=== PATIENT | male | born 1965 | race Two or more races ===

== ENCOUNTER 2020-10-19 10:24 | Outpatient (REF) | payer BC, SELFPAY | END 2020-10-19 10:25 | disposition home or self-care (01) | LOC: HO.LAB 10:24 | PROVIDERS: Visit Provider Internal Medicine | DX: Z20.828 Contact with and (suspected) exposure to other viral communicable diseases (principal) | CPT/HCPCS: C9803; U0003 ==

== ENCOUNTER 2021-07-28 06:01 | Outpatient (REF) | payer BC, SELFPAY ==
[2021-07-28 11:55] LABS: Alanine Aminotransferase 31 U/L (0-40); Albumin Level 4.3 g/dL (3.5-5.0); Alkaline Phosphatase 55 U/L (39-117); Anion Gap 11 (12-20); Aspartate Amino Transferase 27 U/L (5-37); Bilirubin Total 0.7 mg/dL (0.0-1.0); Blood Urea Nitrogen 23 mg/dL (9-16); Calcium 9.7 mg/dL (8.4-10.2); Carbon Dioxide 29 mmol/L (22-29); Chloride 105 mmol/L (96-108); Cholesterol 247 mg/dL; Estimated Glomerular Filt Rate > 60; Glucose Fasting 81 mg/dL (60-99); HDL Cholesterol 37 mg/dL; LDL Cholesterol Calculated 183 mg/dl; Potassium 4.6 mmol/L (3.3-5.1); Sodium 140 mmol/L (135-145); Total Protein 7.9 g/dL (6.5-8.0); Triglycerides 137 mg/dL
[2021-07-28 12:19] LABS: TSH reflex Free T4 1.73 uIU/mL (0.32-4.0)
== END 2021-07-28 06:02 | disposition home or self-care (01) ==
LOC: HO.HMGCLDS 06:01
PROVIDERS: PCP Family Medicine; Visit Provider Family Medicine
DX: Z00.00 Encounter for general adult medical examination without abnormal findings (principal)
CPT/HCPCS: 36415; 80053; 80061; 84443

== ENCOUNTER → 2021-09-16 14:37 | Outpatient (BNVA) | payer BC, SELFPAY | PROVIDERS: PCP Family Medicine; Referring Provider Family Medicine; Visit Provider Internal Medicine Cardiovascular Disease | DX: I49.1 Atrial premature depolarization (principal); E78.5 Hyperlipidemia, unspecified; Z91.89 Other specified personal risk factors, not elsewhere classified | CPT/HCPCS: 93005 ==

== ENCOUNTER 2021-09-22 17:52 | Outpatient (REF) | payer BC, SELFPAY ==
--- NOTE | ~2021-09-22 | MR_ITS ---
EXAMINATION: MR THORACIC AND LUMBAR SPINE WITHOUT CONTRAST CLINICAL INFORMATION: Dorsalgia, unspecified. Patient states low back pain. COMPARISON: None TECHNIQUE: Multiplanar multisequence MRI of the thoracic and lumbar spine was performed without contrast. FINDINGS: Thoracic spine: The thoracic vertebral bodies maintain normal heights and alignment. There is accentuation of the normal thoracic kyphosis. There is mild multilevel intervertebral disc height loss. A hemangioma is seen within the T10 vertebral body. The thoracic cord signal appears normal. There is no disc herniation. No spinal canal or neural foraminal stenosis is seen. The extraspinal soft tissues are within normal limits. Small foci of T2 hyperintensity are seen within the liver which are indeterminate but statistically represent cysts or hemangiomata. Lumbar spine: The lumbar vertebral bodies maintain normal heights and alignment. There is mild disc height loss at L1-L2, L4-L5, and L5-S1. Minimal amount of bone marrow edema is seen at the superior endplate of L2. 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 The distal spinal cord appears normal. The conus medullaris terminates normally at the L1 level. The visualized paraspinal muscles and intra-abdominal and pelvic contents are within normal limits. L1-L2: No spinal canal or neural foraminal stenosis. L2-L3: No spinal canal stenosis. Mild facet arthropathy. No neural foraminal stenosis. L3-L4: Disc bulging with ligamentum flavum infolding moderate facet arthropathy. Mild bilateral neural foraminal stenosis. Mild spinal canal stenosis. L4-L5: Shallow left foraminal protrusion with mild to moderate facet arthropathy. Mild left neural foraminal stenosis with abutment of the exiting left L4 nerve root. No spinal canal stenosis. L5-S1: Shallow central protrusion with moderate facet arthropathy. No spinal canal or neural foraminal stenosis. MR/MR thoracic spine wo con IMPRESSION: Thoracic spine: Accentuation of the normal thoracic kyphosis. No disc herniation, spinal canal stenosis, or neural foraminal stenosis. Lumbar spine: Mild degenerative spondylosis. No significant spinal canal stenosis. At L4-L5 there is abutment of the exiting left L4 nerve root related to shallow foraminal protrusion.
== END 2021-09-22 17:53 | disposition home or self-care (01) ==
LOC: HO.MRI 17:52
PROVIDERS: Visit Provider Family Medicine
DX: M54.9 Dorsalgia, unspecified (principal); R20.0 Anesthesia of skin
CPT/HCPCS: 72146; 72148

== ENCOUNTER 2022-06-16 06:02 | Outpatient (REF) | payer BC, SELFPAY ==
[2022-06-16 11:41] LABS: Cholesterol 171 mg/dL; HDL Cholesterol 36 mg/dL; LDL Cholesterol Calculated 118 mg/dl; Triglycerides 89 mg/dL
== END 2022-06-16 06:03 | disposition home or self-care (01) ==
LOC: HO.HMGCLDS 06:02
PROVIDERS: PCP Family Medicine; Visit Provider Family Medicine
DX: Z00.00 Encounter for general adult medical examination without abnormal findings (principal)
CPT/HCPCS: 36415; 80061

== ENCOUNTER → 2022-12-24 14:59 | Outpatient (BNVA) | payer BC, SELFPAY | PROVIDERS: PCP Family Medicine; Referring Provider Family Medicine; Visit Provider Internal Medicine Cardiovascular Disease | DX: I49.1 Atrial premature depolarization (principal); E78.5 Hyperlipidemia, unspecified | CPT/HCPCS: 93005 ==

== ENCOUNTER 2023-01-08 06:08 | Outpatient (REF) | payer BC, SELFPAY ==
[2023-01-08 11:24] LABS: Appearance Urine Clear; Color Urine Yellow; Glucose Urine UA Negative (Negative); Leukocyte Esterase Urine Trace (Negative); Nitrite Urine Negative (Negative); PH 6.5 (5.0-9.0); UMIC TRIGGER UA YES; Urine Blood Negative (Negative); Urine Ketones Negative (Negative); Urine Protein Trace mg/dL (Neg-Trace)
[2023-01-08 11:27] LABS: Bacteria Urine None Seen (None Seen); Hyaline Casts Urine 0-2 /LPF (0-2); RBC Urine 0-2 /HPF (0-2); Squamous Epithelial Cell Urine 0-2 /HPF (0-2); WBC Urine 0-5 /HPF (0-5)
[2023-01-08 12:46] LABS: Alanine Aminotransferase 105 U/L (0-40); Albumin Level 4.2 g/dL (3.5-5.0); Alkaline Phosphatase 46 U/L (39-117); Anion Gap 11 (12-20); Aspartate Amino Transferase 52 U/L (5-37); Bilirubin Total 0.5 mg/dL (0.0-1.0); Blood Urea Nitrogen 18 mg/dL (9-16); Carbon Dioxide 27 mmol/L (22-29); Chloride 106 mmol/L (96-108); Cholesterol 154 mg/dL; Estimated Glomerular Filt Rate > 60; Glucose Fasting 94 mg/dL (60-99); HDL Cholesterol 39 mg/dL; LDL Cholesterol Calculated 92 mg/dl; Potassium 4.2 mmol/L (3.3-5.1); Prostate Specific Antigen Scr 1.04 ng/mL (<0.05-4.0); Sodium 140 mmol/L (135-145); TSH reflex Free T4 1.47 uIU/mL (0.32-4.0); Total Protein 7.2 g/dL (6.5-8.0); Triglycerides 117 mg/dL
[2023-01-08 12:54] LABS: Microalbum/Creatinine Ratio Ur 27.3 ug/mg cr
== END 2023-01-08 06:09 | disposition home or self-care (01) ==
LOC: HO.HMGCLDS 06:08
PROVIDERS: PCP Family Medicine; Visit Provider Family Medicine
DX: Z00.00 Encounter for general adult medical examination without abnormal findings (principal); I10 Essential (primary) hypertension; Z12.5 Encounter for screening for malignant neoplasm of prostate
CPT/HCPCS: 36415; 80053; 80061; 81001; 82043; 84153; 84443

== ENCOUNTER 2023-05-03 11:21 | Outpatient (REF) | payer BC, SELFPAY ==
[2023-05-03 14:21] LABS: Alanine Aminotransferase 29 U/L (0-40); Albumin Level 4.2 g/dL (3.5-5.0); Alkaline Phosphatase 56 U/L (39-117); Anion Gap 13 (12-20); Aspartate Amino Transferase 25 U/L (5-37); Bilirubin Total 0.6 mg/dL (0.0-1.0); Blood Urea Nitrogen 19 mg/dL (9-16); Calcium 9.8 mg/dL (8.4-10.2); Carbon Dioxide 24 mmol/L (22-29); Chloride 107 mmol/L (96-108); Estimated Glomerular Filt Rate > 60; Glucose Random 108 mg/dL (60-115); Potassium 4.1 mmol/L (3.3-5.1); Sodium 140 mmol/L (135-145); Total Protein 7.9 g/dL (6.5-8.0)
[2023-05-03 14:51] LABS: Erythrocyte Sedimentation Rate 3 MM/HR (0-15)
[2023-05-05 22:44] LABS: CRP High Sensitivity 0.6 mg/L
== END 2023-05-03 11:22 | disposition home or self-care (01) ==
LOC: HO.HMGCLDS 11:21
PROVIDERS: PCP Family Medicine; Visit Provider Family Medicine
DX: R74.8 Abnormal levels of other serum enzymes (principal); M25.50 Pain in unspecified joint
CPT/HCPCS: 36415; 80053; 85652; 86141

== ENCOUNTER 2023-06-01 16:41 | Outpatient (AMB) | payer BC, SELFPAY ==
--- NOTE | 2023-06-01 16:34 | A.OFFPC_ITS ---
Intake Visit Reasons: f/u elevated liver enzymes Intake Note: Patient is calling to follow up on blood work today. 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 Allergies acetaminophen [Percocet] Allergy (Unknown, Verified 06/01/23 16:37) NAUSEA/TINGLING FACE oxycodone [Percocet] Allergy (Unknown, Verified 06/01/23 16:37) NAUSEA/TINGLING FACE penicillin V Allergy (Unknown, Verified 06/01/23 16:37) DIARRHEA Sulfa (Sulfonamide Antibiotics) Allergy (Unknown, Verified 06/01/23 16:37) rash Sulfacet-R Allergy (Unknown, Uncoded 04/27/23 14:20) rash Medication List - Last Reconciled 06/01/23 by Suleiman Foreman MD atorvastatin 10 mg PO DAILY 90 days baclofen 10 mg PO BID PRN celecoxib 200 mg PO BID PRN 90 days omeprazole 40 mg PO DAILY 90 days testosterone 2 pumps topical DAILY Tobacco use date assessed: 06/01/23 Dental Screening Dental Screen Date: 06/01/23 Did you have a dental visit in the last 12 months?: Yes Did you have a dental problem in the last 6 months where you did not have access to dental care?: No Was dental information given to patient?: Patient has dentist HPI f/u elevated liver enzymes HPI Details 57 y/o male presents to f/u elevated liver enzymes. Labs were drawn 05/03/23. Reviewed labs with pt. Liver enzymes within normal range - AST improved from 52 to 25. ALT improved from 105 to 29. He denies any significant changes. He has an appt. with rheumatology in July. [facility] Medical History (Updated 06/01/23 @ 16:39 by Renu Snowden MA) No pertinent past medical history Surgical History (Updated 06/01/23 @ 16:39 by Renu Snowden MA) No pertinent past surgical history Social History Housing: House Patient Tobacco Use Status: Never used Tobacco e-Cigarette/Vaping Use: Never Used Second Hand Smoke Exposure: No service: No Current occupational status: employed Current occupational exposures/hazards: No Cognitive needs: No Hearing needs: No Vision needs: Yes Questionnaire Thrive Questionnaire Date Thrive assessed: 09/09/21 LINDA-7 AMB Questionnaire LINDA-7 Date LINDA - 7 assessed: 02/05/22 Source: Developed by Drs. Anam Campbell, Radha Nava, Toni Arana and colleagues, with an educational lin from [facility]. Review of Systems Const Denies chills, Denies fatigue, Denies fever(s), Denies headache(s) and Denies weakness ENT Denies dizziness and Denies headache(s) Card Denies dyspnea Resp Denies cough, Denies dyspnea, Denies wheezing and Denies other (shortness of breath) Musc Denies numbness and Denies tingling Neuro Denies dizziness, Denies headache(s), Denies numbness, Denies tingling and Denies weakness Psych Denies anxiety and Denies depression Endo Denies fatigue Aller/Immun Denies wheezing Physical exam (Primary Care) Tobacco/Smoking Status: Tobacco use Status Tobacco use date assessed 06/01/23 06/01/23 16:43 Patient Tobacco Use Status Never used Tobacco 06/01/23 16:42 e-Cigarette/Vaping Use Never Used 06/01/23 16:42 Thrive Assessment: Date of Thrive Assessment Date Thrive assessed 09/09/21 06/01/23 16:42 Telehealth Telehealth Location of provider rendering services: practice address Location of patient: other Patient Identification confirmed using: Name, : Yes Telehealth method: voice only Patient verbally consented to treatment: Yes Patient verbally consented to billing insurance company: Yes Patient informed of any privacy concerns related to visit: Yes Minutes spent on Phone/Video with Pt.: 7 Assessment and Plan Assessment & Plan (1) Elevated liver enzymes: Code(s): R74.8 - Abnormal levels of other serum enzymes Plan: Repeat liver enzymes are back within normal limits We can monitor periodically (2) Polyarthralgia: Code(s): M25.50 - Pain in unspecified joint Plan: Ongoing polyarthralgia and back pain Using some celecoxib which helps He has an appointment with rheumatology Orders: Orders Comprehensive [place]. Panel Fast 6 Months Z00.00 - Encounter for general adult medical examination without abnormal findings Lipid Panel 6 Months Z00.00 - Encounter for general adult medical examination without abnormal findings Prostate Specific Antigen Scr 6 Months Z12.5 - Encounter for screening for malignant neoplasm of prostate TSH reflex Free T4 6 Months Z00.00 - Encounter for general adult medical examination without abnormal findings Microalbumin, Random (w Creat) 6 Months I10 - Essential (primary) hypertension Complete Blood Count Auto Diff 6 Months Z00.00 - Encounter for general adult medical examination without abnormal findings UA and rflx microscopic 6 Months Z00.00 - Encounter for general adult medical examination without abnormal findings Coding Level of Care Code Tele Est Pt Level 2 (98803) Diagnoses Elevated liver enzymes R74.8 Polyarthralgia M25.50
== END 2023-06-01 17:00 ==
LOC: HO.HMGFM 16:41
PROVIDERS: PCP Family Medicine; Visit Provider Family Medicine
DX: R74.8 Abnormal levels of other serum enzymes (principal); M25.50 Pain in unspecified joint
CPT/HCPCS: 99441

== ENCOUNTER 2023-08-10 14:56 | Outpatient (AMB) | payer BC, SELFPAY ==
--- NOTE | 2023-08-10 15:04 | MHC.OFFVIS ---
Intake Vital Signs 08/10/23 15:05 Height 5 ft 9 in Weight 200 lb 13.458 oz BMI 29.7 BP 146/84 H Blood Pressure Location Rt brachial Position Sitting Pulse 61 Pulse Source Pulse Oximeter Temp 98.1 F Temp Source Skin Pulse Oximetry (%) 96 Intake Visit Reasons: Joint Pain Intake Note: New pt presents today for consult. Past h/o lyme disease. Treated by Dr Heather MANN C/o pain in back, multiple joints. Reports neck surgery in the past. States pain is killing me Promotion Specialist Required: No Accompanied by: Self / Same As Patient Allergies acetaminophen [Percocet] Allergy (Unknown, Verified 08/10/23 15:11) NAUSEA/TINGLING FACE oxycodone [Percocet] Allergy (Unknown, Verified 08/10/23 15:11) NAUSEA/TINGLING FACE penicillin V Allergy (Unknown, Verified 08/10/23 15:11) DIARRHEA Sulfa (Sulfonamide Antibiotics) Allergy (Unknown, Verified 08/10/23 15:11) rash Sulfacet-R Allergy (Unknown, Uncoded 08/10/23 15:11) rash Medication List - Last Reconciled 08/10/23 by Gladys Beck MD atorvastatin 10 mg PO DAILY 90 days baclofen 10 mg PO BID PRN celecoxib 200 mg PO BID PRN 90 days omeprazole 40 mg PO DAILY 90 days tadalafil 10 mg PO DAILY PRN testosterone 2 pumps topical DAILY tramadol 50 mg PO BID PRN HPI HPI Comments History of Present Illness Details This is a 57-year-old male who presents for evaluation of diffuse joint pain. Patient stated that he found paperwork from his neck surgery 15 years ago indicating ankylosing spondylitis. He states that he used to see Dr. Childs at the [facility] and he was diagnosed with arthritis and was treated with NSAIDs. He was never formally treated for ankylosing spondylitis. Patient states that he has diffuse pain everywhere, he has neck stiffness. She also has pain in his elbows, hands, thumbs, knees, lower back. States that his back is stiff almost all the time. Not particularly worse in the morning, morning stiffness lasts 15-30 minutes. Denies any history suggestive of iritis. He is unaware of any family history of autoimmune rheumatic disease. States that he was diagnosed with Lyme disease about 20 years ago and was on antibiotics for months. States that he was told he will always have chronic Lyme disease. Earlier this year he had an endoscopy for hiatal hernia and was told he has no villi he was diagnosed with celiac disease. States that he has been avoiding gluten for the last 6-7 months states that his joint pain is somewhat better. Denied any GI symptoms related to celiac disease. [facility] Medical History Celiac disease Chronic musculoskeletal pain Hx of Lyme disease Polyarthralgia Surgical History H/O sinus surgery H/O neck surgery Hx of hernia repair Family History Mother Pancreatic cancer Father No problems noted. Social History Household Members: Spouse and Children Housing: House Alcohol intake: current Alcohol intake frequency: a few times a month Patient Tobacco Use Status: Never used Tobacco e-Cigarette/Vaping Use: Never Used Second Hand Smoke Exposure: No service: No Current occupational status: employed Current occupational exposures/hazards: No Cognitive needs: No Hearing needs: No Vision needs: Yes Review of Systems Const Reports fatigue and Reports weakness Eyes Reports change in vision ENT Reports neck pain and Reports tinnitus Card Reports irregular heart rhythm Resp Reports no additional complaints Musc Reports back pain, Reports arthralgias, Reports joint swelling, Reports neck pain and Reports stiffness Neuro Reports weakness Endo Reports fatigue Physical Exam Vital Signs: Last Vital Signs Temp 98.1 F 08/10/23 15:05 Pulse 61 08/10/23 15:05 BP 146/84 H 08/10/23 15:05 Pulse Ox 96 08/10/23 15:05 BMI result Body Mass Index 29.7 Const General: cooperative, healthy appearing and comfortable Nutritional Appearance: overweight Orientation/consciousness: patient oriented x3 Limitations: no limitations HEENT Head: Yes normocephalic and Yes atraumatic Mouth: moist mucous membranes Resp Effort & Inspection: normal respiratory effort and able to speak in complete sentences Auscultation: clear to auscultation bilaterally Cardio Rate: regular rate Rhythm: regular rhythm GI Inspection: No distended Palpation (GI): Soft to palpation and nontender Skin General skin exam: no rashes or lesions noted Neuro General: patient oriented x3 Extrem Other: Osteoarthritic changes of both hands with no active synovitis No nail pitting Normal nailfold capillaroscopy Limited neck range of motion in all directions Limited lateral flexion test bilaterally Herman test 10 to 12.5 cm Negative straight leg raise test bilaterally Negative Letty test bilaterally Assessment & Plan Assessment & Plan (1) Polyarthralgia: Code(s): M25.50 - Pain in unspecified joint Plan: This is a 57-year-old male who presents for evaluation of diffuse joint pain and stiffness. Patient stated that his chart included a diagnosis of ankylosing spondylitis in the past but he was never formally treated for ankylosing spondylitis. Will order comprehensive serology to screen for underlying autoimmune rheumatic disease. Plan I spent 47 minutes reviewing patient's chart, evaluating patient, ordering diagnostic workup, counseling patient and documenting in the chart Orders: Orders XR sacroiliac joint min 3V Today M54.50 - Low back pain, unspecified Anti DNA DS Antibody Today M25.50 - Pain in unspecified joint Complement C3 Today M25.50 - Pain in unspecified joint C Reactive Protein Today M25.50 - Pain in unspecified joint UA w Microscopic Today M25.50 - Pain in unspecified joint Cyclic Citrullinated Peptide Today M25.50 - Pain in unspecified joint Transglutaminase Ab IgG Today K90.0 - Celiac disease HLA B27 Today M54.50 - Low back pain, unspecified Anti Extractable Nuclear Ag Today M25.50 - Pain in unspecified joint Complement C4 Today M25.50 - Pain in unspecified joint Erythrocyte Sedimentation Rate Today M25.50 - Pain in unspecified joint Protein Creatinine Ratio, Ur Today M25.50 - Pain in unspecified joint Sjogren's Antibodies Today M25.50 - Pain in unspecified joint Complete Blood Count Auto Diff Today K90.0 - Celiac disease Comprehensive Met. Panel Today K90.0 - Celiac disease Creatine Kinase Total Today G89.29 - Other chronic pain, M79.18 - Myalgia, other site Rheumatoid Factor Today M25.50 - Pain in unspecified joint Endomysial IgA rflx Titer Today K90.0 - Celiac disease Immunoglobulin A Today K90.0 - Celiac disease Coding Level of Care Code New Pt Level 4 (83376) Diagnoses Polyarthralgia M25.50
[2023-08-10 15:05] VITALS: BP 146/84; PULSE 61; TEMP 36.7; O2SAT 96; BMI 29.7
== END 2023-08-10 15:55 | disposition home or self-care (01) ==
PROVIDERS: PCP Family Medicine; Visit Provider Student in an Organized Health Care Education/Training Program
DX: M25.50 Pain in unspecified joint (principal)
CPT/HCPCS: 99204

== ENCOUNTER 2023-08-10 14:56 | Outpatient (REF) | payer BC, SELFPAY ==
--- NOTE | ~2023-08-10 | XR_ITS ---
EXAMINATION: XR SACROILIAC JOINTS CLINICAL INFORMATION: Low back pain COMPARISON: 07/25/2020 pelvis TECHNIQUE: 3 views of the sacroiliac joints FINDINGS: Bones and soft tissues are normal. No fracture. Alignment is anatomic. Sacroiliac joint spaces are well-maintained without erosions or surrounding sclerosis. XR/XR sacroiliac joint min 3V IMPRESSION: Normal sacroiliac joints.
[2023-08-10 16:17] LABS: MANUAL DIFF FLAG NO
[2023-08-10 17:30] LABS: Basophils Percent Auto 0.8 % (0-2); Eosinophils Absolute Auto 0.2 X10*3/uL (0.0-0.4); Eosinophils Percent Auto 4.4 % (0-4); Hematocrit 45.8 % (42.0-52.0); Hemoglobin 15.6 g/dl (14.0-18.0); Imm Gran Abs Auto 0.01 X10*3/uL (0.00-0.03); Imm Gran Pct Auto 0.2 % (0.0-0.4); Lymphocytes Absolute Auto 1.9 X10*3/uL (1.2-4.9); Lymphocytes Percent Auto 36.4 % (20-40); Mean Corpuscular HGB Conc 34.1 g/dl (31.0-36.0); Mean Corpuscular Hemoglobin 30.5 pg (27.0-33.0); Mean Corpuscular Volume 89.6 fL (80.0-98.0); Mean Platelet Volume 11.3 fL (9.4-12.4); Monocytes Absolute Auto 0.7 X10*3/uL (0.1-1.2); Monocytes Percent Auto 13.4 % (2-11); Neutrophils Absolute Auto 2.4 x10*3/uL (2.0-8.3); Neutrophils Percent Auto 44.8 % (45-73); Platelet Count 175 X10*3/uL (160-400); Red Blood Count 5.11 X10*6/uL (4.60-5.80); Red Cell Distribution Width 12.6 % (11.0-16.0); White Blood Count 5.3 X10*3/uL (4.8-10.8)
[2023-08-10 18:17] LABS: Erythrocyte Sedimentation Rate 5 MM/HR (0-15)
[2023-08-10 18:21] LABS: Rheumatoid Factor < 13.0 IU/mL (<15.0)
[2023-08-10 18:21] LABS: Appearance Urine Clear; Color Urine Yellow; Glucose Urine UA Negative (Negative); Leukocyte Esterase Urine Negative (Negative); Nitrite Urine Negative (Negative); Urine Blood Negative (Negative); Urine Ketones Negative (Negative); Urine Protein Negative (Neg-Trace)
[2023-08-10 18:23] LABS: Alanine Aminotransferase 25 U/L (0-40); Albumin Level 4.4 g/dL (3.5-5.0); Alkaline Phosphatase 55 U/L (39-117); Anion Gap 11 (12-20); Aspartate Amino Transferase 25 U/L (5-37); Bilirubin Total 0.4 mg/dL (0.0-1.0); Blood Urea Nitrogen 18 mg/dL (9-16); C Reactive Protein < 0.10 mg/dL (< or = 0.50); Calcium 9.6 mg/dL (8.4-10.2); Carbon Dioxide 25 mmol/L (22-29); Chloride 106 mmol/L (96-108); Estimated Glomerular Filt Rate > 60; Glucose Random 100 mg/dL (60-115); Potassium 3.9 mmol/L (3.3-5.1); Sodium 138 mmol/L (135-145); Total Protein 8.1 g/dL (6.5-8.0)
[2023-08-10 18:26] LABS: Bacteria Urine None Seen (None Seen); Hyaline Casts Urine 0-2 /LPF (0-2); RBC Urine 0-2 /HPF (0-2); Squamous Epithelial Cell Urine 0-2 /HPF (0-2); WBC Urine 0-5 /HPF (0-5)
[2023-08-10 18:27] LABS: Creatinine Urine 130.95 mg/dL; Protein/Creatinine Ratio, Ur 0.11 (<0.2); Total Protein Urine Random 15 mg/dL (<12)
[2023-08-12 13:08] LABS: Anti DNA DS Antibody 1 IU/mL; Antibody to SS-A Antigen <1.0 NEG AI (<1.0 NEG); Antibody to SS-B Antigen <1.0 NEG AI (<1.0 NEG); SM/Ribonucleoprotein Ab <1.0 NEG AI (<1.0 NEG); Smith Protein <1.0 NEG AI (<1.0 NEG)
[2023-08-12 13:53] LABS: Cyclic Citrullinated Peptide <16 UNITS
[2023-08-13 02:34] LABS: Complement C3 121 mg/dL (82-185)
[2023-08-14 07:24] LABS: HLA B27 Negative (Negative)
== END 2023-08-10 14:57 | disposition home or self-care (01) ==
LOC: HO.XRAY 14:56
PROVIDERS: PCP Family Medicine; Visit Provider Student in an Organized Health Care Education/Training Program
DX: K90.0 Celiac disease (principal); M54.50 Low back pain, unspecified; M79.18 Myalgia, other site; G89.29 Other chronic pain
CPT/HCPCS: 36415; 72202; 80053; 81001; 82550; 82570; 84156; 85025; 85652; 86140; 86160; 86200; 86225; 86235; 86431; 86812

== ENCOUNTER 2023-08-27 11:59 | Outpatient (AMB) | payer BC, SELFPAY ==
[2023-08-27 12:02] VITALS: BP 140/100; PULSE 78; TEMP 36.8; O2SAT 98; BMI 29.6
--- NOTE | 2023-08-27 12:02 | A.OFFVIS_ITS ---
Intake Vital Signs 08/27/23 12:02 Height 5 ft 9 in Weight 200 lb 6.403 oz BMI 29.6 BP 140/100 H Blood Pressure Location Rt brachial Position Sitting Pulse 78 Pulse Source Pulse Oximeter Temp 98.2 F Temp Source Skin Pulse Oximetry (%) 98 Oxygen Delivery Method Room Air Intake Visit Reasons: polyarthralgia Intake Note: Pt presents today for follow up and test results. 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 Accompanied by: Self / Same As Patient Allergies acetaminophen [Percocet] Allergy (Unknown, Verified 08/27/23 12:05) NAUSEA/TINGLING FACE oxycodone [Percocet] Allergy (Unknown, Verified 08/27/23 12:05) NAUSEA/TINGLING FACE penicillin V Allergy (Unknown, Verified 08/27/23 12:05) DIARRHEA Sulfa (Sulfonamide Antibiotics) Allergy (Unknown, Verified 08/27/23 12:05) rash Sulfacet-R Allergy (Unknown, Uncoded 08/27/23 12:05) rash Medication List - Last Reconciled 08/27/23 by Gladys Beck MD atorvastatin 10 mg PO DAILY 90 days baclofen 10 mg PO BID PRN celecoxib 200 mg PO BID PRN 90 days omeprazole 40 mg PO DAILY 90 days tadalafil 10 mg PO DAILY PRN testosterone 2 pumps topical DAILY tramadol 50 mg PO BID PRN HPI HPI Comments History of Present Illness Details Patient returns for follow-up after completion of his blood work. Feels about the same overall. States that today is a good day. Initial history: This is a 57-year-old male who presents for evaluation of diffuse joint pain. Patient stated that he found paperwork from his neck surgery 15 years ago indicating ankylosing spondylitis. He states that he used to see Dr. Childs at the [facility] and he was diagnosed with arthritis and was treated with NSAIDs. He was never formally treated for ankylosing spondylitis. Patient states that he has diffuse pain everywhere, he has neck stiffness. She also has pain in his elbows, hands, thumbs, knees, lower back. States that his back is stiff almost all the time. Not particularly worse in the morning, morning stiffness lasts 15-30 minutes. Denies any history suggestive of iritis. He is unaware of any family history of autoimmune rheumatic disease. States that he was diagnosed with Lyme disease about 20 years ago and was on antibiotics for months. States that he was told he will always have chronic Lyme disease. Earlier this year he had an endoscopy for hiatal hernia and was told he has no villi he was diagnosed with celiac disease. States that he has been avoiding gluten for the last 6-7 months states that his joint pain is somewhat better. Denied any GI symptoms related to celiac disease. [facility] Medical History Celiac disease Chronic musculoskeletal pain Hx of Lyme disease Polyarthralgia Surgical History H/O sinus surgery H/O neck surgery Hx of hernia repair Family History Mother Pancreatic cancer Father No problems noted. Social History Household Members: Spouse and Children Housing: House Alcohol intake: current Alcohol intake frequency: a few times a month Patient Tobacco Use Status: Never used Tobacco e-Cigarette/Vaping Use: Never Used Second Hand Smoke Exposure: No service: No Current occupational status: employed Current occupational exposures/hazards: No Cognitive needs: No Hearing needs: No Vision needs: Yes Review of Systems Musc Reports arthralgias, Reports joint swelling and Reports stiffness Physical Exam Vital Signs: Last Vital Signs Temp 98.2 F 08/27/23 12:02 Pulse 78 08/27/23 12:02 BP 140/100 H 08/27/23 12:02 Pulse Ox 98 08/27/23 12:02 Oxygen Delivery Method Room Air 08/27/23 12:02 BMI result Body Mass Index 29.6 Const General: cooperative, healthy appearing and comfortable Nutritional Appearance: overweight Limitations: no limitations HEENT Head: Yes normocephalic and Yes atraumatic Mouth: moist mucous membranes Resp Effort & Inspection: normal respiratory effort and able to speak in complete sentences Extrem Other: Osteoarthritic changes of both hands with no active synovitis No nail pitting Normal nailfold capillaroscopy Limited neck range of motion in all directions Limited lateral flexion test bilaterally Herman test 10 to 12.5 cm Negative straight leg raise test bilaterally Negative Letty test bilaterally Assessment & Plan Assessment & Plan (1) Generalized osteoarthritis: Code(s): M15.9 - Polyosteoarthritis, unspecified Plan: This is a 57-year-old male who presents for evaluation of diffuse joint pain and stiffness.? Patient stated that his chart included a diagnosis of ankylosing spondylitis in the past but he was never formally treated for ankylosing spondylitis.? I do not see any signs of an autoimmune rheumatic disease upon my evaluation today. Patient has normal inflammatory markers, he has a positive A NA with negative sub serologies, negative RF/CCP/HLA B27. Normal SI joints on x-ray. Clinical picture consistent with generalized osteoarthritis. We had a long discussion about osteoarthritis and different management strategies. Follow-up as needed Plan I spent 27 minutes reviewing patient's chart, evaluating patient, counseling patient and documenting in the chart Coding Level of Care Code Est Pt Level 4 (22722) Diagnoses Generalized osteoarthritis M15.9
== END 2023-08-27 12:26 | disposition home or self-care (01) ==
PROVIDERS: PCP Family Medicine; Visit Provider Student in an Organized Health Care Education/Training Program
DX: M15.9 Polyosteoarthritis, unspecified (principal)
CPT/HCPCS: 99214

== ENCOUNTER → 2023-08-27 11:59 | Outpatient (BNVA) | payer BC, SELFPAY | PROVIDERS: PCP Family Medicine; Visit Provider Student in an Organized Health Care Education/Training Program ==

== ENCOUNTER 2023-12-17 13:55 | Outpatient (AMB) | payer BC, SELFPAY ==
--- NOTE | 2023-12-17 14:11 | A.OFFPC_ITS ---
Vital Signs 12/17/23 14:12 Height 5 ft 9 in Weight 195 lb BMI 28.8 BP 140/82 H Blood Pressure Location Lt brachial Position Sitting Pulse 65 Pulse Source Pulse Oximeter Pulse Oximetry (%) 99 Oxygen Delivery Method Room Air Intake Visit Reasons: hand pain Intake Note: Patient is here with bilateral hand pain since the last time he was seen. Allergies acetaminophen [Percocet] Allergy (Unknown, Verified 12/17/23 14:14) NAUSEA/TINGLING FACE oxycodone [Percocet] Allergy (Unknown, Verified 12/17/23 14:14) NAUSEA/TINGLING FACE penicillin V Allergy (Unknown, Verified 12/17/23 14:14) DIARRHEA Sulfa (Sulfonamide Antibiotics) Allergy (Unknown, Verified 12/17/23 14:14) rash Sulfacet-R Allergy (Unknown, Uncoded 12/17/23 14:14) rash Tobacco use date assessed: 12/17/23 HPI hand pain HPI Details 58 y/o male presents today with complain ts of bilateral hand pain. Had been on celecoxib before. [facility] Medical History Celiac disease Chronic musculoskeletal pain Hx of Lyme disease Polyarthralgia Surgical History H/O sinus surgery H/O neck surgery Hx of hernia repair Family History Mother Pancreatic cancer Father No problems noted. Social History Household Members: Spouse and Children Housing: House Alcohol intake: current Alcohol intake frequency: a few times a month Patient Tobacco Use Status: Never used Tobacco e-Cigarette/Vaping Use: Never Used Second Hand Smoke Exposure: No service: No Current occupational status: employed Current occupational exposures/hazards: No Cognitive needs: No Hearing needs: No Vision needs: Yes Questionnaire PHQ-9 Over the last 2 weeks, how often have you been bothered by any of the following problems? 1. Little interest or pleasure in doing things: not at all 2. Feeling down, depressed, or hopeless: not at all 3. Trouble falling or staying asleep, or sleeping too much: not at all 4. Feeling tired or having little energy: not at all 5. Poor appetite or overeating: not at all 6. Feeling bad about yourself - or that you are a failure or have let yourself or your family down: not at all 7. Trouble concentrating on things, such as reading the newspaper or watching television: not at all 8. Moving or speaking so slowly that other people could have noticed. Or the opposite - being so fidgety or restless that you have been moving around a lot more than usual: not at all 9. Thoughts that you would be better off or of hurting yourself in some way: not at all Total score: 0 Source: Developed by Drs. Anam Campbell, Radha Nava, Toni Arana and colleagues, with an educational lin from [employer]. Thrive Questionnaire Date Thrive assessed: 12/17/23 I am a: Patient What is your living situation today?: I have a steady place to live Within the past 12 months, did the food you bought not last and you didn't have the money to get more?: Never true Within the past 12 months, did you worry whether your food would run out before you got money to buy more?: Never true Do you have trouble paying for medicines?: No Do you have trouble getting transportation to medical appointments?: No Do you have trouble paying your heating and electricity bill?: No Do you have trouble taking care of your child, family member or friend?: No Do you have trouble with day-to-day activities such as bathing, preparing meals, shopping, managing finances, etc.?: No Are you currently unemployed and looking for a job?: No Are you interested in more education?: No THRIVE Score: 0 AUDIT C Alcohol Use Questionnaire (AUDIT-C) 1. How often do you have a drink containing alcohol?: Monthly or less 2. How many drinks containing alcohol do you have on a typical day when you are drinking?: 1 or 2 3. How often do you have six or more drinks on one occasion?: Never Total Score: 1 LINDA-7 AMB Questionnaire LINDA-7 Date LINDA - 7 assessed: 12/17/23 Feeling nervous, anxious, or on edge: 0 = Not at all Not being able to stop or control worryin = Not at all Worrying too much about different things: 0 = Not at all Trouble relaxin = Not at all Being so restless that it is hard to sit still: 0 = Not at all Becoming easily annoyed or irritable: 0 = Not at all Feeling afraid as if something awful might happen: 0 = Not at all Total LINDA-7 score (0-4 normal; 5-9 mild; 10-14 moderate; 15-21 severe): 0 Source: Developed by Drs. Anam Campbell, Radha Nava, Toni Arana and colleagues, with an educational lin from [employer]. Review of Systems Const Denies chills, Denies fatigue, Denies fever(s), Denies headache(s) and Denies weakness ENT Denies dizziness and Denies headache(s) Card Denies dyspnea Resp Denies cough, Denies dyspnea, Denies wheezing and Denies other (shortness of b reath) Musc Denies numbness and Denies tingling Neuro Denies dizziness, Denies headache(s), Denies numbness, Denies tingling and Denies weakness Psych Denies anxiety and Denies depression Endo Denies fatigue Aller/Immun Denies wheezing Physical exam (Primary Care) Vital Signs: Last Vital Signs Pulse 65 12/17/23 14:12 BP 140/82 H 12/17/23 14:12 Pulse Ox 99 12/17/23 14:12 Oxygen Delivery Method Room Air 12/17/23 14:12 BMI result Body Mass Index 28.8 Tobacco/Smoking Status: Tobacco use Status Tobacco use date assessed 12/17/23 12/17/23 14:14 Patient Tobacco Use Status Never used Tobacco 12/17/23 14:14 e-Cigarette/Vaping Use Never Used 12/17/23 14:14 PHQ-9: PHQ-9 Score PHQ-9: Total score 0 12/17/23 14:36 Thrive Assessment: Date of Thrive Assessment Date Thrive assessed 12/17/23 12/17/23 14:22 Const General: well developed; No acute distress Nutritional Appearance: well nourished Orientation/consciousness: patient oriented x3 HENMT Head: Yes normocephalic and Yes atraumatic Eyes General: appearance normal, both eyes and all related structures Pupils: Equal, round and reactive pupils present EOM: EOMs intact bilaterally Resp Effort & Inspection: normal respiratory effort Neuro General: patient oriented x3 and gait normal Cranial nerves: Yes Equal, round and reactive pupils present Psych Affect: normal affect Assessment and Plan Assessment & Plan (1) Bilateral hand pain: Code(s): M79.641 - Pain in right hand; M79.642 - Pain in left hand Plan: Ongoing?bilateral?hand?pain?which?is?worsened?with?manual?dexterity?tasks. Likely?some?arthritis?and?possible?right?hand?carpal?tunnel?syndrome.??Also?sign ificant?wrist?and?forearm?tendinitis. Start?meloxicam?and?use?consistently?unless?you?are?having?any?problems?with?thi s-call?for?any?problems. Ice/heat Relative?rest;?use?wrist?braces?or?Ryder?bandages?whe n?requiring?manual?dexterity?tasks May?benefit?from?occupational?therapy-ordered Ultimately,?patient?will?likely?need?injection?therapy?- referred?to?hand?surgeon (2) Forearm tendonitis: Code(s): M77.8 - Other enthesopathies, not elsewhere classified Orders: Orders OT Evaluation and Treatment Today M77.8 - Other enthesopathies, not elsewhere classified, M79.641 - Pain in right hand, M79.642 - Pain in left hand Referrals Hand Surgery Referral M77.8 - Other enthesopathies, not elsewhere classified, M79.641 - Pain in right hand, M79.642 - Pain in left hand Medications: New meloxicam 15 mg PO DAILY 30 days 30 tabs 2RF Coding Level of Care Code Tele Est Pt Level 2 (83434) Diagnoses Bilateral hand pain M79.641; M79.642 Forearm tendonitis M77.8
[2023-12-17 14:12] VITALS: BP 140/82; PULSE 65; O2SAT 99; BMI 28.8
== END 2023-12-17 14:52 | disposition home or self-care (01) ==
PROVIDERS: PCP Family Medicine; Visit Provider Family Medicine
DX: M79.641 Pain in right hand (principal); M79.642 Pain in left hand; M77.8 Other enthesopathies, not elsewhere classified
CPT/HCPCS: 99213

== ENCOUNTER 2023-12-28 14:53 | Outpatient (AMB) | payer BC, SELFPAY ==
[2023-12-28 14:57] VITALS: BP 126/80; PULSE 73; BMI 29.6
--- NOTE | 2023-12-28 14:57 | A.OFFVIS_ITS ---
Intake Vital Signs 12/28/23 14:57 Height 5 ft 9 in Weight 200 lb 9.93 oz BMI 29.6 BP 126/80 Blood Pressure Location Lt brachial Position Sitting Pulse 73 Intake Visit Reasons: 1 yr f/up s/p calcium score Intake Note: 1 year follow-up with ekg feeling good Marketing Community Liaison Required: No Allergies acetaminophen [Percocet] Allergy (Unknown, Verified 12/17/23 14:14) NAUSEA/TINGLING FACE oxycodone [Percocet] Allergy (Unknown, Verified 12/17/23 14:14) NAUSEA/TINGLING FACE penicillin V Allergy (Unknown, Verified 12/17/23 14:14) DIARRHEA Sulfa (Sulfonamide Antibiotics) Allergy (Unknown, Verified 12/17/23 14:14) rash Sulfacet-R Allergy (Unknown, Uncoded 12/17/23 14:14) rash Medication List - Last Reconciled 12/28/23 by Fuad Ho MD atorvastatin 10 mg PO DAILY 90 days baclofen 10 mg PO BID PRN celecoxib 200 mg PO BID PRN 90 days meloxicam 15 mg PO DAILY 30 days omeprazole 40 mg PO DAILY tadalafil 10 mg PO DAILY PRN testosterone 2 pumps topical DAILY tramadol 50 mg PO BID PRN HPI HPI Comments History of Present Illness Details Venancio comes for follow-up. He has been doing very well from cardiac perspective. Maintains exercise level without any exertional symptoms. He complains of diffuse muscle and joint pains. Not sure and has been worked up for rheumatologic issues without any findings. He denies any exertional chest pain or shortness of breath. His last LDL is 92 mg/dL in coronary calcium score was low with score of 5 in the LAD territory and 2 in the RCA territory suggestive underlying coronary atherosclerosis. [facility] Medical History Celiac disease Chronic musculoskeletal pain Hx of Lyme disease Polyarthralgia Surgical History H/O sinus surgery H/O neck surgery Hx of hernia repair Family History Mother Pancreatic cancer Father No problems noted. Social History Household Members: Spouse and Children Housing: House Alcohol intake: current Alcohol intake frequency: a few times a month Patient Tobacco Use Status: Never used Tobacco e-Cigarette/Vaping Use: Never Used Second Hand Smoke Exposure: No service: No Current occupational status: employed Current occupational exposures/hazards: No Cognitive needs: No Hearing needs: No Vision needs: Yes Review of Systems Const Denies chills, Denies fatigue, Denies fever(s), Denies frequent falls, Denies weakness, Denies weight gain and Denies weight loss ENT Denies dizziness Card Denies chest pain, Denies leg edema, Denies lightheadedness, Denies palpitations, Denies dyspnea, Denies dyspnea on exertion, Denies orthopnea and Denies other (loss of consciousness) Resp Denies cough, Denies dyspnea and Denies dyspnea on exertion GI Denies hematochezia and Denies change in stool character Musc Denies abnormal gait, Denies muscle weakness, Denies numbness, Denies radiating pain into limb and Denies tingling Neuro Denies Abnormal speech present, Denies abnormal gait, Denies dizziness, Denies frequent falls, Denies numbness, Denies tingling and Denies weakness Endo Denies fatigue and Denies palpitations Physical Exam Vital Signs: Last Vital Signs Pulse 73 12/28/23 14:57 BP 126/80 12/28/23 14:57 BMI result Body Mass Index 29.6 Const General: cooperative, comfortable, no acute distress, well developed, alert, awake and anxious Nutritional Appearance: overweight Orientation/consciousness: patient oriented x3 Limitations: no limitations HEENT Head: Yes normocephalic and Yes atraumatic Neck Neck: Yes trachea midline, Yes supple and Yes no JVD Chest Chest palpation & inspection: normal inspection of the chest Resp Effort & Inspection: normal respiratory effort Auscultation: clear to auscultation bilaterally Cardio Jugular venous distension: no JVD Palpation: normal PMI Rate: regular rate Rhythm: regular rhythm Heart sounds: S1 normal heart sound present, S2 normal heart sound present, no click, no gallops, no murmurs and no rubs Peripheral pulses: Peripheral pulses 2+ throughout GI Auscultation: normal bowel sounds Skin General skin exam: no rashes or lesions noted Neuro General: patient oriented x3 and no focal motor deficits Speech: No Abnormal speech present Extrem General: Yes no clubbing, cyanosis or edema Office Procedures EKG Details: EKG shows normal sinus rhythm with sinus arrhythmia otherwise normal EKG [id number], Complete Assessment & Plan Assessment & Plan (1) Elevated coronary artery calcium score: Code(s): R93.1 - Abnormal findings on diagnostic imaging of heart and coronary circulation Plan: Patient present of coronary calcium suggestive of underlying coronary atherosclerosis although score is low and at low risk side. He does have prior history of hyperlipidemia which has responded to low-dose statin therapy. Although he is developed diffuse muscular anginal discomfort which could be related to statin therapy. This was discussed with him. Will provide him with statin holiday for 2 weeks. He will report if he has improvement in his symptoms and will have to then look for alternatives at that point in time. This was discussed with him. Target goal LDL less than 70 mg/dL. He is advised to call or office in 2 weeks time to see how he is done with statin holiday. Will follow up in the clinic in 2 years time, sooner p.r.n.. Medications: Changed From omeprazole 40 mg PO DAILY 90 days 90 caps 2RF To omeprazole 40 mg PO DAILY On Hold atorvastatin Hold Comment: Doctor's Order 10 mg PO DAILY 90 days 90 tabs 3RF Coding Level of Care Code Est Pt Level 3 (03134) Diagnoses Elevated coronary artery calcium score R93.1 CPT Codes EKG - CPT: [id number], Complete ([id number])
== END 2023-12-28 15:19 | disposition home or self-care (01) ==
PROVIDERS: PCP Family Medicine; Visit Provider Internal Medicine Cardiovascular Disease
DX: R93.1 Abnormal findings on diagnostic imaging of heart and coronary circulation (principal)
CPT/HCPCS: 93010; 99213

== ENCOUNTER → 2023-12-28 14:53 | Outpatient (BNVA) | payer BC, SELFPAY | PROVIDERS: PCP Family Medicine; Visit Provider Internal Medicine Cardiovascular Disease | DX: R93.1 Abnormal findings on diagnostic imaging of heart and coronary circulation (principal) | CPT/HCPCS: 93005 ==

== ENCOUNTER 2024-01-26 14:30 | Outpatient (RCR) | payer BC, SELFPAY ==
--- NOTE | 2024-01-10 08:13 | MHC.OT.EP ---
[address] [phone] Occupational Therapy Plan of Care Patient Name: Venancio Siegel Date of Evaluation: 01/07/24 Diagnosis: B/L HAND PAIN, FOREARM TENDONITIS Pain Location: CURRENTLY PAINFREE AT REST R HAND > L FOREARM PAIN VARIES 3-10/10 Pain Score: 0-8/10 Pain Scale Used: Numeric (0 - 10) Aggravating Factors: GRABBING ITEMS, WEIGHT BEARING Alleviating Factors: MELOXICAM, R WRIST BRACE Assessment: MR SIEGEL REPORTS A FIVE YEAR HISTORY OF B/L HAND, WRIST AND FOREARM PAIN. HE HAS A LONG STANDING HISTORY OF OA. HE OFTEN DROPS ITEMS AND IS HAVING A MORE DIFFICULT TIME HOLDING WEIGHTS AT THE GYM AND COMPLETING HOME IMPROVEMENT TASKS AROUND HIS HOUSE. SUSPECTED ULNAR NERVE COMPRESSION AT WRIST AND POSSIBLE TFCC INJURY SEEN WITH PROVOCATIVE TESTING. HIS HISTORY OF B/L THUMB OA MAY ALSO BE CONTRIBUTING TO REFERRED PAIN IN B/L WRISTS. A 61% LIMITATION WAS REPORTED ON HIS QUICK DASH ASSESSMENT. ONGOING SKILLED OT IS WARRANTED TO ADDRESS THE AREAS MENTIONED BELOW AND IMPROVE QOL. Frequency and Duration: The patient will be seen 3X/WEEK FOR 4 WEEKS Short Term Goals: IND HEP IND JT PROTECTION AND ACTIVITY MODIFICATION IND EDEMA MANAGEMENT STRATEGIES IND USE OF HEAT/ICE TRIAL SUPPORTIVE R WRIST ORTHOSIS [facility]cf Goals: TOLERATE LIGHT IADLs WITH < 3/10 PAIN IND PROGRESSION OF TENNIS ELBOW PROTOCOL UTILIZE ADAPTIVE TECHNIQUES TO DECREASE NUMBNESS/ TINGLING AT NIGHT QUICK DASH SCORE <40% Treatment Plan: Therapeutic Exercise Therapeutic Activity Home Exercise Program Splinting Neuro Re-ed Patient Education Desensitization/Sensory Re-ed Edema Control ADL Training Ultrasound NMES Iontophoresis Paraffin Fluidotherapy MHP Cold Packs Joint Mobilization Soft Tissue Mobilization Kinesiotaping Other (see comments) Electronically Signed By: ADDISON VERDUGO OTR/L Please Sign and return to therapist. Thank you once again for your referral.
--- NOTE | 2024-02-21 15:09 | MHC.OT.DC ---
[address] [phone] F: [phone] Occupational Therapy Discharge Note Patient Name: Venancio Siegel Provider: Suleiman Foreman Diagnosis: B/L HAND PAIN, FOREARM TENDONITIS Date of Evaluation: 01/07/24 Date of Discharge: 02/21/24 Treatments to Date: 9 Cancellations to Date: 0 No Shows to Date: 0 Discharge Status: Achieved Goals Improved Function Independent with HEP Discharge Summary: MR SIEGEL HAS PROGRESSED WELL WITH HIS OT RX SESSIONS. HE DEMO GOOD UNDERSTANDING OF HIS HEP, WELL JOINT PROTECTION STRATEGIES AND USE OF ARTHRITIS GLOVES. Pt HAS MET HIS GOALS AND WILL BE TRANSITIONED TO A HOME BASED EXERCISE PROGRAM. D/C OT SERVICES. Electronically Signed By: ADDISON VERDUGO OTR/Ina Reviewed/agree with student documentation: N/A Therapist: Please Sign and return to therapist, thank you for your referral.
== END 2024-02-21 15:05 | disposition home or self-care (01) ==
LOC: HO.OT 14:30
PROVIDERS: PCP Family Medicine; Visit Provider Family Medicine
DX: M77.8 Other enthesopathies, not elsewhere classified (principal); M79.641 Pain in right hand; M79.642 Pain in left hand
CPT/HCPCS: 29130; 97033; 97035; 97110; 97140; 97166; 97167; 97760

== ENCOUNTER 2024-01-31 15:53 | Outpatient (AMB) | payer BC, SELFPAY ==
--- NOTE | 2024-01-31 16:03 | A.OFFPC_ITS ---
Vital Signs 01/31/24 16:05 Height 5 ft 9 in Weight 202 lb BMI 29.8 BP 140/80 H Blood Pressure Location Lt brachial Position Sitting Respiration 12 Pulse 65 Pulse Source Pulse Oximeter Pulse Oximetry (%) 98 Oxygen Delivery Method Room Air Intake Visit Reasons: Annual PE Intake Note: Patient is here for a physical and he is requesting referrals for dermatology, gastroenterology, urologist, valuation consultant, pain specialist and some one to see for his back- childhood diagnosis for scoliosis. Patient reports he is no longer taking the atorvastatin. He is taking a break from the medication and then in about 2 weeks he will start on Crestor. 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 F/u on hand pain - had given him meloxicam and referred him to hand surgery. No recent labs to review. Follows up with Dr. [employer] for elevated coronary artery calcium score. Pt reports daytime fatigue. PFSH Medical History Celiac disease Chronic musculoskeletal pain Hx of Lyme disease Polyarthralgia Surgical History H/O sinus surgery H/O neck surgery Hx of hernia repair Family History Mother Pancreatic cancer Father No problems noted. Social History Household Members: Spouse and Children Housing: House Alcohol intake: current Alcohol intake frequency: a few times a month Patient Tobacco Use Status: Never used Tobacco e-Cigarette/Vaping Use: Never Used Second Hand Smoke Exposure: No service: No Current occupational status: employed Current occupational exposures/hazards: No Cognitive needs: No Hearing needs: No Vision needs: Yes Questionnaire PHQ-9 Over the last 2 weeks, how often have you been bothered by any of the following problems? 1. Little interest or pleasure in doing things: not at all 2. Feeling down, depressed, or hopeless: not at all 3. Trouble falling or staying asleep, or sleeping too much: not at all 4. Feeling tired or having little energy: not at all 5. Poor appetite or overeating: not at all 6. Feeling bad about yourself - or that you are a failure or have let yourself or your family down: not at all 7. Trouble concentrating on things, such as reading the newspaper or watching television: not at all 8. Moving or speaking so slowly that other people could have noticed. Or the op posite - being so fidgety or restless that you have been moving around a lot more than usual: not at all 9. Thoughts that you would be better off or of hurting yourself in some way: not at all Total score: 0 Depression Screening Interpretation: Negative Depression Screening Done: Yes 08392 - PHQ-9 Billing: Yes Source: Developed by Drs. Anam Campbell, Toni Flores and colleagues, with an educational lin from [employer]. Thrive Questionnaire Date Thrive assessed: 12/17/23 LINDA-7 AMB Questionnaire LINDA-7 Date LINDA - 7 assessed: 12/17/23 Source: Developed by Radha Sweeney Kurt Kroenke and colleagues, with an educational lin from [employer]. Review of Systems Const Denies chills, Denies fatigue, Denies fever(s), Denies headache(s) and Denies weakness Eyes Denies change in vision ENT Denies dizziness, Denies headache(s), Denies hearing loss, Denies nasal congestion, Denies sinus pain, Denies sinus pressure and Denies sore throat Card Denies chest pain, Denies lightheadedness, Denies dyspnea and Denies other (palpitations) Resp Denies cough, Denies dyspnea and Denies wheezing GI Denies abdominal pain, Denies melena, Denies hematochezia, Denies change in bowel habits, Denies dyspepsia and Denies nausea Denies hematuria and Denies dysuria Musc Denies abnormal gait, Denies myalgias, Denies arthralgias, Denies numbness and Denies tingling Skin/Breast Denies rash, Denies unusual bruising and Denies wounds Neuro Denies abnormal gait, Denies dizziness, Denies headache(s), Denies memory loss, Denies numbness, Denies Sensory deficit (Neuro), Denies tingling and Denies weakness Psych Denies anxiety, Denies depression and Denies memory loss Endo Denies cold intolerance, Denies fatigue, Denies heat intolerance, Denies polydipsia and Denies polyuria Ganesh/Lymph Denies easy bleeding and Denies easy bruising Aller/Immun Denies wheezing Physical exam (Primary Care) Vital Signs: Last Vital Signs Pulse 65 01/31/24 16:05 Resp 12 01/31/24 16:05 BP 140/80 H 01/31/24 16:05 Pulse Ox 98 01/31/24 16:05 Oxygen Delivery Method Room Air 01/31/24 16:05 BMI result Body Mass Index 29.8 Tobacco/Smoking Status: Tobacco use Status Tobacco use date assessed 12/17/23 01/31/24 16:04 Patient Tobacco Use Status Never used Tobacco 01/31/24 16:04 e-Cigarette/Vaping Use Never Used 01/31/24 16:04 PHQ-9: PHQ-9 Score PHQ-9: Total score 0 01/31/24 16:21 Depression Screening Interpretation: Negative Thrive Assessment: Date of Thrive Assessment Date Thrive assessed 12/17/23 01/31/24 16:04 Const General: no acute distress, well developed, alert and awake Nutritional Appearance: well nourished Orientation/consciousness: patient oriented x3 HENMT Head: Yes normocephalic and Yes atraumatic Ears: hearing grossly normal bilaterally and TM's normal bilaterally General nose exam: Normal external nose present and Normal nares present Mouth: Normal oral and palatal mucosa present and moist mucous membranes Teeth and gingiva: dentition normal Throat: Yes posterior oropharynx normal Eyes General: appearance normal, both eyes and all related structures Pupils: Equal, round and reactive pupils present and Pupil accommodation reflex normal EOM: EOMs intact bilaterally Neck Neck: Yes normal visual inspection, Yes no lymphadenopathy and Yes trachea midline Thyroid: Thyroid normal Carotids: no bruits Lymphatic: no lymphadenopathy noted Chest Chest palpation & inspection: normal inspection of the chest Resp Effort & Inspection: normal respiratory effort Auscultation: clear to auscultation bilaterally Cardio Rate: regular rate Rhythm: regular rhythm Heart sounds: S1 normal heart sound present, S2 normal heart sound present, no gallops, no murmurs and no rubs Bruits: no abdominal aortic bruits and no carotid bruits GI Palpation (GI): No Abdominal aortic bruit present, Soft to palpation, nontender, No hepatosplenomegaly present and No Rebound tenderness present Auscultation: normal bowel sounds General: Yes no CVA tenderness Back/Spine/Pelvis Back: no CVA tenderness Cervical Spine: cervical ROM normal and No Cervical spine tenderness Thoracic/Lumbar Spine: thoraco-lumbar ROM normal, No pain with thoraco-lumbar ROM, No thoracic spinal tenderness and No lumbar spinal tenderness Skin Lesions: no lesions Rashes: no rashes Trauma: no lacerations or abrasions Wounds: no wounds Nails: normal Neuro General: patient oriented x3 Cranial nerves: Yes Equal, round and reactive pupils present Cognition (Neuro): normal cognition Gait exam (Neuro): Normal gait present Motor exam (neuro): 5/5 motor strength present throughout Sensory Exam: No Sensory deficit (Neuro) Deep tendon reflexes (DTR's): Right patellar reflex intensity grade: 2+ and Left patellar reflex intensity grade: 2+ Extrem General: Yes normal to inspection and No edema Psych Appearance: grossly normal Affect: normal affect Attitude: cooperative Thought process: Normal thought process present Assessment and Plan Assessment & Plan (1) Adult general medical exam: Code(s): Z00.00 - Encounter for general adult medical examination without abnormal findings Plan: 58-year-old?male?presents?for?complete?physical?exam (2) Elevated coronary artery calcium score: Code(s): R93.1 - Abnormal findings on diagnostic imaging of heart and coronary circulation Plan: Followed?by?cardiology.??Stable Recommended?LDL?cholesterol?less?than?70.??See?below (3) Hyperlipidemia: Code(s): E78.5 - Hyperlipidemia, unspecified Plan: As?above,?goal?is?less?than?70?for?LDL?cholesterol. He?was?having?some?trouble?tolerating?atorvastatin?so?this?has?been?switched? to?rosuvastatin?with?Co?Q10 Patient?is?tolerating?this?and?cardiology?has?lipid?panel?ordered?for?February Will?follow?along Encouraged?diet?low?in?saturated?fats?and?cholesterol (4) Back pain: Code(s): M54.9 - Dorsalgia, unspecified Plan: Ongoing?severe?back?pain Follow-up?with?[place]?spin e?and?sport?is?recommended?but?patient?requests?referral?to?Ortho Referral?may (5) Bilateral hand pain: Code(s): M79.641 - Pain in right hand; M79.642 - Pain in left hand Plan: Follow-up?with?hand?surgery?as?recommended (6) Sleep apnea: Code(s): G47.30 - Sleep apnea, unspecified Plan: Referred?to?Sleep?Medicine (7) Screening for colon cancer: Code(s): Z12.11 - Encounter for screening for malignant neoplasm of colon Plan: Colonoscopy?2018. Up-to-date (8) Screening for prostate cancer: Code(s): Z12.5 - Encounter for screening for malignant neoplasm of prostate Plan: Followed?by?Urology Check?PSA Orders: Orders Complete Blood Count Auto Diff Today Z00.00 - Encounter for general adult medical examination without abnormal findings Lipid Panel Today Z00.00 - Encounter for general adult medical examination without abnormal findings Microalbumin, Random (w Creat) Today I10 - Essential (primary) hypertension UA and rflx microscopic Today Z00.00 - Encounter for general adult medical examination without abnormal findings Comprehensive [place]. Panel Fast Today Z00.00 - Encounter for general adult medical examination without abnormal findings Prostate Specific Antigen Scr Today Z12.5 - Encounter for screening for malignant neoplasm of prostate TSH reflex Free T4 Today Z00.00 - Encounter for general adult medical examination without abnormal findings Vitamin B12 and Folate Today E53.8 - Deficiency of other specified B group vitamins Referrals Sleep Medicine Referral G47.30 - Sleep apnea, unspecified Orthopedics Referral M54.9 - Dorsalgia, unspecified Coding Level of Care Code Est Pt Level 3 (86763) Est Pt Prev Care 40-64y(53665) Diagnoses Adult general medical exam Z00.00 Elevated coronary artery calcium score R93.1 Hyperlipidemia E78.5 Back pain M54.9 Bilateral hand pain M79.641; M79.642 Sleep apnea G47.30 Screening for colon cancer Z12.11 Screening for prostate cancer Z12.5
[2024-01-31 16:05] VITALS: BP 140/80; PULSE 65; RESP 12; O2SAT 98; BMI 29.8
== END 2024-01-31 16:44 | disposition home or self-care (01) ==
PROVIDERS: PCP Family Medicine; Visit Provider Family Medicine
DX: Z00.00 Encounter for general adult medical examination without abnormal findings (principal); R93.1 Abnormal findings on diagnostic imaging of heart and coronary circulation; E78.5 Hyperlipidemia, unspecified; M54.9 Dorsalgia, unspecified; M79.641 Pain in right hand; M79.642 Pain in left hand; G47.30 Sleep apnea, unspecified; Z12.11 Encounter for screening for malignant neoplasm of colon; Z12.5 Encounter for screening for malignant neoplasm of prostate
CPT/HCPCS: 99396

== ENCOUNTER 2024-02-01 14:58 | Outpatient (AMB) | payer BC, SELFPAY ==
[2024-02-01 14:59] VITALS: BMI 28.8
--- NOTE | 2024-02-01 14:59 | A.OFFVIS_ITS ---
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 States his right hand is worse. Pain is manly at base of his thumb. Pain is triggered with gripping,pinching and grabbing. Also has a mass/cyst on his volar aspect of wrist. States it has increased in size with in the last 5-6 years. Has numbness and tingling in B/L hands which increase at night and wakes him up from his sleep. No recent EMG study done. He also has pain in all his joints randomly. 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 He complains of pain primarily at the MCP joint of his right thumb & also his right wrist, along with weakness He recalls having had an injury to the MCP joint in the past where it would pop out of place. This appears to have settled down and other than being a little achy it is for the most part useful. With regards to his right wrist he brings it into flexion and says he feels like there is a bone missing He also complains of bilateral hand numbness in all fingers. Symptoms intermittent, but daily, worse at night He also complains of a painful mass on the volar radial aspect of his right wrist, which he says has been present for ~5 years and changes in size. He does say this is not particularly bothersome at this time. He says he caught Lyme disease in ~2004, and went undiagnosed & untreated for several years. He says he developed multiple complaints of joint pain throughout his body due to this. 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 [facility] Medical History (Updated 02/01/24 @ 15:59 by Juancho Stevenson) Celiac disease Chronic musculoskeletal pain Hx of Lyme disease Polyarthralgia Surgical History H/O sinus surgery H/O neck surgery Hx of hernia repair Family History Mother Pancreatic cancer Father No problems noted. Social History (Updated 02/01/24 @ 15:04 by Jessica Celeste 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 Current occupational exposures/hazards: No Cognitive needs: No Hearing needs: No Vision needs: Yes Review of Systems Const All systems reviewed & are unremarkable except as noted in HPI and below Physical Exam Vital Signs: BMI result Body Mass Index 28.8 Const General: cooperative, healthy appearing and no acute distress Orientation/consciousness: patient oriented x3 HEENT Head: Yes normocephalic and Yes atraumatic Eyes EOM: EOMs intact bilaterally Resp Effort & Inspection: normal respiratory effort and able to speak in complete sentences Cardio Jugular venous distension: no JVD Skin General skin exam: turgor normal Rashes: no rashes Neuro General: patient oriented x3 Extrem Other: Evaluation of Upper Extremity: The patient is alert, oriented, and in no acute distress Neuro: Median, Ulnar, Radial nerves motor and sensory intact. Good finger cross and good APB muscle belly firing No thenar wasting. Vascular: Cap refill brisk ROM: He can make a fist and extend all of his digits bilaterally. No locking or catching. Evaluation of his right thumb MCP joint shows good active flexion and extension. His ulnar collateral ligament is intact. Certainly has some laxity of the radial collateral ligament. He says this has been present for some years. He says for a while it used to seem to dislocate but it has not done that for a long time. He says he is actually able to use it quite well. No A1 sivakumar tenderness and no locking or catching of the thumb. Not particularly tender at the basal joint of the thumb or over the 1st dorsal compartment. He does appear to have a right volar wrist ganglion centered ~2-3 cm proximal to the distal wrist crease. It measures about 1.5 cm in diameter, but is not particularly firm. Patient reports it is only painful when it gets bigger. The radial artery is palpable passing beneath the cystic mass. Full and symmetrical wrist prono-supination. Rather full and symmetrical wrist flexion and extension. Regarding the right wrist it has not particularly tender to palpation and the DRUJ is stable. Skin: No lacerations or abrasions. General: No Ecchymosis. No Erythema or evidence of infection. Radiographs: Three views of the right wrist plus a scaphoid view were obtained today and reviewed by me in clinic. I see no fractures or dislocations. No appreciable widening of the scapholunate interval. Early arthritic changes in the basal joint Three views of the right hand with attention to the thumb were also taken today and reviewed by me in clinic: Again I see no fractures or dislocations. He does have some joint space narrowing at the right thumb MCP joint with some ulnar deviation at the MCP joint likely secondary to longstanding insufficiency of the radial collateral ligament. Psych Appearance: grossly normal Affect: normal affect Attitude: cooperative Assessment & Plan Assessment & Plan (1) Bilateral hand numbness: Code(s): R20.0 - Anesthesia of skin (2) Polyarthralgia: Code(s): M25.50 - Pain in unspecified joint (3) Ganglion cyst of volar aspect of right wrist: Code(s): M67.431 - Ganglion, right wrist (4) Pain of right thumb: Code(s): M79.644 - Pain in right finger(s) (5) Right wrist pain: Code(s): M25.531 - Pain in right wrist (6) Hx of Lyme disease: Code(s): Z86.19 - Personal history of other infectious and parasitic diseases Plan Assessment & Plan: 1. Bilateral hand numbness In all digits bilaterally Symptoms intermittent, but daily, worse at night I ordered a bilateral NCS to assess for peripheral nerve compression He will follow up when completed for review. 2. 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 We will manage this conservatively for now 3.Generalized right wrist discomfort Hx of Lyme disease and tends to have generalized achiness in multiple joints secondary to this Full and symmetrical ROM Wrist looks good on radiographs Minimal arthritic changes in the basal joint and perhaps the radioscaphoid joint This will be managed conservatively I reviewed his radiographs with him 4. Right volar wrist ganglion Measuring ~1.5cm in diameter Proximal to the distal wrist crease Not particularly problematic at this time If his symptoms worsen in severity he can follow up to discuss treatment options Please note that greater than 50 minutes was spent with this patient going over the history, evaluating the patient and radiographs, formulating possible treatment options, discussing them with the patient, and documenting the visit. Scribed for Luanne Pierson MD by Juancho Stevenson, medical records administrator, on 02/01/24 at 3:10, EST. Orders: Orders XR hand RT min 3V Today M79.641 - Pain in right hand NE nerve conduction velocity Today R20.0 - Anesthesia of skin, R20.2 - Paresthesia of skin XR wrist RT w scaphoid Today M25.531 - Pain in right wrist Coding Level of Care Code New Pt Level 5 (27730) Diagnoses Bilateral hand numbness R20.0 Polyarthralgia M25.50 Ganglion cyst of volar aspect of right wrist M67.431 Pain of right thumb M79.644 Right wrist pain M25.531 Hx of Lyme disease Z86.19
== END 2024-02-01 16:15 | disposition home or self-care (01) ==
PROVIDERS: PCP Family Medicine; Visit Provider Orthopaedic Surgery
DX: M79.644 Pain in right finger(s) (principal); M67.431 Ganglion, right wrist; R20.0 Anesthesia of skin; Z86.19 Personal history of other infectious and parasitic diseases
CPT/HCPCS: 99205

== ENCOUNTER 2024-02-01 14:58 | Outpatient (REF) | payer BC, SELFPAY ==
--- NOTE | ~2024-02-01 | XR_ITS ---
EXAMINATION: XR HAND, RIGHT XR WRIST, RIGHT CLINICAL INFORMATION: Pain in right hand attention thumb and wrist. COMPARISON: None available. TECHNIQUE: 4 views of the right wrist including scaphoid and 3 views of the right hand. FINDINGS: RIGHT WRIST: Mild degenerative changes with hypertrophic change in the first carpometacarpal joint. Alignment preserved. RIGHT HAND: Moderate degenerative changes in the first metacarpophalangeal joint with moderate hypertrophic change and joint space narrowing. Mild degenerative changes in scattered IP joints of the hand. Visualization of the third, fourth and fifth digits in particular is limited due to overlapping digits. XR/XR wrist RT w scaphoid IMPRESSION: 1. Moderate degenerative changes first metacarpophalangeal joint. 2. Mild degenerative changes first carpometacarpal joint. 3. Recommend follow up imaging in 10-14 days if fracture is suspected.
--- NOTE | ~2024-02-01 | XR_ITS ---
EXAMINATION: XR HAND, RIGHT XR WRIST, RIGHT CLINICAL INFORMATION: Pain in right hand attention thumb and wrist. COMPARISON: None available. TECHNIQUE: 4 views of the right wrist including scaphoid and 3 views of the right hand. FINDINGS: RIGHT WRIST: Mild degenerative changes with hypertrophic change in the first carpometacarpal joint. Alignment preserved. RIGHT HAND: Moderate degenerative changes in the first metacarpophalangeal joint with moderate hypertrophic change and joint space narrowing. Mild degenerative changes in scattered IP joints of the hand. Visualization of the third, fourth and fifth digits in particular is limited due to overlapping digits. XR/XR hand RT min 3V IMPRESSION: 1. Moderate degenerative changes first metacarpophalangeal joint. 2. Mild degenerative changes first carpometacarpal joint. 3. Recommend follow up imaging in 10-14 days if fracture is suspected.
== END 2024-02-01 14:59 | disposition home or self-care (01) ==
LOC: HO.HOSX 14:58
PROVIDERS: PCP Family Medicine; Visit Provider Orthopaedic Surgery
DX: M25.531 Pain in right wrist (principal); M79.641 Pain in right hand; R20.0 Anesthesia of skin; M79.644 Pain in right finger(s); Z86.19 Personal history of other infectious and parasitic diseases
CPT/HCPCS: 73110; 73130

== ENCOUNTER 2024-02-29 08:16 | Outpatient (REF) | payer BC, SELFPAY ==
--- NOTE | 2024-02-29 08:23 | EMG_ITS ---
Bilateral median and ulnar motor and sensory studies were performed. Bilateral superficial radial and median and lateral antecubital brachial sensory studies were performed and paraspinal muscles were tested with a needle. IMPRESSION: 1. Mypv-as-cqidyqta bilateral median neuropathy across carpal tunnel. 2. Mild bilateral ulnar neuropathy across cubital tunnel. MD SEGUNDO Gardner/ADELE / [id number]
== END 2024-02-29 08:17 | disposition home or self-care (01) ==
LOC: HO.NEURO 08:16
PROVIDERS: PCP Family Medicine; Visit Provider Orthopaedic Surgery
DX: R20.0 Anesthesia of skin (principal); R20.2 Paresthesia of skin
CPT/HCPCS: 95886; 95913

== ENCOUNTER 2024-03-08 08:01 | Outpatient (AMB) | payer BC, SELFPAY ==
--- NOTE | 2024-03-08 08:03 | A.OFFVIS_ITS ---
Vital Signs 03/08/24 08:04 Height 5 ft 9 in Weight 200 lb BMI 29.5 BP 124/82 Blood Pressure Location Rt brachial Position Sitting Pulse 65 Pulse Source Pulse Oximeter Pulse Oximetry (%) 98 Oxygen Delivery Method Room Air Intake Visit Reasons: (lvm+let 01/31)INP-Sleep apnea, unspecified-Conf Intake Note: Patient presents for sleep apnea. Allergies acetaminophen [Percocet] Allergy (Unknown, Verified 03/08/24 08:06) NAUSEA/TINGLING FACE oxycodone [Percocet] Allergy (Unknown, Verified 03/08/24 08:06) NAUSEA/TINGLING FACE penicillin V Allergy (Unknown, Verified 03/08/24 08:06) DIARRHEA Sulfa (Sulfonamide Antibiotics) Allergy (Unknown, Verified 03/08/24 08:06) rash Sulfacet-R Allergy (Unknown, Uncoded 03/08/24 08:06) rash Medication List - Last Reconciled 03/08/24 by SELENA Soto atorvastatin 10 mg PO DAILY 90 days baclofen 10 mg PO BID PRN celecoxib 200 mg PO BID PRN 90 days coQ10 (ubiquinol) (Qunol Wolf CoQ10) 100 mg PO DAILY meloxicam 15 mg PO DAILY 30 days omeprazole 40 mg PO DAILY rosuvastatin (Crestor) 5 mg PO DAILY tadalafil 10 mg PO DAILY PRN testosterone 2 pumps topical DAILY tramadol 50 mg PO BID PRN HPI Comments Details: 58-yr-old male presents for new in-person patient visit for sleep consultation. Pt reports that he has not slept well for years. He has difficulty getting comfortable, tosses and turns, arms can go numb. Has a h/o neck surgery. Had a recent BUE EMG/NCS, which showed: [id number] bilateral median neuropathy across carpal tunnel. Mild bilateral ulnar neuropathy across cubital tunnel. Pt has recently seen Dr Pierson, ortho, for similair s/s. Also endorses: Memory is not as good as before. H/o Lyme dz. H/o celiac dz- identified during GERD work-up. Sleep questionnaire: Have you ever been diagnosed with a sleep disorder? No Have you ever had a sleep study in the past? No Have you ever been treated for a sleep disorder? No Do you take medications for a sleep disorder? No Do you snore? Yes Do you wake up gasping at night? Yes Do you have episodes of apneas? His has told him Do you have episodes of nocturnal chest pain or dyspnea? Not recently Do you have difficulty initiating sleep? Yes Do you have difficulty maintaining sleep? Yes Do you wake up tired? Yes Do you have headaches upon awakening? Nothing that a coffee won't take care of Do you wake up with dry mouth or throat? Yes Do you have GERD? Yes- has a hiatal hernia Do you have daytime tiredness or fatigue? Yes Do you have nocturnal leg cramps? No Do you have symptoms of restless legs? Denies restlessness. Has h/o creepy crawling sensation s/p Lyme dz. Do you act out your dreams? May yell in his sleep at times. Sleep hygiene questionnaire: What is your usual sleep routine? Usual bedtime is at 10:30pm; Usual wake-up time is at 5:30am. Do you take naps? May nap if inactive, even in the morning at work. Is your sleep environment cool, dark, and quiet? Yes Do you exercise? Wt training and cardio 4 x's per week Do you take caffeine or other stimulants? 8-10 oz in the am. Do you use electronics in bed? 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 Hypersomnolence questionnaire: Do you easily fall asleep when inactive? at times Have you ever had episodes of sudden weakness? Finds himself dropping things more. Have you ever had episodes of sudden weakness associated with strong emotions? Unsure. [facility] Medical History (Updated 03/08/24 @ 08:54 by SELENA Soto) Celiac disease Chronic musculoskeletal pain Hx of Lyme disease Polyarthralgia Surgical History H/O sinus surgery H/O neck surgery Hx of hernia repair Family History Mother Pancreatic cancer Father No problems noted. 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 Current occupational exposures/hazards: No Cognitive needs: No Hearing needs: No Vision needs: Yes Review of Systems Const All systems reviewed & are unremarkable except as noted in HPI and below Physical Exam Vital Signs: Last Vital Signs Pulse 65 03/08/24 08:04 BP 124/82 03/08/24 08:04 Pulse Ox 98 03/08/24 08:04 Oxygen Delivery Method Room Air 03/08/24 08:04 BMI result Body Mass Index 29.5 Const General: no acute distress Orientation/consciousness: patient oriented x3 HEENT Other: Mallampati st IV Resp Effort & Inspection: able to speak in complete sentences Neuro Other: RUE positive phalen. General: patient oriented x3 and deep tendon reflexes 2+ bilaterally Cranial nerves: Yes CN's II-XII intact bilaterally Gait exam (Neuro): Normal gait present Motor exam (neuro): 5/5 motor strength present throughout Psych Mental Status: mental status grossly normal Speech and movement: Clear speech present Attitude: cooperative Telehealth Telehealth Location of provider rendering services: practice address Location of patient: address on file Patient Identification confirmed using: Name, : Yes Telehealth method: voice only Patient verbally consented to treatment: Yes Patient verbally consented to billing insurance company: Yes Patient informed of any privacy concerns related to visit: Yes Assessment & Plan Assessment & Plan (1) Difficulty sleeping: Code(s): G47.9 - Sleep disorder, unspecified Category: Medical (2) Excessive daytime sleepiness: Code(s): G47.19 - Other hypersomnia Category: Medical (3) Restless sleeper: Code(s): G47.9 - Sleep disorder, unspecified Category: Medical (4) Snoring: Code(s): R06.83 - Snoring Category: Medical (5) Bilateral carpal tunnel syndrome: Code(s): G56.03 - Carpal tunnel syndrome, bilateral upper limbs Category: Medical (6) Ulnar neuropathy of both upper extremities: Code(s): G56.23 - Lesion of ulnar nerve, bilateral upper limbs Category: Medical Plan Pt advised to undergo in-lab PSG to assess for sleep apnea and PLMS. Check labs for common etiologies of restless sleep, especially in setting of celiac dz. Trial OTC BUE carpal tunnel splints. Pt advised to f/u w/ Dr Pierson on BUE mild-mod carpal tunnel and BUE mild ulnar neuropathy. Pt seen in collaboration w/ Dr Pedroza. F/u upon review of above and in clinic in 6 months. Orders: Orders Complete Blood Count Auto Diff Today G56.03 - Carpal tunnel syndrome, bilateral upper limbs, G56.23 - Lesion of ulnar nerve, bilateral upper limbs, K90.0 - Celiac disease, M25.50 - Pain in unspecified joint, R53.83 - Other fatigue Homocysteine Today G56.03 - Carpal tunnel syndrome, bilateral upper limbs, G56.23 - Lesion of ulnar nerve, bilateral upper limbs, K90.0 - Celiac disease, M25.50 - Pain in unspecified joint, R53.83 - Other fatigue Erythrocyte Sedimentation Rate Today G56.03 - Carpal tunnel syndrome, bilateral upper limbs, G56.23 - Lesion of ulnar nerve, bilateral upper limbs, K90.0 - Celiac disease, M25.50 - Pain in unspecified joint, R53.83 - Other fatigue RT PSG in-lab sleep study Today G47.19 - Other hypersomnia, G47.9 - Sleep disorder, unspecified, R06.83 - Snoring Comprehensive Met. Panel Today G56.03 - Carpal tunnel syndrome, bilateral upper limbs, G56.23 - Lesion of ulnar nerve, bilateral upper limbs, K90.0 - Celiac disease, M25.50 - Pain in unspecified joint, R53.83 - Other fatigue IRON PROFILE Today G56.03 - Carpal tunnel syndrome, bilateral upper limbs, G56.23 - Lesion of ulnar nerve, bilateral upper limbs, K90.0 - Celiac disease, M 25.50 - Pain in unspecified joint, R53.83 - Other fatigue Ferritin Today G56.03 - Carpal tunnel syndrome, bilateral upper limbs, G56.23 - Lesion of ulnar nerve, bilateral upper limbs, K90.0 - Celiac disease, M25.50 - Pain in unspecified joint, R53.83 - Other fatigue Vitamin B12 and Folate Today G56.03 - Carpal tunnel syndrome, bilateral upper l imbs, G56.23 - Lesion of ulnar nerve, bilateral upper limbs, K90.0 - Celiac disease, M25.50 - Pain in unspecified joint, R53.83 - Other fatigue Methylmalonic Acid Today G56.03 - Carpal tunnel syndrome, bilateral upper limbs, G56.23 - Lesion of ulnar nerve, bilateral upper limbs, K90.0 - Celiac disease, M25.50 - Pain in unspecified joint, R53.83 - Other fatigue CRP High Sensitivity Today G56.03 - Carpal tunnel syndrome, bilateral upper limbs, G56.23 - Lesion of ulnar nerve, bilateral upper limbs, K90.0 - Celiac disease, M25.50 - Pain in unspecified joint, R53.83 - Other fatigue Coding Level of Care Code New Pt Level 4 (84666) Diagnoses Difficulty sleeping G47.9 Excessive daytime sleepiness G47.19 Restless sleeper G47.9 Snoring R06.83 Bilateral carpal tunnel syndrome G56.03 Ulnar neuropathy of both upper extremities G56.23 [place] Sleepiness Scale Questions Sitting and reading: moderate chance of dozing Watching TV: moderate chance of dozing Sitting inactive in a theater, movie etc.: moderate chance of dozing As a passenger in a car for an hour without break: would never doze Lying down in the afternoon when circumstances permit: moderate chance of dozing Sitting and talking to someone: would never doze Sitting quietly after lunch without alcohol: moderate chance of dozing In a car, while stopped for a few minutes in the traffic: would never doze ESS < 10: normal, ESS > 12: pathologic: 10
[2024-03-08 08:04] VITALS: BP 124/82; PULSE 65; O2SAT 98; BMI 29.5
== END 2024-03-08 08:56 | disposition home or self-care (01) ==
PROVIDERS: PCP Family Medicine; Referring Provider Family Medicine; Visit Provider Nurse Practitioner Family
DX: G47.9 Sleep disorder, unspecified (principal); G47.19 Other hypersomnia; R06.83 Snoring; G56.03 Carpal tunnel syndrome, bilateral upper limbs; G56.23 Lesion of ulnar nerve, bilateral upper limbs
CPT/HCPCS: 99204

== ENCOUNTER 2024-03-08 08:58 | Outpatient (REF) | payer BC, SELFPAY ==
[2024-03-08 17:03] LABS: MANUAL DIFF FLAG NO
[2024-03-08 17:20] LABS: Basophils Percent Auto 0.6 % (0-2); Eosinophils Absolute Auto 0.3 X10*3/uL (0.0-0.4); Eosinophils Percent Auto 4.9 % (0-4); Hematocrit 44.6 % (42.0-52.0); Hemoglobin 16.1 g/dl (14.0-18.0); Imm Gran Abs Auto 0.01 X10*3/uL (0.00-0.03); Imm Gran Pct Auto 0.2 % (0.0-0.4); Lymphocytes Absolute Auto 1.7 X10*3/uL (1.2-4.9); Lymphocytes Percent Auto 32.8 % (20-40); Mean Corpuscular HGB Conc 36.1 g/dl (31.0-36.0); Mean Corpuscular Hemoglobin 31.5 pg (27.0-33.0); Mean Corpuscular Volume 87.3 fL (80.0-98.0); Mean Platelet Volume 11.6 fL (9.4-12.4); Monocytes Absolute Auto 0.7 X10*3/uL (0.1-1.2); Monocytes Percent Auto 14.4 % (2-11); Neutrophils Absolute Auto 2.4 x10*3/uL (2.0-8.3); Neutrophils Percent Auto 47.1 % (45-73); Platelet Count 169 X10*3/uL (160-400); Red Blood Count 5.11 X10*6/uL (4.60-5.80); Red Cell Distribution Width 12.9 % (11.0-16.0); White Blood Count 5.1 X10*3/uL (4.8-10.8)
[2024-03-08 17:45] LABS: Alanine Aminotransferase 29 U/L (0-40); Albumin Level 4.4 g/dL (3.5-5.0); Alkaline Phosphatase 58 U/L (39-117); Anion Gap 11 (12-20); Aspartate Amino Transferase 27 U/L (5-37); Bilirubin Total 0.5 mg/dL (0.0-1.0); Blood Urea Nitrogen 18 mg/dL (9-16); Calcium 9.6 mg/dL (8.4-10.2); Carbon Dioxide 26 mmol/L (22-29); Chloride 105 mmol/L (96-108); Estimated Glomerular Filt Rate > 60; Glucose Random 92 mg/dL (60-115); Iron 117 mcg/dL (45-160); Percent Iron Saturation 43 % (15-50); Potassium 4.4 mmol/L (3.3-5.1); Sodium 138 mmol/L (135-145); Total Iron Binding Capacity 273 mcg/dL (228-428); Total Protein 8.2 g/dL (6.5-8.0); Unsaturated Iron Binding 156 ug/dL
[2024-03-08 17:49] LABS: Erythrocyte Sedimentation Rate 3 MM/HR (0-15)
[2024-03-08 18:02] LABS: Ferritin 197 ng/mL (20-250)
[2024-03-08 18:09] LABS: Folate 11.5 ng/mL (> or = 4.0); Vitamin B12 772 pg/mL (200-900)
[2024-03-09 17:52] LABS: CRP High Sensitivity 0.8 mg/L
[2024-03-09 18:43] LABS: Homocysteine 10.9 umol/L (<11.4)
[2024-03-12 20:59] LABS: Methylmalonic Acid 82 nmol/L (87-318)
== END 2024-03-08 08:59 | disposition home or self-care (01) ==
LOC: HO.HKASLDS 08:58
PROVIDERS: Visit Provider Nurse Practitioner Family
DX: K90.0 Celiac disease (principal); G56.03 Carpal tunnel syndrome, bilateral upper limbs; G56.23 Lesion of ulnar nerve, bilateral upper limbs; M25.50 Pain in unspecified joint; R53.83 Other fatigue
CPT/HCPCS: 36415; 80053; 82607; 82728; 82746; 83090; 83540; 83921; 85025; 85652; 86141

== ENCOUNTER 2024-04-26 12:03 | Outpatient (AMB) | payer BC, SELFPAY ==
--- NOTE | 2024-04-26 12:10 | AM.OFFWIN_ITS ---
Intake Vital Signs 04/26/24 12:11 Height 5 ft 9 in BP 130/80 Blood Pressure Location Rt brachial Position Sitting Pulse 74 Temp 98.1 F Temp Source Oral Pulse Oximetry (%) 98 Intake Visit Reasons: EP piece of steel in thumb/Tdap Intake Note: pt is here for a peice of steel in thumb yesterday, it was removed. patient requesting tdap Patient Tobacco Use Status: Never used Tobacco Allergies acetaminophen [Percocet] Allergy (Unknown, Verified 04/26/24 12:13) NAUSEA/TINGLING FACE oxycodone [Percocet] Allergy (Unknown, Verified 04/26/24 12:13) NAUSEA/TINGLING FACE penicillin V Allergy (Unknown, Verified 04/26/24 12:13) DIARRHEA Sulfa (Sulfonamide Antibiotics) Allergy (Unknown, Verified 04/26/24 12:13) rash Sulfacet-R Allergy (Unknown, Uncoded 03/08/24 08:06) rash Do you need a note to return to daycare/school/sports/work: No HPI HPI Comments 2 History of Present Illness Details Patient is a 58-year-old male with no significant past medical history comes in after getting a piece of steel stuck in his right thumb, along the nail bed. He states he was doing some yd work and there was still send surrounding the shed and he was trying to remove it when part of it got stuck in his thumb, he states the piece came out hole and he is sure there is nothing stuck in there. It bled a little bit but has since stopped and he has minimal pain. He is unsure of his last tetanus vaccination. He states he can move his thumb as normal previous to the injury. [facility] Medical History (Updated 04/26/24 @ 12:19 by Krysta Rascon PA-C) Celiac disease Chronic musculoskeletal pain Hx of Lyme disease Polyarthralgia Surgical History H/O sinus surgery H/O neck surgery Hx of hernia repair Family History Mother Pancreatic cancer Father No problems noted. 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 Current occupational exposures/hazards: No Cognitive needs: No Hearing needs: No Vision needs: Yes Review of Systems Const All systems reviewed & are unremarkable except as noted in HPI and below Physical Exam Vital Signs: Last Vital Signs Temp 98.1 F 04/26/24 12:11 Pulse 74 04/26/24 12:11 BP 130/80 04/26/24 12:11 Pulse Ox 98 04/26/24 12:11 Const General: cooperative, healthy appearing, comfortable, no acute distress and well developed Orientation/consciousness: patient oriented x3 Limitations: no limitations HEENT Head: Yes normal to inspection Eyes General: appearance normal, both eyes and all related structures Neck Neck: Yes normal visual inspection and Yes full ROM Resp Effort & Inspection: normal respiratory effort and able to speak in complete sentences Neuro General: patient oriented x3 Extrem Right upper extremity: Extremity exam: right hand (pinpoint area of blood dried on lateral thumb nail, full range of motion) Details: normal capillary refill, neuromotor exam normal, tendon exam normal and tenderness (slight on area of inj ury) Location: of the thumb; no unusual warmth, no swelling, swelling, no abrasions and no ecchymosis Assessment & Plan Assessment & Plan (1) Injury of thumb, right: Code(s): S69.91XA - Unspecified injury of right wrist, hand and finger(s), initial encounter Qualifiers: Encounter type: initial encounter Qualified Code(s): S69.91XA - Unspecified injury of right wrist, hand and finger(s), initial encounter Plan: Tetanus given in office today. Advised keep clean and dry until healed, may apply vaseline/Aquaphor ointment if needed for healing. Plan see above Orders: Orders TDaP Immunization 04/26/24 Z23 - Encounter for immunization Coding Level of Care Code Est Pt Level 3 (33265) Diagnoses Injury of right thumb, initial encounter S69.91XA Encounter type: initial encounter
[2024-04-26 12:11] VITALS: BP 130/80; PULSE 74; TEMP 36.7; O2SAT 98
== END 2024-04-26 12:50 | disposition home or self-care (01) ==
PROVIDERS: PCP Family Medicine; Visit Provider Physician Assistant
DX: Z23 Encounter for immunization (principal)
CPT/HCPCS: 90471; 90715; 99213

== ENCOUNTER → 2024-04-26 13:00 | Outpatient (BNV) | payer BC, SELFPAY | PROVIDERS: PCP Family Medicine; Visit Provider Psychiatry & Neurology Neurology | DX: G47.33 Obstructive sleep apnea (adult) (pediatric) (principal) | CPT/HCPCS: 95806 ==

== ENCOUNTER → 2024-04-26 13:01 | Outpatient (REF) | payer BC, SELFPAY | LOC: HO.SL 13:01 | PROVIDERS: PCP Family Medicine; Visit Provider Nurse Practitioner Family | DX: R06.83 Snoring (principal); G47.19 Other hypersomnia; R53.83 Other fatigue | CPT/HCPCS: 95806 ==

== ENCOUNTER 2024-05-03 08:30 | Outpatient (AMB) | payer BC, SELFPAY ==
--- NOTE | 2024-05-03 08:34 | A.OFFVIS_ITS ---
Vital Signs 05/03/24 08:35 Height 5 ft 9 in Weight 195 lb BMI 28.8 Handedness Right Intake Visit Reasons: O/V EMG review Intake Note: Venancio 58 year old right hand dominant male presents today for his EMG review of bilateral hands. Patient reports right hand is slightly worse than his left hand. He expresses he has been on and off numbness and tingling for about 5 to 10 years. He expresses it worsens at night and causes him to wake out of his sleep. States he is open to discuss surgical intervention if it is necessary. He would like to started with right hand first. Allergies acetaminophen [Percocet] Allergy (Unknown, Verified 05/03/24 08:38) NAUSEA/TINGLING FACE oxycodone [Percocet] Allergy (Unknown, Verified 05/03/24 08:38) NAUSEA/TINGLING FACE penicillin V Allergy (Unknown, Verified 05/03/24 08:38) DIARRHEA Sulfa (Sulfonamide Antibiotics) Allergy (Unknown, Verified 05/03/24 08:38) rash Sulfacet-R Allergy (Unknown, Uncoded 05/03/24 08:38) rash HPI HPI O/V EMG review: Details: Venancio is a 58 year old right hand dominant man who returns for a NCS review of his bilateral hand numbness He continues to complain of bilateral hand numbness in all fingers. Symptoms intermittent throughout the week, worse at night, though will occur daily with certain activities such as prolonged use of his phone. He says his right hand is worse. He would like to discuss treatment options, but is unsure if he wants to discuss surgery at this time. He says his work is busier in the summertime, and he has household projects he would like to get done. He had a piece of metal embedded in his right thumb nailbed while doing yard work DOI: 04/25/24. This was removed at a walk-in clinic on 04/26/24, and was given a tetanus shot. He has no complaints about his nailbed injury today. He says he caught Lyme disease in ~2003, and went undiagnosed & untreated for several years. He says he developed multiple complaints of joint pain throughout his body due to this. 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 [facility] Medical History Celiac disease Chronic musculoskeletal pain Hx of Lyme disease Polyarthralgia Surgical History H/O sinus surgery H/O neck surgery Hx of hernia repair Family History Mother Pancreatic cancer Father No problems noted. 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 Current occupational exposures/hazards: No Cognitive needs: No Hearing needs: No Vision needs: Yes Physical Exam Vital Signs: BMI result Body Mass Index 28.8 Extrem Other: Evaluation of Bilateral Upper Extremity: The patient is alert, oriented, and in no acute distress Neuro: Median, Ulnar, Radial nerves motor and sensory intact and sensation is normal to the tips of all digits today in clinic No thenar or intrinsic wasting Good APB muscle belly firing and good finger cross Vascular: Cap refill brisk ROM: He can make a fist and extend all of his digits bilaterally. No locking or catching. He does appear to have a right volar wrist ganglion centered ~2-3 cm proximal to the distal wrist crease. It measures ~1.5cm in diameter, but is not particularly firm. no complaints today. The radial artery is palpable passing beneath the cystic mass. Nerve Conduction study: IMPRESSION: 1. [id number] bilateral median neuropathy across carpal tunnel. 2. Mild bilateral ulnar neuropathy across cubital tunnel. Nolvia Ny MD 02/29/2024 Assessment & Plan Assessment & Plan (1) Bilateral carpal tunnel syndrome: Code(s): G56.03 - Carpal tunnel syndrome, bilateral upper limbs Category: Medical (2) Ulnar neuropathy of both upper extremities: Code(s): G56.23 - Lesion of ulnar nerve, bilateral upper limbs Category: Medical (3) Polyarthralgia: Code(s): M25.50 - Pain in unspecified joint Category: Medical (4) Ganglion cyst of volar aspect of right wrist: Code(s): M67.431 - Ganglion, right wrist Category: Medical (5) Pain of right thumb: Code(s): M79.644 - Pain in right finger(s) Category: Medical (6) Right wrist pain: Code(s): M25.531 - Pain in right wrist Category: Medical (7) Hx of Lyme disease: Code(s): Z86.19 - Personal history of other infectious and parasitic diseases Category: Medical Plan Assessment & Plan: 1. Right carpal tunnel syndrome, mild-moderate Symptoms intermittent, but daily with activity, worse at night 2. Right cubital tunnel syndrome, mild Symptoms intermittent, but daily with activity, worse at nigh 3. Left carpal tunnel syndrome, mild-moderate Symptoms intermittent, but daily with activity, worse at nigh 4. Left cubital tunnel syndrome, mild Symptoms intermittent, but daily with activity, worse at night I educated him about this condition I discussed operative and non-operative treatment options The patient would like to proceed with surgery, beginning with the right side. He would like to delay surgery at this time as he is busy with work & household projects. He would like to have this done sometime in the fall/winter He will take this time to be mindful of how frequently his small fingers may go numb. He will follow up in 3 months to see how he is doing and discuss treatment options. 5. 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 We will manage this conservatively for now 6. Generalized right wrist discomfort Hx of Lyme disease and tends to have generalized achiness in multiple joints secondary to this Full and symmetrical ROM Wrist looks good on radiographs Minimal arthritic changes in the basal joint and perhaps the radioscaphoid joint This will be managed conservatively 7. Right volar wrist ganglion Measuring ~1.5cm in diameter Proximal to the distal wrist crease Not particularly problematic at this time If his symptoms worsen in severity he can follow up to discuss treatment options Scribed for Luanne Pierson MD by Juancho Stevenson senior medical transcriptionist, on 05/03/24 at 8:50 AM, EST. Coding Level of Care Code Est Pt Level 4 (52234) Diagnoses Bilateral carpal tunnel syndrome G56.03 Ulnar neuropathy of both upper extremities G56.23 Polyarthralgia M25.50 Ganglion cyst of volar aspect of right wrist M67.431 Pain of right thumb M79.644 Right wrist pain M25.531 Hx of Lyme disease Z86.19
[2024-05-03 08:35] VITALS: BMI 28.8
== END 2024-05-03 09:09 | disposition home or self-care (01) ==
PROVIDERS: PCP Family Medicine; Visit Provider Orthopaedic Surgery
DX: G56.03 Carpal tunnel syndrome, bilateral upper limbs (principal); G56.23 Lesion of ulnar nerve, bilateral upper limbs; M67.431 Ganglion, right wrist; M79.644 Pain in right finger(s); Z86.19 Personal history of other infectious and parasitic diseases
CPT/HCPCS: 99214

== ENCOUNTER → 2024-05-03 08:30 | Outpatient (BNVA) | payer BC, SELFPAY | PROVIDERS: PCP Family Medicine; Visit Provider Orthopaedic Surgery ==

== ENCOUNTER 2024-12-29 16:26 | Outpatient (AMB) | payer BC, SELFPAY ==
--- NOTE | 2024-12-29 16:31 | A.OFFPC_ITS ---
Vital Signs 12/29/24 16:40 Height 5 ft 8 in Weight 195 lb BMI 29.6 BP 116/70 Blood Pressure Location Lt brachial Position Sitting Respiration 14 Pulse 76 Pulse Source Pulse Oximeter Temp 98.1 F Temp Source Oral Pulse Oximetry (%) 95 Oxygen Delivery Method Room Air Intake Visit Reasons: Allergy and referrals F/U Intake Note: hernia x2 umbilica and inguial ganglion cystright hand iliac crest lytic lesion Allergies acetaminophen [Percocet] Allergy (Unknown, Verified 12/29/24 16:34) NAUSEA/TINGLING FACE oxycodone [Percocet] Allergy (Unknown, Verified 12/29/24 16:34) NAUSEA/TINGLING FACE penicillin V Allergy (Unknown, Verified 12/29/24 16:34) DIARRHEA Sulfa (Sulfonamide Antibiotics) Allergy (Unknown, Verified 12/29/24 16:34) rash Sulfacet-R Allergy (Unknown, Uncoded 05/03/24 08:38) rash Tobacco use date assessed: 12/17/23 Dental Screening Dental Screen Date: 06/01/23 HPI Allergy and referrals F/U HPI Details 59 y/o male presents to f/u chronic cond itions. Recent imaging showed incidental lytic lesion at pelvic crest. Incidental cysts also seen from CT scan. Has complaints of hernias with severe pain. [facility] Medical History Celiac disease Chronic musculoskeletal pain Hx of Lyme disease Polyarthralgia Surgical History H/O sinus surgery H/O neck surgery Hx of hernia repair Family History Mother Pancreatic cancer Father No problems noted. 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 Current occupational exposures/hazards: No Cognitive needs: No Hearing needs: No Vision needs: Yes Questionnaire Thrive Questionnaire Date Thrive assessed: 12/27/24 I am a: Patient What is your living situation today?: I have a steady place to live Within the past 12 months, did the food you bought not last and you didn't have the money to get more?: Never true Within the past 12 months, did you worry whether your food would run out before you got money to buy more?: Never true Do you have trouble paying for medicines?: No Do you have trouble getting transportation to medical appointments?: No Do you have trouble paying your heating and electricity bill?: No Do you have trouble taking care of your child, family member or friend?: No Do you have trouble with day-to-day activities such as bathing, preparing meals, shopping, managing finances, etc.?: No Are you currently unemployed and looking for a job?: No Are you interested in more education?: No THRIVE Score: 0 LINDA-7 AMB Questionnaire LINDA-7 Date LINDA - 7 assessed: 12/17/23 Source: Developed by Drs. Anam Campbell, Radha Nava, Toni Arana and colleagues, with an educational lin from [employer]. Review of Systems Const Denies chills, Denies fatigue, Denies fever(s), Denies headache(s) and Denies weakness ENT Denies dizziness and Denies headache(s) Card Denies dyspnea Resp Denies cough, Denies dyspnea, Denies wheezing and Denies other (shortness of breath) Musc Denies numbness and Denies tingling Neuro Denies dizziness, Denies headache(s), Denies numbness, Denies tingling and Denies weakness Psych Denies anxiety and Denies depression Endo Denies fatigue Aller/Immun Denies wheezing Physical exam (Primary Care) Vital Signs: Last Vital Signs Temp 98.1 F 12/29/24 16:40 Pulse 76 12/29/24 16:40 Resp 14 12/29/24 16:40 BP 116/70 12/29/24 16:40 Pulse Ox 95 12/29/24 16:40 Oxygen Delivery Method Room Air 12/29/24 16:40 BMI result Body Mass Index 29.6 Tobacco/Smoking Status: Tobacco use Status Tobacco use date assessed 12/17/23 12/29/24 16:31 Patient Tobacco Use Status Never used Tobacco 12/29/24 16:31 e-Cigarette/Vaping Use Never Used 12/29/24 16:31 Thrive Assessment: Date of Thrive Assessment Date Thrive assessed 12/27/24 12/29/24 16:31 Const General: well developed; No acute distress Nutritional Appearance: well nourished Orientation/consciousness: patient oriented x3 HENMT Head: Yes normocephalic and Yes atraumatic Eyes General: appearance normal, both eyes and all related structures Pupils: Equal, round and reactive pupils present EOM: EOMs intact bilaterally Resp Effort & Inspection: normal respiratory effort Neuro General: patient oriented x3 and gait normal Cranial nerves: Yes Equal, round and reactive pupils present Psych Affect: normal affect Coding Level of Care Code Est Pt Level 4 (55351) Diagnoses Lytic lesion of bone on x-ray M89.8X9 Elevated liver enzymes R74.8 Liver cyst K76.89 Hernia K46.9 Lipoma D17.9 Assessment & Plan Assessment & Plan (1) Lytic lesion of bone on x-ray: Code(s): M89.8X9 - Other specified disorders of bone, unspecified site Category: Medical Plan: Recent?imaging?showed?incidental?lytic?lesion?at?pelvic?crest. Will?check?x-ray?and?follow-up?patient?to?determine?next?steps He?has?no?prior?history?of?malignancy - we?discussed?likely?benign?rule?out?neoplasm (2) Elevated liver enzymes: Code(s): R74.8 - Abnormal levels of other serum enzymes Category: Medical Plan: Incidental?cysts?seen?CT?scan Check?ultrasound?liver (3) Liver cyst: Code(s): K76.89 - Other specified diseases of liver Category: Medical Plan: As?above,?check (4) Hernia: Code(s): K46.9 - Unspecified abdominal hernia without obstruction or gangrene Category: Medical Plan: Hernias?with?severe?pain Referred?to?[facility]?general?surgery?at?patient?request (5) Lipoma: Code(s): D17.9 - Benign lipomatous neoplasm, unspecified Category: Medical Plan: Likely?lipoma?verses?possible?ganglion?cyst?right?hand/wrist Soft?and?fluctuant?rather?firm.??More?likely?a?lipoma Referred?him?back?Dermatology Orders: Orders 2 XR pelvis min 3V Today M89.8X9 - Other specified disorders of bone, unspecified site US abdomen limited Today K76.89 - Other specified diseases of liver, R74.8 - Abnormal levels of other serum enzymes Referrals General Surgery Referral K46.9 - Unspecified abdominal hernia without obstruct ion or gangrene Dermatology Referral D17.9 - Benign lipomatous neoplasm, unspecified Medications: New valacyclovir 500 mg PO DAILY 30 days 30 tabs 3RF
[2024-12-29 16:40] VITALS: BP 116/70; PULSE 76; RESP 14; TEMP 36.7; O2SAT 95; BMI 29.6
== END 2024-12-29 17:10 | disposition home or self-care (01) ==
PROVIDERS: PCP Family Medicine; Visit Provider Family Medicine
DX: M89.8X9 Other specified disorders of bone, unspecified site (principal); R74.8 Abnormal levels of other serum enzymes; K76.89 Other specified diseases of liver; K46.9 Unspecified abdominal hernia without obstruction or gangrene; D17.9 Benign lipomatous neoplasm, unspecified

== ENCOUNTER 2025-01-03 15:00 | Outpatient (REF) | payer BC, SELFPAY ==
--- NOTE | ~2025-01-03 | XR_ITS ---
CLINICAL HISTORY: M89.8X9 - Other specified disorders of bone, unspecified site 4 view pelvis Comparison: None Findings: No acute fracture or dislocation. Periarticular osteophyte formation at the bilateral hip joints. Soft tissues are unremarkable. IMPRESSION: 1. No acute findings. This document has been electronically signed by: Carlos Manuel Younger MD on 01/03/2025 18:39:35
== END 2025-01-03 15:01 | disposition home or self-care (01) ==
LOC: HO.XRAY 15:00
PROVIDERS: PCP Family Medicine; Visit Provider Family Medicine
DX: M89.8X8 Other specified disorders of bone, other site (principal)
CPT/HCPCS: 72190

== ENCOUNTER → 2025-01-03 15:04 | Outpatient (BNV) | payer BC, SELFPAY | PROVIDERS: PCP Family Medicine; Visit Provider Radiology Diagnostic Radiology | DX: M89.8X9 Other specified disorders of bone, unspecified site (principal) | CPT/HCPCS: 72190 ==

== ENCOUNTER 2025-02-05 07:45 | Outpatient (REF) | payer BC, SELFPAY ==
--- NOTE | ~2025-02-05 | US_ITS ---
CLINICAL HISTORY: K76.89 - Other specified diseases of liver US abdomen limited with color Doppler Comparison: None Findings: Midline structures including the pancreaswere obscured by bowel gas Liver is normal in size and echotexture. Right lobe length 16.3 cm. Septated cyst right lobe measuring 2.2 x 2.4 x 2.3 cm can be correlated with contrast-enhanced MRI. Common duct 5.0 mm diameter. Gallbladder is physiologically distended. No gallstones demonstrated. Less than 2 mm gallbladder polyp is present. No gallbladder wall thickening. No pericholecystic fluid. No sonographic Benitez sign. Main portal vein antegrade. Right kidney measures, 12.0 cm in length. Normal cortical width and echotexture. No hydronephrosis calculus or mass. Impression: 1. Bowel gas obscures midline structures. 2. Septated cyst right lobe of the liver can be correlated with contrast-enhanced MRI. 3. No gallstones demonstrated. 2 mm gallbladder polyps can undergo six-month follow-up. This document has been electronically signed by: Hill Richardson MD on 02/05/2025 09:01:16
== END 2025-02-05 07:46 | disposition home or self-care (01) ==
LOC: HO.US 07:45
PROVIDERS: PCP Family Medicine; Visit Provider Family Medicine
DX: K76.89 Other specified diseases of liver (principal); R74.8 Abnormal levels of other serum enzymes
CPT/HCPCS: 76705

== ENCOUNTER → 2025-02-05 07:46 | Outpatient (BNV) | payer BC, SELFPAY | PROVIDERS: PCP Family Medicine; Visit Provider Radiology Diagnostic Radiology | DX: K76.89 Other specified diseases of liver (principal) | CPT/HCPCS: 76705 ==

== ENCOUNTER 2025-02-07 15:24 | Outpatient (AMB) | payer BC, SELFPAY ==
--- NOTE | 2025-02-07 15:44 | MHC.PC.OV ---
Vital Signs 02/07/25 15:50 Height 5 ft 8 in Weight 204 lb 2 oz BMI 31.0 BP 120/70 Blood Pressure Location Rt brachial Position Sitting Respiration 14 Pulse 68 Pulse Source Pulse Oximeter Temp 99.1 F Temp Source Oral Pulse Oximetry (%) 97 Oxygen Delivery Method Room Air Intake Visit Reasons: f/u chronic conditions Intake Note: patient is scheduled to go over radiology reports Choreography Director Required: No Allergies acetaminophen [Percocet] Allergy (Unknown, Verified 02/07/25 15:47) NAUSEA/TINGLING FACE oxycodone [Percocet] Allergy (Unknown, Verified 02/07/25 15:47) NAUSEA/TINGLING FACE penicillin V Allergy (Unknown, Verified 02/07/25 15:47) DIARRHEA Sulfa (Sulfonamide Antibiotics) Allergy (Unknown, Verified 02/07/25 15:47) rash Sulfacet-R Allergy (Unknown, Uncoded 05/03/24 08:38) rash Tobacco use date assessed: 12/17/23 Dental Screening Dental Screen Date: 06/01/23 HPI f/u chronic conditions HPI Details 59 y/o male presents to f/u chronic conditions. Checking pelvic x-ray of lytic lesion. Checking ultrasound of liver due to incidental findings of liver cysts. Referred him to General surgery and make sure has an appointment. Referred him back to Dermatology [facility] Medical History Celiac disease Chronic musculoskeletal pain Hx of Lyme disease Polyarthralgia Surgical History H/O sinus surgery H/O neck surgery Hx of hernia repair Family History Mother Pancreatic cancer Father No problems noted. 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 Current occupational exposures/hazards: No Cognitive needs: No Hearing needs: No Vision needs: Yes Questionnaire PHQ-9 Over the last 2 weeks, how often have you been bothered by any of the following problems? 1. Little interest or pleasure in doing things: not at all 2. Feeling down, depressed, or hopeless: not at all 3. Trouble falling or staying asleep, or sleeping too much: not at all 4. Feeling tired or having little energy: not at all 5. Poor appetite or overeating: not at all 6. Feeling bad about yourself - or that you are a failure or have let yourself or your family down: not at all 7. Trouble concentrating on things, such as reading the newspaper or watching television: not at all 8. Moving or speaking so slowly that other people could have noticed. Or the opposite - being so fidgety or restless that you have been moving around a lot more than usual: not at all 9. Thoughts that you would be better off or of hurting yourself in some way: not at all Total score: 0 Depression Screening Interpretation: Negative Depression Screening Done: Yes 18788 - PHQ-9 Billing: Yes Source: Developed by Drs. Anam Campbell, Radha Nava, Toni Arana and colleagues, with an educational lin from [employer]. Thrive Questionnaire Date Thrive assessed: 02/07/25 I am a: Patient What is your living situation today?: I have a steady place to live Within the past 12 months, did the food you bought not last and you didn't have the money to get more?: Never true Within the past 12 months, did you worry whether your food would run out before you got money to buy more?: Never true Do you have trouble paying for medicines?: No Do you have trouble getting transportation to medical appointments?: No Do you have trouble paying your heating and electricity bill?: No Do you have trouble taking care of your child, family member or friend?: No Do you have trouble with day-to-day activities such as bathing, preparing meals, shopping, managing finances, etc.?: No Are you currently unemployed and looking for a job?: No Are you interested in more education?: No Please select the resources that you would like help with: None Currently or been in a relationship where the following occur: No concerns reported THRIVE Score: 0 AUDIT C Alcohol Use Questionnaire (AUDIT-C) 1. How often do you have a drink containing alcohol?: Monthly or less 2. How many drinks containing alcohol do you have on a typical day when you are drinking?: 1 or 2 3. How often do you have six or more drinks on one occasion?: Never Total Score: 1 Score Reviewed/Action Taken: Yes LINDA-7 AMB Questionnaire LINDA-7 Date LINDA - 7 assessed: 02/07/25 Feeling nervous, anxious, or on edge: 0 = Not at all Not being able to stop or control worryin = Not at all Worrying too much about different things: 0 = Not at all Trouble relaxin = Not at all Being so restless that it is hard to sit still: 0 = Not at all Becoming easily annoyed or irritable: 0 = Not at all Feeling afraid as if something awful might happen: 0 = Not at all Total LINDA-7 score (0-4 normal; 5-9 mild; 10-14 moderate; 15-21 severe): 0 Source: Developed by Drs. Anam Campbell, Radah Nava, Toni Arana and colleagues, with an educational lin from [employer]. LINDA-7 Assessment Billing LINDA-7 Assessment Tool: LINDA-7 Assessment 21064 Review of Systems Const Denies chills, Denies fatigue, Denies fever(s), Denies headache(s) and Denies weakness ENT Denies dizziness and Denies headache(s) Card Denies dyspnea Resp Denies cough, Denies dyspnea, Denies wheezing and Denies other (shortness of breath) Musc Denies numbness and Denies tingling Neuro Denies dizziness, Denies headache(s), Denies numbness, Denies tingling and Denies weakness Psych Denies anxiety and Denies depression Endo Denies fatigue Aller/Immun Denies wheezing Physical exam (Primary Care) Vital Signs: Last Vital Signs Temp 99.1 F 02/07/25 15:50 Pulse 68 02/07/25 15:50 Resp 14 02/07/25 15:50 BP 120/70 02/07/25 15:50 Pulse Ox 97 02/07/25 15:50 Oxygen Delivery Method Room Air 02/07/25 15:50 BMI result Body Mass Index 31.0 Tobacco/Smoking Status: Tobacco use Status Tobacco use date assessed 12/17/23 02/07/25 15:45 Patient Tobacco Use Status Never used Tobacco 02/07/25 15:45 e-Cigarette/Vaping Use Never Used 02/07/25 15:45 PHQ-9: PHQ-9 Score PHQ-9: Total score 0 02/07/25 16:04 Depression Screening Interpretation: Negative Thrive Assessment: Date of Thrive Assessment Date Thrive assessed 02/07/25 02/07/25 15:53 Currently or been in a relationship where the following occur: No concerns reported Const General: well developed; No acute distress Nutritional Appearance: well nourished Orientation/consciousness: patient oriented x3 HENMT Head: Yes normocephalic and Yes atraumatic Eyes General: appearance normal, both eyes and all related structures Pupils: Equal, round and reactive pupils present EOM: EOMs intact bilaterally Resp Effort & Inspection: normal respiratory effort Neuro General: patient oriented x3 and gait normal Cranial nerves: Yes Equal, round and reactive pupils present Psych Affect: normal affect Coding Level of Care Code Est Pt Level 3 (19286) Diagnoses Liver cyst K76.89 Gall bladder polyp K82.4 Lytic lesion of bone on x-ray M89.8X9 Hernia K46.9 Additional Codes LINDA-7 Assessment Billing - LINDA-7 Assessment Tool: LINDA-7 Assessment 09268 ([id number]) PHQ-9 - 56153 - PHQ-9 Billing: Yes ([id number]) Assessment & Plan Assessment & Plan (1) Liver cyst: Code(s): K76.89 - Other specified diseases of liver Category: Medical Plan: Ultrasound?shows?that?liver?cysts?are?septated?and?about?2?x?2?x?2 Will?check?MRI?to?rule?out?malignancy (2) Gall bladder polyp: Code(s): K82.4 - Cholesterolosis of gallbladder Category: Medical Plan: Gallbladder?polyps?seen?on?ultrasound Recommended?six-month?follow-up However,?patient?has?septated?liver?cysts?for?which?I?checking?an?MRI. Will?review?MRI?imaging?of?polyps?with?patient?as?well. We?discussed?still?may?need?a?six-month?follow-up?to?evaluate?growth/changes. (3) Lytic lesion of bone on x-ray: Code(s): M89.8X9 - Other specified disorders of bone, unspecified site Category: Medical Plan: Lytic?lesion?of?bone?seen?incidentally?on?imaging?and?plain?x-ray?was?negative. 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
[2025-02-07 15:50] VITALS: BP 120/70; PULSE 68; RESP 14; TEMP 37.3; O2SAT 97; BMI 31.0
--- OUTSIDE RECORDS SUMMARY | 2025-02-07 18:29 | XMS_ITS | Clinical Summary ---
Author Organization 175 [facility] Address [address] [place] [address] Phone Care Team Providers Care Piece Work Checker Name Role Phone Suleiman Foreman MD Primary Care Provider Allergies Active Allergy Reactions Criticality Noted Date Comments Clarithromycin Diarrhea,Nausea And Vomiting 12/24/2021 Latex Rash 01/12/2025 Oxycodone-Acetaminophen 01/12/2025 Penicillins Diarrhea,Nausea And Vomiting 12/24/2021 Sulfa (Sulfonamide Antibiotics) 12/24/2021 Other Reaction(s): Rash/Dermatitis Medications traMADoL (ULTRAM) 50 mg tablet Take 1 tablet (50 mg total) by mouth every 6 (six) hours if needed. Max Daily Amount: 200 mg Active baclofen (LIORESAL) 10 mg tablet Take 1 tablet (10 mg total) by mouth 3 (three) times a day. Active diclofenac (VOLTAREN) 75 mg EC tablet Take 1 tablet (75 mg total) by mouth 1 (one) time each day. Active atorvastatin (LIPITOR) 10 mg tablet Take 1 tablet (10 mg total) by mouth 1 (one) time each day. Active rosuvastatin (CRESTOR) 5 mg tablet Take 1 tablet (5 mg total) by mouth 1 (one) time each day. 10/22/2024 Active meloxicam (MOBIC) 15 mg tablet 01/09/2025 Active Active Problems Problem Noted Date Diagnosed Date Unilateral recurrent inguina l hernia without obstruction or gangrene 01/11/2025 Low back pain 12/24/2021 Overview (01/08/2025): Last Assessment & Plan: Patient had a flareup in September of low and middle back pain, a few episodes of numbness in his penis, now resolved. He still experiences left low back pain with certain activities, cannot roughhouse with his children anymore. Subjectively he feels the legs b/l are weak, his knees have pain x2 years. He denies bowel bladder incontinence, saddle anesthesia, erectile dysfunction. He has had previous PT for his neck, no recent PT for his low back. He tries to stay active and exercise, but can no longer run. He also describes a chronic history of back and neck pain (10-30 years), previous neck surgery right C6-7 posterior decompression 04/17/[address] Wilson. He had a neck injury about 3 years ago and was seeing Dr. Gagnon under Worker's Comp., chronic Lyme's disease (15 years) with multiple joints involved with pain. Dr. Bradshaw is his MD for Lyme's disease. Patient's MRI lumbar and thoracic spine 09/22/2021 at [facility] shows minimal degenerative changes, mild left foraminal L4-5 disc bulging, no significant foraminal or central stenosis at any level. He does not recall where his last C-spine MRI was done, will call us when he gets home and looks at the disc. I did review an old C-spine MRI at [facility] 02/24/13 that showed mild disc bulging at C5-6, C6-7, C3-4, no stenosis or signal change noted in the spinal cord. I reviewed patient's MRI images with him in detail.we discussed conservative treatment options including ground PT, aquatic PT, acupuncture to help his acute and chronic pain. At this time he wants to do core strengthening exercises on his own, plans to stay active and exercise. He may consider acupuncture in the future. He is not interested in trying cortisone injections. I will review his most recent C-spine MRI after he provides the location. All questions answered. I asked him to call for follow-up appointment if he has persistent or worsening symptoms. I will review his films with Dr. Wu. Total time spent 45 minutes, in reviewing history, exam, films, plan. Encounters Date Type Department Care Team Description 01/19/2025 Telephone General Surgery - [address] [place] [phone] Obdulio Kim MD prior auth (02/15/2025 Dr. Kim) 01/11/2025 2:30 PM EST Consult General Surgery - [address] [place] [address] Obdulio Kim MD Unilateral recurrent inguinal hernia without obstruction or gangrene from Last 3 Months Immunizations Name Administration Dates Next Due Influenza Quadravalent, MDCK , 0.5ml, preservative free (Flucelvax) 6mo and older 08/11/2017 Influenza Quadravalent, MDCK , 0.5ml, with preservative (Flucelvax) 6mo and older 08/09/2019 Influenza trivalent, 0.5mL, preservative free (Fluarix; FluLaval; Fluzone) ages 6mo and older (Afluria) 3 years and older 08/20/2016,08/12/2015 Influenza trivalent, with pr eservative (Fluzone; Afluria) 6mo and older 08/08/2018,09/07/2012 Surgical History Surgery Date Site/Laterality Comments SINUS SURGERY 2006 PROCEDURE: DE UNLISTED PROCEDURE ACCESSORY SINUSES; COMMENT: polyp removed OTHER SURGICAL HISTORY 04/17/2016 PROCEDURE: HISTORY OTHER; COMMENT: Right C6-7 posterior decompression, Dr. Wilson HERNIA REPAIR Medical History Medical History Date Comments Mixed hyperlipidemia DX:Mixed hy perlipidemia Osteoarthritis DX:Osteoarthriti s Lyme disease 2006 DX:Lyme disease Social History Tobacco Use Types Packs/Day Years Used Date Smoking Tobacco: Never Tobacco Cessation:Counseling Given: Not Answered Alcohol Use Standard Drinks/Week Comments Not Currently 0 (1 standard drink = 0.6 oz pur e alcohol) Sex and Gender Information Value Date Recorded Sex Assigned at Not on file Legal Sex Male 3:59 PM EST Gender Identity Not on file Sexual Orientation Not on file Obstetrics History Last Filed Vital Signs Vital Sign Reading Time Taken Comments Blood Pressure 157/89 01/11/2025 2:43 PM EST Pulse 65 01/11/2025 2:43 PM EST Temperature 36.5 ??C (97.7 ??F) 01/11/2025 2:43 PM ES T Respiratory Rate - - Oxygen Saturation - - Inhaled Oxygen Concentration - - Weight 93.4 kg (206 lb) 01/11/2025 2:43 PM EST Height 172.7 cm (5' 8 ) 01/11/2025 2:43 PM EST Body Mass Index 31.32 01/11/2025 2:43 PM EST Plan of Treatment Upcoming Encounters Date Type Department Care Team (Latest Contact Info) Description 02/15/2025 2:00 PM EDT Hospital Encounter [facility] Main OR [address] [place] [phone] Obdulio Kim MD [address] [address] 02/15/2025 2:00 PM EDT - 02/15/2025 4:00 PM EDT Surgery [facility] Main OR [address] [place] [phone] Obdulio Kim MD [address] [address] DAVINCI REPAIR RECURRENT RIGHT INGUINAL HERNIA W/MESH [[id number] (CPT??)] 03/06/2025 9:45 AM EDT Office Visit General Surgery - [place] [address] [phone] Obdulio Kim MD [address] [address] Scheduled Procedures Name Priority Associated Diagnoses Date/Ti me REPAIR HERNIA INGUINAL ROBOT Unilateral recurrent inguinal hernia without obstruction or gangrene 02/15/2025 2:00 PM EDT Health Maintenance Due Date Last Done Comments Hepatitis B Vaccines (1 of 3 - 19+ 3-dose series) 1986 Pneumococcal Vaccine: 50+ Years (1 of 1 - PCV) 2017 Cholesterol Screening (Lipid Panel) 10/14/2022 Colorectal Cancer Screening: Colonoscopy 10/14/2022 Depression Screening 10/14/2022 HIV Screening 10/14/2022 Hepatitis C Screening 10/14/2022 Social Influencers of Health Screening 10/14/2022 Zoster Vaccines (2 of 2) 02/15/2023 12/21/2022 COVID-19 Vaccine ( season) 2024 09/13/2022, 10/05/2021, 03/12/2021, Additional history exists DTaP,Tdap,and Td Vaccines (2 - Td or Tdap) 04/26/2034 04/26/2024 Influenza Vaccine Completed 09/04/2024, , 09/13/2022, Additional history exists HIB Vaccines Aged Out No longer eligi ble based on patient's age to complete this topic HPV Vaccines Aged Out No longer eligi ble based on patient's age to complete this topic Hepatitis A Vaccines Aged Out No long er eligible based on patient's age to complete this topic IPV Vaccines Aged Out No longer eligi ble based on patient's age to complete this topic MMR Vaccines Aged Out No longer eligi ble based on patient's age to complete this topic Meningococcal ACWY Vaccine Aged Out N o longer eligible based on patient's age to complete this topic Meningococcal B Vacine Aged Out No lo nger eligible based on patient's age to complete this topic Pneumococcal Vaccine: Pediatrics (0 to 5 Years) and At-Risk Patients (6 to 64 Years) Aged Out No longer eligible based on patient's age to complete this topic RSV Immunization Patients Under 20 months Aged Out No longer eligible based on patient's age to complete this topic Varicella Vaccines Aged Out No longer eligible based on patient's age to complete this topic Insurance [facility] Care Teams Piece Work Checker Relationship Specialty Start Date End Date Suleiman Foreman MD [address] [place] [address] PCP - General Family Medicine 01/05/25
--- OUTSIDE RECORDS SUMMARY | 2025-02-07 18:29 | XMS_ITS | Encounter Summary ---
Author Organization [facility] Address [address] [place] [address] Care Team Providers Care Silvering Applicator Name Role Phone Suleiman Foreman MD Primary Care Provider [phone] Reason for Visit * Reason Onset Date Comments prior auth 01/19/2025 02/15/2025 Dr. Nolvia king Encounter Details Date Type Department Care Team ([facility] Contact Info) Description 01/19/2025 Telephone General Surgery - [place] 175 [facility] [address] [place] [phone] Obdulio Kim MD 175 [facility] [address] [place] [id number] prior auth (02/15/2025 Dr. Kim) Social History Tobacco Use Types Packs/Day Years Used Date Smoking Tobacco: Never Alcohol Use Standard Drinks/Week Comments Not Currently 0 (1 standard drink = 0.6 oz pur e alcohol) Sex and Gender Information Value Date Recorded Sex Assigned at Not on file Legal Sex Male 3:59 PM EST Gender Identity Not on file Sexual Orientation Not on file documented as of this encounter Progress Notes * Sriram Gilmore - 01/19/2025 11:54 AM EST 02/15/2025 Per [place] [id number] documented in this encounter Plan of Treatment Upcoming Encounters Date Type Department Care Team (Latest Contact Info) Description 02/15/2025 2:00 PM EDT Hospital Encounter [facility] Main OR [address] [place] [phone] Obdulio Kim MD [address] [address] 02/15/2025 2:00 PM EDT - 02/15/2025 4:00 PM EDT Surgery [facility] Main OR [address] [place] [address] Obdulio Kim MD [address] [address] DAVINCI REPAIR RECURRENT RIGHT INGUINAL HERNIA W/MESH [[id number] (CPT??)] 03/06/2025 9:45 AM EDT Office Visit General Surgery [facility] [address] [phone] Obdulio Kim MD [address] [address] Scheduled Procedures Name Priority Associated Diagnoses Date/Ti wy REPAIR HERNIA INGUINAL ROBOT Unilateral recurrent inguinal hernia without obstruction or gangrene 02/15/2025 2:00 PM EDT documented as of this encounter Visit Diagnoses Not on filedocumented in this encounter Care Teams Silvering Applicator Relationship Specialty Start Date End Date Suleiman Foreman MD [address] [place] [address] PCP - General Family Medicine 01/05/25 documented as of this encounter
--- OUTSIDE RECORDS SUMMARY | 2025-02-07 18:29 | XMS_ITS | Encounter Summary ---
Author Organization [facility] Address [address] [place] [address] Care Team Providers Care Field Horticultural Specialty Grower Name Role Phone Suleiman Foreman MD Primary Care Provider [phone] Reason for Visit * Reason Comments Advice Only Abdominal hernia * Consultation (Routine) - Authorized Specialty Diagnoses / Procedures Referred By Conthellen t Referred To Contact General Surgery Diagnoses Abdominal hernia without obstruction and without gangrene, recurrence not specified, unspecified hernia type Suleiman Foreman MD [address] [place] [address] Phone: tel: fax: General Surgery - [address] [address] Phone: tel: fax: Referral ID Status Reason Start Date Expiration Date Visits Requested Visits Authorized [id number] Authorized Specialty Services Required 01/10/2025 01/10/2026 6 6 Encounter Details Date Type Department Care Team ([facility] Contact Info) Description 01/11/2025 2:30 PM EST Consult General Surgery - [address] [address] Obdulio Kim MD [address] [place] [id number] Unilateral recurrent inguinal hernia without obstruction or gangrene Social History Tobacco Use Types Packs/Day Years [...] on file documented as of this encounter Last Filed Vital Signs Vital Sign Reading [...] Mass Index 31.32 01/11/2025 2:43 PM EST documented in this encounter Progress Notes * Obdulio Kim MD - 01/11/2025 2:30 PM EST Referring MD:Suleiman Foreman MD Venancio Siegel is a 59 y.o. year old male who presents for outpatient consultation regarding the management of inguinal hernia. The history is a bit disjointed; I believe although he has been aware of bulging in the groin for some time, the actual diagnosis was made incidentally when he had a CT scan for other reasons. I do not have that imaging. He gives a history of inguinal herniorrhaphy in childhood, which he believes was also on his right side, and required a 3-day inpatient hospital stay. There has been no sign of bowel involvement. In terms of risk factors for hernia he probably has some mild prostatism, denies chronic constipation, has a very physical job, non-smoker, does occasionallywork out with weights. No other abdominal operations. He does note that his father recently had a very large inguinal hernia repaired and he does not want to get to that same point. Also, it seems that I have repaired a couple of hernias on one of his neighbors. Finally, he has chronic back pain, more on the right, and may have a lytic lesion of the bony pelvis which is still under investigation. ROS: GENERAL: No malaise, significant weight loss or fever HEENT: No changes in hearing or vision, nose bleeds NECK: No lumps, goiter, pain or significant neck swelling RESPIRATORY: No cough, wheezing or shortness of breath CARDIOVASCULAR: No chest pain, leg swelling or palpitations GI: No persistent abdominal discomfort, blood in stools or black stools : No dysuria, frequency or incontinence MUSCULOSKELETAL: As above SKIN: No lesions, rash or itching PAST MEDICAL HISTORY: Patient Active Problem List Diagnosis Date Noted Low back pain 12/24/2021 Dyslipidemia PAST SURGICAL HISTORY: Past Surgical History: Procedure Laterality Date HERNIA REPAIR OTHER SURGICAL HISTORY 04/17/2016 PROCEDURE: HISTORY OTHER; COMMENT: Right C6-7 posterior decompression, Dr. Wilson SINUS SURGERY 2006 PROCEDURE: MD UNLISTED PROCEDURE ACCESSORY SINUSES; COMMENT: polyp removed SOCIAL HISTORY: Social History Tobacco Use Smoking status: Never Smokeless tobacco: Not on file Substance Use Topics Alcohol use: Not Currently FAMILY HISTORY: No family history on file. No family status information on file. ACTIVE MEDICATIONS: Outpatient Medications Marked as Taking for the 01/11/25 encounter (Consult) with Obdulio Kim MD Medication Sig Dispense Refill meloxicam (MOBIC) 15 mg tablet rosuvastatin (CRESTOR) 5 mg tablet Take 1 tablet (5 mg total) by mouth 1 (one) time each day. ALLERGIES: Allergies Allergen Reactions Clarithromycin Diarrhea and Nausea And Vomiting Penicillins Diarrhea and Nausea And Vomiting Sulfa (Sulfonamide Antibiotics) Other Reaction(s): Rash/Dermatitis PHYSICAL EXAM: Visit Vitals BP (!) 157/89 (BP Location: Right arm, Patient Position: Sitting, BP Cuff Size: Large adult) Pulse 65 Temp 36.5 ??C (97.7 ??F) (Temporal) Ht 1.727 m (68 ) Wt 93.4 kg (206 lb) BMI 31.32 kg/m?? Smoking Status Never BSA 2.07 m?? Pleasant well nourished , well developed middle-aged white male in no acute distress. His sclera are non-icteric. His pupils are round. His extraocular muscles are grossly intact. His lungs are clear. His heart has a regular rate and rhythm. There is no suspicious cervical adenopathy. There is no obvious neck mass. His abdomen is non-tender, protuberant, tiny fat-containing congenital umbilical hernia which is nontender. Modest easily reducible right inguinal hernia, no contralateral defect felt. There is no apparent organomegaly. His skin is warm without obvious cancers or lesions in the limited area seen. There is no peripheral edema. His neurologic exam is grossly normal. He is alert and oriented to time and place and reason for this consultation. LABS: No results found for: WBC , HGB , HCT , MCV No results found for: NA , K , CO2 , CL , BUN , GLU , ALB , ALKPHOS , TP IMAGING: As above; neither films nor report available for me to review today IMPRESSION: 1. Unilateral recurrent inguinal hernia without obstruction or gangrene Plan: After some discussion, we will proceed with a robotic repair of his right inguinal hernia at some point over the next month or so at [facility]. Follow-up 2 weeks later at follow-up as well. He will need to avoid the heavy lifting at work for at least the first couple of weeks back. Informed consent was obtained for repair of an inguinal hernia. The risks include, but are not limited to, recurrence, bleeding, injury to hernia contents, infection of mesh requiring further treatment or removal, recurrence of the hernia, injury to other groin structures, persistent discomfort, injury to testicular blood supply for male patients, and so forth. The patient's questions were answered to the best of my ability. Medication and lab orders: No orders of the defined types were placed in this encounter. Other orders: documented in this encounter Plan of Treatment Upcoming Encounters Date Type Department Care Team (Latest Contact Info) Description 02/15/2025 2:00 PM EDT Hospital Encounter [facility] OR [address] [place] [phone] Obudlio Kim MD [address] [address] 02/15/2025 2:00 PM EDT - 02/15/2025 4:00 PM EDT Surgery [facility] OR [address] [place] [phone] Obdulio Kim MD [address] [address] DAVINCI REPAIR RECURRENT RIGHT INGUINAL HERNIA W/MESH [[id number] (CPT??)] 03/06/2025 9:45 AM EDT Office Visit General Surgery - [place] 175 [facility] [address] [place] [phone] Obdulio Kim MD 175 [facility] [address] [place] [address] Scheduled Procedures Name Priority Associated Diagnoses Date/Ti me REPAIR HERNIA INGUINAL ROBOT Unilateral recurrent inguinal hernia without obstruction or gangrene 02/15/2025 2:00 PM EDT documented as of this encounter Visit Diagnoses Diagnosis Unilateral recurrent inguinal hernia without obstruction or gangrene Unilateral recurrent inguinal hernia without obstruction or gangrene- Primary Unilateral recurrent inguinal hernia without obstruction or gangrene documented in this encounter Historical Medications * This list may reflect changes made after this encounter. meloxicam (MOBIC) 15 mg tablet 01/09/2025 rosuvastatin (CRESTOR) 5 mg tablet Take 1 tablet (5 mg total) by mouth 1 (one) time each day. 10/22/2024 added in this encounter Orders Outpatient Referral Count Last Ordered Date Fir st Ordered Date AMB REFERRAL TO GENERAL SURGERY 1 Case Request Count Last Ordered Date First Orde red Date CASE REQUEST OPERATING ROOM 1 01/11/2025 documented in this encounter Care Teams Field Horticultural Specialty Grower Relationship Specialty Start Date End Date Suleiman Foreman MD [address] [place] [phone] PCP - General Family Medicine 01/05/25 documented as of this encounter
== END 2025-02-07 16:19 | disposition home or self-care (01) ==
LOC: HO.HMCFM 15:25
PROVIDERS: PCP Family Medicine; Visit Provider Family Medicine
DX: K76.89 Other specified diseases of liver (principal); K82.4 Cholesterolosis of gallbladder; M89.8X9 Other specified disorders of bone, unspecified site; K46.9 Unspecified abdominal hernia without obstruction or gangrene

== ENCOUNTER → 2025-02-07 15:24 | Outpatient (BNVA) | payer BC, SELFPAY | PROVIDERS: PCP Family Medicine; Visit Provider Family Medicine | DX: K76.89 Other specified diseases of liver (principal); K82.4 Cholesterolosis of gallbladder; M89.8X9 Other specified disorders of bone, unspecified site; K22.70 Barrett's esophagus without dysplasia; K44.9 Diaphragmatic hernia without obstruction or gangrene | CPT/HCPCS: 96127 ==

== ENCOUNTER 2025-03-27 15:46 | Outpatient (REF) | payer BC, SELFPAY ==
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
--- OUTSIDE RECORDS SUMMARY | 2025-03-27 16:28 | XMS_ITS | Encounter Summary ---
Author Organization [facility] Address [address] [place] [address] Care Team Providers Care Vehicle And Equipment Cleaner Name Role Phone Suleiman Foreman MD Primary Care Provider [phone] Reason for Visit * Auth/Cert (Routine) Specialty Diagnoses / Procedures Referred By Caleb t Referred To Contact Diagnoses Unilateral recurrent inguinal hernia without obstruction or gangrene Recurrent right inguinal hernia K40.91 Procedures [place] LAP SURG REPR RECURRENT INGUINAL HERNIA DAVINCI REPAIR RECURRENT RIGHT INGUINAL HERNIA W/MESH Obdulio Kim MD [address] [address] Phone: tel: fax: [facility] OR [address] [place] [phone] Phone: tel: Referral ID Status Reason Start Date Expiration Date Visits Re quested Visits Authorized [id number] 1 1 Encounter Details Date Type Department Care Team (Late st Contact Info) Description 03/22/2025 12:00 PM EDT - 03/22/2025 2:00 PM EDT Surgery [facility] OR [address] [place] [phone] Obdulio Kim MD [address] [address] DAVINCI REPAIR RECURRENT RIGHT INGUINAL HERNIA W/ MESH [[id number] (CPT??)] Surgery Details Date/Time Status Location OR Service Patient Class Case Cl ass Case Type Trauma Case? 03/22/2025 12:00 PM Posted [facility] OR [address] [place] [address] Outpatient Surgery F - Elective Panel 1 Procedure LRB Anes Op Region Wound Class Comments DAVINCI REPAIR RECURRENT RIG HT INGUINAL HERNIA W/ MESH Right general Abdomen Class I/ Clean Surgeon Surgeon Role Service Panel Obdulio Kim MD Primary General 1 Special Needs Robotic repair recurrent right inguinal hernia w/mesh asking 90 minutes for this case documented in this encounter Social History Tobacco Use Types Packs/Day Years [...] Sign Reading Time Taken Comments Blood Pressure 133/94 03/22/2025 10:56 AM EDT Pulse 64 03/22/2025 10:56 AM EDT Temperature 36.6 ??C (97.9 ??F) 03/22/2025 10:56 AM E DT Respiratory Rate 16 03/22/2025 10:56 AM EDT Oxygen Saturation 99% 03/22/2025 10:56 AM EDT Inhaled Oxygen Concentration - - Weight 88.5 kg (195 lb) 03/22/2025 10:55 AM EDT Height 172.7 cm (5' 7.99 ) 03/22/2025 10:55 AM E DT Body Mass Index 29.66 03/22/2025 10:55 AM EDT documented in this encounter Discharge Instructions * Discharge Instructions* Obdulio Kim MD - 03/22/2025 2:20 PM EDT After your laparoscopic inguinal hernia repair: Activity: Walking, stairs are fine. No lifting greater than 30 pounds until seen in office. Diet: Whatever you like-no restrictions. Incision care: Remove Band-Aids in 24 hours. Leave the white stickers on your skin until they fall off on their own. Bathing: You may shower in 24 hours. Quick shower, pat dry. Do not soak in a tub, pool, martin etc. until seen in office. Pain management: In general terms, unless you have a medical condition that prevents it, we recommend using ibuprofen or Aleve (dose according to package instructions) folkhi-keg-upmuy, and reserve the prescription narcotic for breakthrough pain. Ice to the groin where the hernia was and to the incisions every couple of hours will also help with pain and bruising. General Instructions: Do not drive while using prescription pain medication. Do not drive or operate heavy machinery until your discomfort is much better and you are comfortable. If the pain medicine makes you constipated, do not strain to move your bowels; treat constipationaggressively with any cbnw-eph-oprhhlc agents such as milk of magnesia. Call the office at [phone] if you develop fever greater than 101F or significant spreading redness around one of your incisions. Please be aware, a little bit of redness at the cuts is normal and does not indicate infection. * Attachments The following attachments cannot be sent through Care Everywhere. * Hernia Repair: Post-op (Slovenian) * General Anesthesia (Slovenian) documented in this encounter Medications at Time of Discharge HYDROcodone-acet aminophen (NORCO) 5-325 mg per tablet Take 1 tablet by mouth every 6 (six) hours if needed for moderate pain for up to 5 days. Max Daily Amount: 4 tablets 12 tablet 03/22/2025 03/27/2025 meloxicam (MOBIC) 15 mg tablet 01/09/2025 rosuvastatin (CRESTOR) 5 mg tablet Take 1 tablet (5 mg total) by mouth 1 (one) time each day. 10/22/2024 documented as of this encounter Ordered Prescriptions Prescription Sig Dispense Quantity Refills Last Filled Start Date End Date HYDROcodone-acetam inophen (NORCO) 5-325 mg per tablet Take 1 tablet by mouth every 6 (six) hours if needed for moderate pain for up to 5 days. Max Daily Amount: 4 tablets 12 tablet 03/22/2025 5 documented in this encounter Discharge Disposition Disposition Code Departure Means Destination Comment s Home or Self Care Wheelchair Home documented in this encounter H&P Notes * Obdulio Kim MD - 03/22/2025 12:22 PM EDT Progress Notes Obdulio Kim MD (Physician) General Surgery Expand All Collapse All Referring MD:Suleiman Foreman MD Venancio Siegel is [...] back pain 12/24/2021 Dyslipidemia PAST SURGICAL HISTORY: Surgical History Past Surgical History: Procedure Laterality Date HERNIA REPAIR OTHER SURGICAL HISTORY 04/17/2016 PROCEDURE: HISTORY OTHER; COMMENT: Right C6-7 posterior decompression, Dr. Wilson SINUS SURGERY 2006 PROCEDURE: [place] UNLISTED PROCEDURE ACCESSORY SINUSES; COMMENT: polyp removed SOCIAL HISTORY: Social History Tobacco Use Smoking status: Never Smokeless tobacco: Not on file Substance Use Topics Alcohol use: Not Currently FAMILY HISTORY: Family History No family history on file. No family status information on file. ACTIVE MEDICATIONS: Medications Taking Outpatient Medications Marked as Taking for the 01/11/25 encounter (Consult) with Obdulio Kim MD Medication Sig Dispense Refill meloxicam (MOBIC) 15 mg tablet rosuvastatin (CRESTOR) 5 mg tablet Take 1 tablet (5 mg total) by mouth 1 (one) time each day. ALLERGIES: Allergies Allergies Allergen Reactions Clarithromycin Diarrhea and Nausea [...] over the next month or so at [facility]. Follow-up 2 weeks later at follow-up [...] answered to the best of my ability. History and Physical Update ( H&P completed prior to the previous thirty days ) I personally reviewed the History and Physical, interviewed and examined the patient prior to surgery. No changes have occurred in the patient's condition since the History and Physical was completed. documented in this encounter Procedure Notes * Oneyda Herrera RN - 03/22/2025 4:37 PM EDT DISCHARGE INSTRUCTIONS REVIEWED WITH PATIENT AND WITH STATED UNDERSTANDING * Obdulio Kim MD - 03/22/2025 1:20 PM EDT DAVINCI REPAIR RECURRENT RIGHT INGUINAL HERNIA W/ MESH (R) OPERATIVE NOTE Date: 03/22/2025 Location: [facility] OR Name: Venancio Siegel, : 1965, Diagnosis Pre-Op Diagnosis Codes: * Unilateral recurrent inguinal hernia without obstruction or gangrene [K40.91] Post-op Diagnosis * Unilateral recurrent inguinal hernia without obstruction or gangrene [K40.91] Procedures DAVINCI REPAIR RECURRENT RIGHT INGUINAL HERNIA W/ MESH [id number] - [place] LAP SURG REPR RECURRENT INGUINAL HERNIA Indications: Venancio Siegel is a 59 y.o. male who is having surgery for Pre-Op Diagnosis Codes: * Unilateral recurrent inguinal hernia without obstruction or gangrene [K40.91]. Surgeon(s) & Landing Signal Officer(s) * Obdulio Kim MD - Primary Landing Signal Officer: Miracle Teixeira PA-C Anesthesia: general ASA: III Estimated Blood Loss: Minimal Drains: * No LDAs found * Specimen: Procedure Details: We identified the patient and he was given intravenous antibiotics and general anesthesia. He was positioned with both arms tucked, pressure points padded. Abdomen was shaved, prepped and draped. Timeout was done. Local was placed and a transverse epigastric incision made. Dissection is carried through fat to the fascia with cautery. Fascia was elevated with an 0 Vicryl U-stitch, localized and incised and we anchored the first da Vincenzo port. Under direct visualization bilateral upper quadrant da Vincenzo ports were placed and I advanced the large fitted right-sided 3D max meshwith appropriate sutures into the peritoneal space. Patient was positioned and the robot docked. Rec urrence appeared to be a rather tight direct defect. Peritoneal flap was taken down with the hot scissors in the usual fashion, leaving the posterior lamina of the transversalis fascia against the abdominal wall lateral to the inferior epigastric vessels, and bring it down with the flap medial to them. Flap was widely developed first medially, carefully using hot scissors to expose the posterior aspect of the tubercle and Valentino's ligament and then dropped the bladder by approximately 2 cm. Lateral flap was then raised, leaving all tissue on the abdominal wall and stripping just peritoneum. This was carried posterior well out onto the psoas so that we had a sufficient space for the mesh. I returned to the site of the actual hernia, which again was a rather tight direct defect containing incarcerated fat. This was carefully reduced and from the pseudosac with the tips of thehot scissors. There was a small piece of lymphatic tissue including 1 node which was a potential lead point for recurrence, and I carefully took this tissue out of the opening of the direct defect and stripped it away from the adjacent abdominal wall until it hung freely in the dissected pocket. Wehad a few drops of blood loss here controlled with cautery. Case was otherwise hemostatic. We completed parietalizing the cord sugars and fully creating the peritoneal flap. I closed the direct defect with a [id number]-[id number] suture of 2-0 Ethibond, incorporating the transversalis fascia on either side as well as the pseudosac. Mesh was placed in position and secured posterior to the pubisand to Valentino's ligament with additional sutures of 2-0 Ethibond to hold it in position. Peritonealflap was closed with running 2-0 Monocryl barbed suture per usual. Sucker tip test was done and demonstrates the mesh lying flat against the abdominal wall. We retrieved all needles, released pneumoperitoneum, closed the camera port site with the Vicryl stitch, closed all incisions with Monocryl and Steri-Strips. He was awakened and transferred to recovery in stable condition, counts correct. He tolerated the procedure well. I will update his . Standard debrief was carried out with all room personnel at the close of the case. Findings: Direct recurrence Complications: None; patient tolerated the procedure well. Disposition: PACU - hemodynamically stable. * Nani Bryson RN - 03/22/2025 10:50 AM EDT Ride home Verenice [phone] documented in this encounter Plan of Treatment Upcoming Encounters Date Type Department Care Team (Late st Contact Info) Description 04/06/2025 9:45 AM EDT Office Visit General Surgery - [place] [address] [facility] [address] [place] [phone] Obdulio Kim MD [address] [facility] [address] [facility] [address] [place] [id number] documented as of this encounter Procedures Procedure Name Priority Date/Time Associated Diagnosis Comments [place] LAP SURG REPR RECURRENT INGUINAL HERNIA 03/22/2025 1:02 PM EDT Unilateral recurrent inguinal hernia without obstruction or gangrene Special Needs Robotic repair recurrent right inguinal hernia w/mesh asking 90 minutes for this case documented in this encounter Visit Diagnoses Diagnosis Unilateral recurrent inguinal hernia without obstruction or gangrene- Primary Unilateral recurrent inguinal hernia without obstruction or gangrene documented in this encounter Admitting Diagnoses Diagnosis Unilateral recurrent inguinal hernia without obstruction or gangrene documented in this encounter Administered Medications Inactive Administered Medications - up to 3 most recent administrations Medication Order MAR Action Action Date Dose Rate Site acetaminophen (TYLENOL) tablet 1,000 mg 1,000 mg, oral, Once, On Tita 03/22/25 at 1115, For 1 dose, Preprocedure, Give 1 hour prior to surgery Given 03/22/2025 12:33 PM EDT 1,000 mg bupivacaine-EPINEPHrine (MARCAINE w/EPI) 0.25 %-1:200,000 injection As needed, Starting on Tita 03/22/25 at 1320, Intraprocedure Given 03/22/2025 1:20 PM EDT 30 mL Abdominal Tissue celecoxib (CeleBREX) capsule 200 mg 200 mg, oral, Once, On Tita 03/22/25 at 1115, For 1 dose, Preprocedure Given 03/22/2025 12:33 PM EDT 200 mg diphenhydrAMINE (BENADRYL) injection 12.5 mg 12.5 mg, intravenous, Once as needed, itching, Starting on Tita 03/22/25 at 1554, For 1 dose, Phase II/On Unit HYDROmorphone (PF) injection 0.5 mg 0.5 mg, intravenous, Every 10 min PRN, severe pain, Starting on Tita 03/22/25 at 1429, For 4 doses, Recovery (only) Given 03/22/2025 3:13 PM EDT 0.5 mg Given 03/22/2025 2:52 PM EDT 0.5 mg Given 03/22/2025 2:40 PM EDT 0.5 mg lactated Ringer's infusion 75 mL/hr, intravenous, Continuous, Starting on Tita 03/22/25 at 1130, Preprocedure Restarted 03/22/2025 1:02 PM EDT New Bag 03/22/2025 12:34 PM EDT 75 mL/hr 75 mL/hr lactated Ringer's infusion 100 mL/hr, intravenous, Continuous, Starting on Tita 03/22/25 at 1445, Recovery (only) Continued from OR 03/22/2025 2:42 PM EDT 100 mL/hr 100 mL/hr ondansetron (PF) (ZOFRAN) injection 4 mg 4 mg, intravenous, Once as needed, nausea, vomiting, Starting on Tita 03/22/25 at 1554, For 1 dose, Phase II/On Unit, Infuse over 2 minutes. oxyCODONE (ROXICODONE) immediate release tablet 5 mg 5 mg, oral, Once as needed, mild pain, Starting on Tita 03/22/25 at 1554, For 1 dose, Phase II/On Unit Given 03/22/2025 4:30 PM EDT 5 mg sodium chloride 0.9 % flush 10 mL 10 mL, intravenous, 2 times daily, First dose on Tita 03/22/25 at 1130, Preprocedure sodium chloride 0.9 % flush 10 mL 10 mL, intravenous, As needed, line care, Starting on Tita 03/22/25 at 1114, Preprocedure documented in this encounter Discontinued Medications Medication Sig Discontinue Reason Start Date End Da te atorvastatin (LIPITOR) 10 mg tablet Take 1 tablet (10 mg total) by mouth 1 (one) time each day. 02/08/2025 baclofen (LIORESAL) 10 mg tablet Take 1 tablet (10 mg total) by mouth 3 (three) times a day. 02/08/2025 diclofenac (VOLTAREN) 75 mg EC tablet Take 1 tablet (75 mg total) by mouth 1 (one) time each day. 02/08/2025 traMADoL (ULTRAM) 50 mg tablet Take 1 tablet (50 mg total) by mouth every 6 (six) hours if needed. Max Daily Amount: 200 mg 02/08/2025 documented as of this encounter Active and Recently Administered Medications Times are shown in EDT. Scheduled Medication Order 03/20/2025 03/21/2025 03/22/2025 acetaminophen (TYLENOL) tablet 1,000 mg (COMPLETED) 1,000 mg, oral, Once, On Tita 03/22/25 at 1115, For 1 dose, Preprocedure, Give 1 hour prior to surgery 1233 (Given - Provid er: Nani Bryson RN) ceFAZolin (ANCEF) 2 g in sterile water 20 mL IV syringe 2 g, intravenous, Administer over 3 Minutes, Once, On Tita 03/22/25 at 1115, For 1 dose, Preprocedure, -IV Push over 3 minutes -Administer within 60 minutes of incision, Indication: Prophylaxis-Surgical 1115 (Canceled Entry - Provider: Automatic Discharge Provider - Comment: Automatically canceled at discontinue of medication order)1233 (Handoff - Provider: Nani Bryson RN) celecoxib (CeleBREX) capsule 200 mg (COMPLETED) 200 mg, oral, Once, On Tita 03/22/25 at 1115, For 1 dose, Preprocedure 1233 (Given - Provid er: Nani Bryson RN) oxyCODONE (OxyCONTIN) 12 hr abuse-deterrent tablet 10 mg 10 mg, oral, faculty i on call medical assistant, On Tita 03/22/25 at 1115, For 1 dose, Preprocedure, Do not crush, chew, or split. 1236 (Not Given - Pr ovider: Nani Bryson RN - Reason: Other - Comment: ?sensativity) sodium chloride 0.9 % flush 10 mL(Linked Group 1) 10 mL, intravenous, 2 times daily, First dose on Tita 03/22/25 at 1130, Preprocedure 1130 (Canceled Entry - Provider: Automatic Discharge Provider - Comment: Automatically canceled at discontinue of medication order) Continuous Medication Order 03/20/2025 03/21/2025 03/22/2025 lactated Ringer's infusion 75 mL/hr, intravenous, Continuous, Starting on Tita 03/22/25 at 1130, Preprocedure 1234 (New Bag - Prov ider: Nani Bryson RN)1301 (Paused - Provider: Rosario Gutierrez CRNA - Comment: Switch to gravity)1302 (Restarted - Provider: Rosario Gutierrez CRNA)1349 (Anesthesia Volume Adjustment - Provider: Rosario Gutierrez CRNA)1421 (Anesthesia Volume Adjustment - Provider: Rosario Gutierrez CRNA)1425 (Stopped - Provider: Rosario Gutierrez CRNA) lactated Ringer's infusion (CANCELED) 100 mL/hr, intravenous, Continuous, Starting on Tita 03/22/25 at 1445, Recovery (only) 1442 (Continued from OR - Provider: Petty Stock RN)1535 (Due: Stopped) PRN Medication Order 03/20/2025 03/21/2025 03/22/2025 bupivacaine-EPINEPHrine (MARCAINE w/EPI) 0.25 %-1:200,000 injection (CANCELED) As needed, Starting on Tita 03/22/25 at 1320, Intraprocedure 1320 (Given - Provid er: Obdulio Kim MD) diphenhydrAMINE (BENADRYL) injection 12.5 mg 12.5 mg, intravenous, Once as needed, itching, Starting on Tita 03/22/25 at 1554, For 1 dose, Phase II/On Unit HYDROmorphone (PF) injection 0.5 mg (CANCELED) 0.5 mg, intravenous, Every 10 min PRN, severe pain, Starting on Tita 03/22/25 at 1429, For 4 doses, Recovery (only) 1440 (Given - Provid er: Petty Stock RN)1452 (Given - Provider: Petty Stock RN)1513 (Given - Provider: Petty Stock RN) ondansetron (PF) (ZOFRAN) injection 4 mg 4 mg, intravenous, Once as needed, nausea, vomiting, Starting on Tita 03/22/25 at 1554, For 1 dose, Phase II/On Unit, Infuse over 2 minutes. oxyCODONE (ROXICODONE) immediate release tablet 5 mg (COMPLETED) 5 mg, oral, Once as needed, mild pain, Starting on Tita 03/22/25 at 1554, For 1 dose, Phase II/On Unit 1630 (Given - Provid er: Oneyda Herrera RN) sodium chloride 0.9 % flush 10 mL(Linked Group 1) 10 mL, intravenous, As needed, line care, Starting on Tita 03/22/25 at 1114, Preprocedure Linked Groups Order Group 1: Insert peripheral IV (CANCELED) STAT, Once, On Tita 03/22/25 at 1115, For 1 occurrence, Preprocedure And Maintain IV access (CANCELED) Until discontinued, Starting on Tita 03/22/25 at 1115, Until Specified, Preprocedure And Saline lock IV (CANCELED) Routine, Once, On Tita 03/22/25 at 1115, For 1 occurrence, Preprocedure And sodium chloride 0.9 % flush 10 mLJump to med 10 mL, intravenous, 2 times daily, First dose on Tita 03/22/25 at 1130, Preprocedure And sodium chloride 0.9 % flush 10 mLJump to med 10 mL, intravenous, As needed, line care, Starting on Tita 03/22/25 at 1114, Preprocedure documented in this encounter Orders Medications Ordered That Cameron ht Not Have Been Administered Count Last Ordered Date First Ordered Date albuterol 2.5 mg /3 mL (0.08 3 %) nebulizer solution 2.5 mg 1 03/22/2025 ceFAZolin (ANCEF) 2 g in chris rile water 20 mL IV syringe 1 03/22/2025 diphenhydrAMINE (BENADRYL) i njection 12.5 mg 1 03/22/2025 fentaNYL (PF) (SUBLIMAZE) injection 50 mcg 1 03/22/2025 haloperidol lactate (HALDOL) injection 1 mg 1 03/22/2025 ondansetron (PF) (ZOFRAN) injection 4 mg 1 03/22/2025 oxyCODONE (OxyCONTIN) 12 hr abuse-deterrent tablet 10 mg 1 03/22/2025 oxyCODONE-acetaminophen (PER COCET) 5-325 mg per tablet 1 tablet 1 03/22/2025 sodium chloride 0.9 % flush 10 mL 2 025 Discharge Count Last Ordered Date First Orde red Date DISCHARGE PATIENT 1 03/22/2025 documented in this encounter Care Teams Vehicle And Equipment Cleaner Relationship Specialty Start Date End Date Suleiman Foreman MD [address] [place] [phone] PCP - General Family Medicine 01/05/25 documented as of this encounter
--- OUTSIDE RECORDS SUMMARY | 2025-03-27 16:28 | XMS_ITS | Encounter Summary ---
Author Organization [facility] Address [address] [place] [address] Care Team Providers Care Power Bender Operator Name Role Phone Suleiman Foreman MD Primary Care Provider Encounter Details Date Type Department Care Team (Late Contact Info) Description 03/23/2025 Telephone [facility] [address] [phone] Leesa Martin MA Social History Tobacco Use Types Packs/Day Years [...] on file documented as of this encounter Plan of Treatment Upcoming Encounters Date Type Department Care Team (Late st Contact Info) Description 04/06/2025 9:45 AM EDT Office Visit [facility] [address] [phone] Obdulio Kim MD [address] [address] documented as of this encounter Visit Diagnoses Not on filedocumented in this encounter Care Teams Power Bender Operator Relationship Specialty Start Date End Date Suleiman Foreman MD [address] [place] [phone] PCP - General Family Medicine 01/05/25 documented as of this encounter
--- OUTSIDE RECORDS SUMMARY | 2025-03-27 16:29 | XMS_ITS | Encounter Summary ---
Author Organization [facility] Address [address] [place] [address] Care Team Providers Care Manager Trainee Name Role Phone Suleiman Foreman MD Primary Care Provider [phone] Reason for Visit * Auth/Cert (Routine) Specialty Diagnoses / Procedures Referred By Caleb t Referred To Contact Diagnoses Unilateral recurrent inguinal hernia without obstruction or gangrene Recurrent right inguinal hernia K40.91 Procedures [place] LAP SURG REPR RECURRENT INGUINAL HERNIA DAVINCI REPAIR RECURRENT RIGHT INGUINAL HERNIA W/MESH Obdulio Kim MD [address] [place] [address] Phone: tel: fax: [facility] OR [address] [place] [phone] Phone: tel: Referral ID Status Reason Start Date Expiration Date Visits Re quested Visits Authorized [id number] 1 1 Encounter Details Date Type Department Care Team (Late st Contact Info) Description 03/22/2025 1:02 PM EDT Anesthesia Event [address] [address] Bridgette Diaz MD [address] [place] [address] Barbara Murphy CRNA [address] [place] [address] Anesthesia Record Procedure Summary Procedure Name Responsible Anesthesiologist Anesthesia Start Time Anesthesia Stop Time DAVINCI REPAIR RECURRENT RIGHT INGUINAL HERNIA W/ MESH (Right: Abdomen) Bridgette Diaz MD 03/22/25 1302 03/22/25 1432 Events Date Time Event Comment 03/22/2025 1253 1302 In Room 1302 An Start 1302 An Start Data The patient wa s reevaluated immediately before moderate or deep sedation use and before anesthesia induction. 1308 An Induction 1311 An Intubation 1315 Anesthesia Ready 1320 Proc Start 1423 Proc Fin Spontaneous alix tilation w/ tidal volumes >250 mL: YES Adequate tidal volume: YES Adequate respiratory rate: YES Adequate airway reflexes: YES Obeys commands: YES Strong hand plant pathology teacher: YES Moving all extremities: YES Sustained head lift >5 seconds: YES Oropharynx suctioned: YES Patient fully reversed w/ Sugammadex; TOF = 4/4 with sustained tetany Technique: Awake, positive pressure at cuff deflation, positive airway reflexes Extubated awake on 100% O2, face mask in place +/- OPA, exchanging well Transported to PACU on 6 L/min O2 via simple mask 1423 An Extubation 1425 an stop data 1428 Out of Room 1432 Handoff to RN I completed my handoff to the receiving nurse during which we: 1. Identified the patient 2. Identified the responsible provider 3. Reviewed the pertinent medical history 4. Discussed the surgical course 5. Reviewed intra-op anesthesia management and issues during anesthesia 6. Set expectations for post-procedure period 7. Allowed opportunity for questions and acknowledgement of understanding. 1432 Handoff to RN I completed my handoff to the receiving nurse during which we: 1. Identified the patient 2. Identified the responsible provider 3. Reviewed the pertinent medical history 4. Discussed the surgical course 5. Reviewed intra-op anesthesia management and issues during anesthesia 6. Set expectations for post-procedure period 7. Allowed opportunity for questions and acknowledgement of understanding. 1432 An Stop Meds Name Total midazolam 1 mg/mL 2 mg fentaNYL (SUBLIMAZE) injection 100 mcg propofol (DIPRIVAN) injection 10 mg/mL 2 00 mg rocuronium 70 mg ondansetron 2 mg/mL 4 mg dexamethasone (DECADRON) injection 4 mg/ mL 4 mg lidocaine PF (XYLOCAINE-MPF) local injec tion 2% 100 mg ceFAZolin (ANCEF) 2 g in sterile water 2 0 mL IV syringe 0 g sugammadex (BRIDION) injection 100 mg/mL 200 mg HYDROmorphone (DILAUDID) injection 1 mg/ mL 0.5 mg lactated Ringer's infusion 800 mL * Agents Name Inspired N2O * Blood No blood administrations on file. Lines, Drains, and Airways Type Details Placement Removal Wound Incision; Abdomen; Medial, Upper 03/22/25 1322 by Wound Incision; Abdomen; R ight, Upper 03/22/25 1322 by Wound Incision; Abdomen; L eft, Upper 03/22/25 1322 by Peripheral IV Placement Date: 07/09; Placement Time: 1112; Catheter Size: 20 G; Orientation: Right; Location: Antecubital; Insertion Attempts: 1; Patient Tolerance: Tolerated well; Removal Date: 03/22/25; Removal Time: 1649 03/22/25 1112 by Nani Bryson RN 03/22/25 1649 by Oneyda Herrera RN ETT Placement Date: 07/09; Placement Time: 1321 (created via procedure documentation); Mask Ventilation: 1; Technique: Video laryngoscopy; Type: ETT; Blade Size: 3; Insertion Attempts: 1; Placement Verification: Auscultation, Capnometry; Airway Comments: Elective GS intubation 2/2 limited neck ROM ; Removal Date: 03/22/25; Removal Time: 1423 03/22/25 1321 by Rosario Gutierrez CRNA 03/22/25 1423 by Rosario Gutierrez CRNA documented in this encounter Social History Tobacco [...] as of this encounter Progress Notes * Rosario Gutierrez CRNA - 03/22/2025 2:32 PM EDT Patient: Venancio Siegel Procedure Summary Date: 03/22/25 Room / Location: [facility] OR Anesthesia Start: 1302 Anesthesia Stop: 143 Procedure: DAVINCI REPAIR RECURRENT RIGHT INGUINAL HERNIA W/ MESH (Right: Abdomen) Diagnosis: Unilateral recurrent inguinal hernia without obstruction or gangrene (Recurrent right inguinal hernia K40.91) Surgeons: Obdulio Kim MD Responsible Provider: Bridgette Diaz MD Anesthesia Type: general ASA Status: 3 Anesthesia Plan: general Last Vitals: Vitals Value Taken Time BP 135/72 03/22/25 1432 Temp 97.4 03/22/25 1432 Pulse 63 03/22/25 1432 Resp 18 03/22/25 1432 SpO2 100 03/22/25 1432 No data recorded Anesthesia Post Evaluation Patient location during evaluation: PACU Patient participation: complete - patient participated Level of consciousness: sleepy but conscious Pain management: adequate Airway patency: patent Anesthetic complications: no Cardiovascular status: acceptable and hemodynamically stable Respiratory status: acceptable and room air Hydration status: acceptable Nausea: No Vomiting: No There were no known notable events for this encounter. * Rosario Gutierrez CRNA - 03/22/2025 1:21 PM EDTAssociated Order(s): Intubation General Information and Staff Patient location during procedure: OR Resident/FISHER HAND LINE: Rosario Gutierrez CRNA Performed: resident/OTILIA/CAA Performed by: Rosario Gutierrez CRNA Authorized by: Bridgette Diaz MD Intubation Additional Comments Elective GS intubation 2/2 [...] difficulty assessment: 1 - vent by mask * Rosario Gutierrez CRNA - 03/22/2025 11:08 AM EDT 59 y.o. male scheduled for [LAPS SURG RPR RECURRENT INGUINAL HERNIA [[id number]] (DONOVAN RE*] Ht Readings from Last 1 Encounters: 03/22/25 1.727 m (67.99 ) Wt Readings from Last 1 Encounters: 03/22/25 88.5 kg (195 lb) Body mass index is 29.66 kg/m??. Past Medical History: Diagnosis Date ??? Low back pain ??? Lyme disease 2006 DX:Lyme disease ??? Mixed hyperlipidemia DX:Mixed hyperlipidemia ??? Osteoarthritis DX:Osteoarthritis ??? Sciatica Past Surgical History: Procedure Laterality Date ??? CERVICAL DISCECTOMY ??? HERNIA REPAIR ??? OTHER SURGICAL HISTORY 04/17/2016 PROCEDURE: HISTORY OTHER; COMMENT: Right C6-7 posterior decompression, Dr. Wilson ??? RETINAL LASER PROCEDURE ??? SINUS SURGERY 2006 PROCEDURE: [place] UNLISTED PROCEDURE ACCESSORY SINUSES; COMMENT: polyp removed Denies anesthesia complications Allergies Allergen Reactions ??? Clarithromycin Diarrhea and Nausea And Vomiting ??? Latex Rash ??? Oxycodone-Acetaminophen Nausea And Vomiting ??? Penicillins Diarrhea and Nausea And Vomiting ??? Sulfa (Sulfonamide Antibiotics) Other Reaction(s): Rash/Dermatitis No current facility-administered medications on file prior to encounter. Current Outpatient Medications on File Prior to Encounter Medication Sig Dispense Refill ??? meloxicam (MOBIC) 15 mg tablet ??? rosuvastatin (CRESTOR) 5 mg tablet Take 1 tablet (5 mg total) by mouth 1 (one) time each day. Current In-hospital Medications acetaminophen, 1,000 mg, oral, Once ceFAZolin, 2 g, intravenous, Once celecoxib, 200 mg, oral, Once oxyCODONE, 10 mg, oral, house calls nurse Social History Tobacco Use ??? Smoking status: Never Substance Use Topics ??? Alcohol use: Not Currently ??? Drug use: Never Is the patient a current smoker (e.g. cigarette, cigar, pip, e-cigarette, or mariajuana)? Yes [] No[] Patient previously instructed to abstain from smoking on the day of procedure? Yes [] No[] Patient smoked on the day of procedure? Yes [] No[] ASPIRE smoking VBR: [] Not interested in quitting [] Interested in quitting- referred to treatment [] Interested in quitting - treatment provided Visit Vitals BP (!) 133/94 Pulse 64 Temp 36.6 ??C (97.9 ??F) Resp 16 Ht 1.727 m (67.99 ) Wt 88.5 kg (195 lb) SpO2 99% BMI 29.66 kg/m?? Smoking Status Never BSA 2.02 m?? Available cardiac studies reviewed: No results found. EKG No results found for this or any previous visit (from the past 4464 hours). ECHO No results found for this or any previous visit. CATH No results found for this or any previous visit. LABS: No results found for: WBC , HGB , HCT , MCV , PLT No results found for: GLUCOSE , CALCIUM , NA , K , CO2 , CL , BUN , CREATININE No results found for: INR , PROTIME No results found for: PTT Chronic neck and back pain Cervical decompression 2016 and neck injury three years later HLD Denies cardiac, pulm, neuro, hepatic or renal s/sx. Patient meets ASA guidelines for NPO status. > 4 mets without anginal symptoms. Relevant labs, vitals, imaging, cardiac and pulmonary studies as well as HPI, Meds, Allergies, ROS,PMH, PSH, SH, and FH reviewed. Relevant Problems No relevant active problems Clinical information reviewed: Tobacco Allergies Meds Med Hx Surg Hx Fam Hx Soc Hx Anesthesia Plan ASA 3 Anesthesia Plan: general General Anesthesia Considerations: ETT Anesthesia Risks Discussed dental injury, nausea, pain, sore throat, corneal abrasion, allergic reaction and serious complications Monitoring Considerations video laryngoscope Plan Factors Patient is not a current smoker Induction method: intravenous Anesthesia Evaluation Airway Mallampati: IV Dental - normal exam Pulmonary - negative ROS breath sounds clear to auscultation Cardiovascular - negative ROS Rhythm: regular Rate: normal ROS comment: HLD Neuro/Psych Comments: Back pain GI/Hepatic/Renal - negative ROS Endo/Other - negative ROS Abdominal PONV RISK SCORE: 2 Vitals: 02/08/25 1200 03/01/25 1500 03/22/25 1055 03/22/25 1056 BP: (!) 133/94 Pulse: 64 Resp: 16 Temp: 36.6 ??C (97.9 ??F) SpO2: 99% Weight: 88.5 kg (195 lb) 88.5 kg (195 lb) 88.5 kg (195 lb) Height: 1.727 m (68 ) 1.727 m (67.99 ) 1.727 m (67.99 ) SpO2 Readings from Last 1 Encounters: 03/22/25 99% No results found for: WBC , RBC , HGB , HCT , PLT , MCV Allergies Allergen Reactions ??? Clarithromycin Diarrhea and Nausea And Vomiting ??? Latex Rash ??? Oxycodone-Acetaminophen Nausea And Vomiting ??? Penicillins Diarrhea and Nausea And Vomiting ??? Sulfa (Sulfonamide Antibiotics) Other Reaction(s): Rash/Dermatitis STOP BANG: STOP-Bang Total Score: 2 (03/22/2025 11:03 AM) NPO Status: Time of Last Liquid: 2200 Time of Last Solid: 2200 documented in this encounter Plan of Treatment Upcoming Encounters Date Type Department Care Team (Late st Contact Info) Description 04/06/2025 9:45 AM EDT Office Visit General Surgery - [place] 175 [facility] [address] [place] [phone] Obdulio Kim MD 175 [facility] [address] [place] [address] documented as of this encounter Procedures Procedure Name Priority Date/Time Associated Diagnosis Comments TH AN ENDOTRACHEAL(NO CHARGE) Routine 03/22/2025 1:21 PM EDT documented in this encounter Results * TH AN ENDOTRACHEAL(NO CHARGE) (03/22/2025 1:21 PM EDT) Rosario Fuentes CRNA - 03/22/2025 1:21 PM EDT Rosario Gutierrez CRNA ? 03/22/2025 ??1:21 PM General Information and Staff Patient location during procedure: OR Resident/FISHER HAND LINE: Rosario Gutierrez CRNA Performed: resident/FISHER HAND LINE/CAA Performed by: Rosario Gutierrez CRNA Authorized by: [...] Diaz MD ANESTHESIA ORDERABLES Fin al Result documented in this encounter Visit Diagnoses Not on filedocumented in this encounter Administered Medications Inactive Administered Medications - up to 3 most recent administrations Medication Order MAR Action Action Date Dose Rate Site dexAMETHasone (DECADRON) injection intravenous, As needed, Starting on Tita 03/22/25 at 1318, Anesthesia Intraprocedure Given 03/22/2025 1:18 PM EDT 4 mg fentaNYL (PF) (SUBLIMAZE) injection intravenous, As needed, Starting on Tita 03/22/25 at 1308, Anesthesia Intraprocedure Given 03/22/2025 1:08 PM EDT 100 mcg HYDROmorphone (DILAUDID) injection intravenous, As needed, Starting on Tita 03/22/25 at 1417, Anesthesia Intraprocedure Given 03/22/2025 2:17 PM EDT 0.5 mg lactated Ringer's infusion 75 mL/hr, intravenous, Continuous, Starting on Tita 03/22/25 at 1130, Preprocedure Restarted 03/22/2025 1:02 PM EDT New Bag 03/22/2025 12:34 PM EDT 75 mL/hr 75 mL/hr lidocaine (PF) (XYLOCAINE-MPF) 2 % injection injection, As needed, Starting on Tita 03/22/25 at 1308, Anesthesia Intraprocedure Given 03/22/2025 1:08 PM EDT 100 mg midazolam (VERSED) injection intravenous, As needed, Starting on Tita 03/22/25 at 1259, Anesthesia Intraprocedure Given 03/22/2025 12:59 PM EDT 2 mg ondansetron (PF) (ZOFRAN) injection intravenous, As needed, Starting on Tita 03/22/25 at 1412, Anesthesia Intraprocedure Given 03/22/2025 2:12 PM EDT 4 mg propofoL (DIPRIVAN) injection intravenous, As needed, Starting on Tita 03/22/25 at 1308, Anesthesia Intraprocedure Given 03/22/2025 1:08 PM EDT 20 0 mg rocuronium (ZEMURON) injection intravenous, As needed, Starting on Tita 03/22/25 at 1308, Anesthesia Intraprocedure Given 03/22/2025 1:50 PM EDT 20 mg Given 03/22/2025 1:08 PM EDT 50 mg sugammadex (BRIDION) 100 mg/mL injection intravenous, As needed, Starting on Tita 03/22/25 at 1415, Anesthesia Intraprocedure Given 03/22/2025 2:15 PM EDT 20 0 mg documented in this encounter Care Teams Manager Trainee Relationship Specialty Start Date End Date Suleiman Foreman MD [address] [place] [address] PCP - General Family Medicine 01/05/25 documented as of this encounter
--- OUTSIDE RECORDS SUMMARY | 2025-03-27 16:29 | XMS_ITS | Encounter Summary ---
Author Organization [facility] Address [address] [place] [address] Care Team Providers Care Drum Sprayer Name Role Phone Suleiman Foreman MD Primary Care Provider [phone] Reason for Visit * Auth/Cert (Routine) Specialty Diagnoses / Procedures Referred By Caleb t Referred To Contact Diagnoses Unilateral recurrent inguinal hernia without obstruction or gangrene Recurrent right inguinal hernia K40.91 Procedures [place] LAP SURG REPR RECURRENT INGUINAL HERNIA DAVINCI REPAIR RECURRENT RIGHT INGUINAL HERNIA W/MESH Obdulio Kim MD [address] [address] Phone: tel: fax: [facility] OR [address] [place] [phone] Phone: tel: Referral ID Status Reason Start Date Expiration Date Visits Re quested Visits Authorized [id number] 1 1 Encounter Details Date Type Department Care Team (Latest Contact Info) Description 03/22/2025 10:42 AM EDT - 03/22/2025 4:56 PM EDT Hospital Encounter [facility] Main OR [address] [place] [phone] Obdulio Kim MD [address] [address] Discharge Disposition: Home or Self Care Social History Tobacco Use Types Packs/Day Years [...] or Aleve (dose according to package instructions) [id number], and reserve the prescription narcotic for breakthrough [...] move your bowels; treat constipationaggressively with any lgcs-uim-hdebiht agents such as milk of magnesia. Call the office at [phone] if you develop fever greater than 101F or significant spreading redness around one of your incisions. Please be aware, a little bit of redness at the cuts is normal and does not indicate infection. * Attachments The following attachments cannot be sent through Care Everywhere. * Hernia Repair: Post-op (Jordanian) * General Anesthesia (Jordanian) documented in this encounter Medications at Time [...] Daily Amount: 4 tablets 12 tablet 03/22/2025 documented in this encounter Discharge Disposition Disposition Code Departure Means Destination Comment s Home or Self Care Wheelchair Home documented in this encounter H&P Notes * Obdulio Kmi MD - 03/22/2025 12:22 PM EDT Progress [...] decompression, Dr. Wilson SINUS SURGERY 2006 PROCEDURE: [place] UNLISTED PROCEDURE [...] over the next month or so at [facility] Follow-up 2 weeks later at follow-up as [...] MESH (R) OPERATIVE NOTE Date: 03/22/2025 Location: [facility] OR Name: Venancio Siegel, : 1965, Diagnosis Pre-Op Diagnosis Codes: * Unilateral recurrent inguinal hernia without obstruction or gangrene [K40.91] Post-op Diagnosis * Unilateral recurrent inguinal hernia without obstruction or gangrene [K40.91] Procedures DAVINCI REPAIR RECURRENT RIGHT INGUINAL HERNIA W/ MESH [id number] - [place] LAP SURG REPR RECURRENT INGUINAL HERNIA Indications: Venancio Siegel is a 59 y.o. male who is having surgery for Pre-Op Diagnosis Codes: * Unilateral recurrent inguinal hernia without obstruction or gangrene [K40.91]. Surgeon(s) & Helmet Hat Puncher(s) * Obdulio Kim MD - Primary Helmet Hat Puncher: Miracle Teixeira PA-C Anesthesia: general ASA: III [...] I closed the direct defect with a tqzbot-hv-iyjvn suture of 2-0 Ethibond, incorporating the transversalis [...] 03/22/2025 10:50 AM EDT Ride home Verenice [phone] documented in this encounter Plan of Treatment Upcoming Encounters Date Type Department Care Team (Late st Contact Info) Description 04/06/2025 9:45 AM EDT Office Visit General Surgery - [place] 175 [facility] [address] [place] [phone] Obdulio Kim MD 175 [facility] [address] [place] [address] documented as of this encounter Procedures Procedure Name Priority Date/Time Associated Diagnosis Comments [place] LAP SURG REPR RECURRENT INGUINAL HERNIA 03/22/2025 1:02 PM EDT Unilateral recurrent inguinal hernia without obstruction or gangrene Special Needs Robotic repair recurrent right inguinal hernia w/mesh asking 90 minutes for this case documented in this encounter Visit Diagnoses Diagnosis Unilateral recurrent inguinal hernia without obstruction or gangrene- Primary documented in this encounter Admitting Diagnoses Diagnosis [...] Given 03/22/2025 12:33 PM EDT 1,000 mg celecoxib (CeleBREX) capsule 200 mg 200 mg, [...] abuse-deterrent tablet 10 mg 10 mg, oral, 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
[2025-03-27 17:55] LABS: Alanine Aminotransferase 45 U/L (0-40); Albumin Level 4.3 g/dL (3.5-5.0); Alkaline Phosphatase 61 U/L (39-117); Anion Gap 13 (12-20); Aspartate Amino Transferase 34 U/L (5-37); Bilirubin Total 0.3 mg/dL (0.0-1.0); Blood Urea Nitrogen 23 mg/dL (9-16); Calcium 9.4 mg/dL (8.4-10.2); Carbon Dioxide 27 mmol/L (22-29); Chloride 104 mmol/L (96-108); Estimated Glomerular Filt Rate > 60; Glucose Random 96 mg/dL (60-115); Potassium 4.1 mmol/L (3.3-5.1); Sodium 140 mmol/L (135-145); Total Protein 7.7 g/dL (6.5-8.0)
== END 2025-03-27 15:47 | disposition home or self-care (01) ==
LOC: HO.LAB 15:46
PROVIDERS: PCP Family Medicine; Visit Provider Family Medicine
DX: K76.89 Other specified diseases of liver (principal)
CPT/HCPCS: 36415; 80053

== ENCOUNTER 2025-03-30 09:52 | Outpatient (REF) | payer BC, SELFPAY ==
--- NOTE | ~2025-03-30 | MR_ITS ---
EXAMINATION: MR PELVIS WITHOUT IV CONTRAST HISTORY: M89.8X9 - Other specified disorders of bone, unspecified site. TECHNIQUE: Axial T1 and fat-suppressed T2, coronal T1 and STIR, and sagittal fat-suppressed T2-weighted MR images of the pelvis were obtained. COMPARISON: Correlation is made with the report from an outside abdominal CT scan dated 12/13/2024 which describes a 1.6 cm lytic lesion in the right iliac crest. FINDINGS: Bone marrow signal intensity is normal. No lytic lesion is identified. The hip joints are maintained. There is no hip joint effusion. The sacroiliac joints are unremarkable in appearance. There is a small amount of fluid in the right groin. The urinary bladder is collapsed. No ascites or pelvic lymphadenopathy is identified. MR/MR pelvis wo con IMPRESSION: 1. No MR abnormality is seen involving the right iliac crest. Comparison with the prior outside CT is recommended. 2. Small amount of fluid in the right groin. This may be postsurgical in nature. Clinical correlation is recommended. Electronically signed by: Anam Guardado MD 03/30/2025 11:53 AM EDT
--- NOTE | ~2025-03-30 | MR_ITS ---
EXAMINATION: MR ABDOMEN WITHOUT THEN WITH IV CONTRAST HISTORY: K76.89 - Other specified diseases of liver COMPARISON: Correlation is made with an abdominal ultrasound dated 02/05/2025. TECHNIQUE: Axial in and out of phase T1-weighted gradient echo, axial diffusion weighted, and axial and coronal HASTE T2 with fat saturation images were obtained through the abdomen. Subsequently, fat suppressed axial and coronal T1-weighted images were obtained after the intravenous administration of 9 mL Gadavist. FINDINGS: Liver: There is no loss of signal intensity in the liver on opposed phase imaging to suggest steatosis. Multiple hepatic cysts are noted including a 1.4 cm cyst in segment VII, a 1.2 cm cyst in segment VIII, and a 2.0 cm septated cyst in segment IV. Additional smaller cysts are also noted. There is no enhancing liver mass. The hepatic and portal veins are patent. There is no intra- or extrahepatic biliary dilatation. Gallbladder: No gallstones are identified. Spleen: The spleen is unremarkable. Pancreas: The pancreas is unremarkable. The pancreatic duct is normal in caliber. Adrenals: The adrenal glands are unremarkable. Kidneys: The right kidney is unremarkable. There are probable subcentimeter cysts at the upper and lower poles of the left kidney. There is no hydronephrosis. Lymph nodes: There is no retroperitoneal lymphadenopathy in the upper abdomen. Fluid: There is no ascites in the upper abdomen. Visualized bowel: The visualized bowels loops are unremarkable in appearance. Visualized bones: The visualized bones demonstrate normal marrow signal intensity. MR/MR abdomen wo/w con IMPRESSION: Multiple hepatic cysts as described. Electronically signed by: Anam Guardado MD 03/30/2025 11:35 AM EDT
--- OUTSIDE RECORDS SUMMARY | 2025-03-30 10:10 | XMS_ITS | Encounter Summary ---
Author Organization [facility] Address [address] [place] [address] Care Team Providers Care Waiter/Waitress Tavern Name Role Phone Suleiman Foreman MD Primary Care Provider Encounter Details Date Type Department Care Team (Late Contact Info) Description 03/23/2025 Telephone [facility] [address] [phone] Leesa Martin [place] Social History Tobacco Use [...] Description 04/06/2025 9:45 AM EDT Office Visit [facility] [address] [phone] Obdulio Kim MD [address] [address] documented as of this encounter Visit Diagnoses Not on filedocumented in this encounter Care Teams Waiter/Waitress Tavern Relationship Specialty Start Date End Date Suleiman Foreman MD [address] [place] [phone] PCP - General Family Medicine 01/05/25 documented as of this encounter
--- OUTSIDE RECORDS SUMMARY | 2025-03-30 10:10 | XMS_ITS | Clinical Summary ---
Author Organization 175 [facility] Address [address] [place] [address] Phone Care Team Providers Care Darklight Inspector Name Role Phone Suleiman Foreman MD Primary Care Provider Allergies Active Allergy Reactions Criticality Noted Date Comments Clarithromycin Diarrhea,Nausea And Vomiting 12/24/2021 Latex Rash 01/12/2025 Oxycodone-Acetaminophen Nausea And Vomiting Penicillins Diarrhea,Nausea And Vomiting 12/24/2021 Sulfa (Sulfonamide Antibiotics) 12/24/2021 Other Reaction(s): Rash/Dermatitis Medications rosuvastatin (CRESTOR) 5 mg tablet Take 1 tablet (5 mg total) by mouth 1 (one) time each day. 4 Active meloxicam (MOBIC) 15 mg tablet 5 Active HYDROcodone-marcin taminophen (NORCO) 5-325 mg per tablet Take 1 tablet by mouth every 6 (six) hours if needed for moderate pain for up to 5 days. Max Daily Amount: 4 tablets 12 tablet 5 03/27/20 25 Active Problems Problem Noted Date Diagnosed Date [...] MRI lumbar and thoracic spine 09/22/2021 at [facility] shows minimal degenerative changes, mild left foraminal L4-5 disc bulging, no significant foraminal or central stenosis at any level. He does not recall where his last C-spine MRI was done, will call us when he gets home and looks at the disc. I did review an old C-spine MRI at [facility] 02/24/13 that showed mild disc bulging at [...] Team Description 03/23/2025 Telephone General Surgery - [place] 175 [facility] [address] [place] [address] Leesa Martin [place] 03/22/2025 1:02 PM EDT Anesthesia Event [facility] Main OR [address] [place] [address] Bridgette Diaz MD Swanson, Mona, CRNA 03/22/2025 12:00 PM EDT - 03/22/2025 2:00 PM EDT Surgery [facility] Main OR [address] [place] [address] Obdulio Kim MD DAVINCI REPAIR RECURRENT RIGHT INGUINAL HERNIA W/ MESH [[id number] (CPT??)] 03/22/2025 10:42 AM EDT - 03/22/2025 4:56 PM EDT Hospital Encounter [facility] Main [place] [address] [place] [address] Obdulio Kim MD Discharge Disposition: Home or Self Care 02/08/2025 Telephone General Surgery [address] [phone] Obdulio Kim MD FORMS/FMLA 01/19/2025 Telephone General Surgery [address] [address] Obdulio Kim MD prior auth (02/15/2025 Dr. Kim) 01/11/2025 2:30 PM EST Consult General Surgery - [address] [phone] Obdulio Kim MD Unilateral recurrent inguinal hernia [...] Date Site/Laterality Comments SINUS SURGERY 2006 PROCEDURE: [place] UNLISTED PROCEDURE ACCESSORY SINUSES; COMMENT: polyp removed [...] AM EDT Office Visit General Surgery - [place] [address] [phone] Obdulio Kim MD [address] [address] Health Maintenance Due Date Last Done Comments [...] this topic Medical Devices Implanted Type Area Self Propelled Dredge Operator Device Identifier Shelf Expiration Date Model / Serial / Lot Mesh 3dmax Lght Lg 4.1x6.2 R 4.1x6.2in - Sn/A - [id number] Implanted:Qty: 1 on 03/22/2025 by Obdulio Kim MD at [facility] Surgical Mesh Sling Implants Right: Abdomen CR BARD - DAVOL DIV 07/12/2029 [id number] / N/A / [id number] Procedures Procedure Name Priority Date/Time Associated Diagnosis Comments TH AN ENDOTRACHEAL(NO CHARGE) Routine 03/22/2025 1:21 PM EDT [place] LAP SURG REPR RECURRENT INGUINAL HERNIA 03/22/2025 [...] and Staff Patient location during procedure: OR Resident/ANIMAL CONTROL OFFICER: Rosario Gutierrez CRNA Performed: resident/ANIMAL CONTROL OFFICER/CAA Performed by: Rosario Gutierrez CRNA Authorized by: [...] al Result from Last 3 Months Insurance [facility] Advance Directives * Full Code - Default [...] currently active code status orders. Care Teams Darklight Inspector Relationship Specialty Start Date End Date Suleiman Foreman MD [address] [place] [phone] PCP - General Family Medicine 01/05/25
[2025-03-30] MEDS: gadobutroL 10 ML VIAL IVPUSH (10:48)
== END 2025-03-30 09:53 | disposition home or self-care (01) ==
LOC: HO.MRI 09:52
PROVIDERS: PCP Family Medicine; Visit Provider Family Medicine
DX: M89.8X9 Other specified disorders of bone, unspecified site (principal); K76.89 Other specified diseases of liver; K82.4 Cholesterolosis of gallbladder
CPT/HCPCS: 72195; 74183; A9585

== ENCOUNTER → 2025-03-30 09:56 | Outpatient (BNV) | payer BC, SELFPAY | PROVIDERS: PCP Family Medicine; Visit Provider Radiology Diagnostic Radiology | DX: Q44.6 Cystic disease of liver (principal); R19.09 Other intra-abdominal and pelvic swelling, mass and lump | CPT/HCPCS: 72195; 74183 ==

== ENCOUNTER 2025-04-11 14:24 | Outpatient (AMB) | payer BC, SELFPAY ==
--- NOTE | 2025-04-11 14:25 | MHC.PC.OV ---
Vital Signs 04/11/25 14:31 Height 5 ft 8 in Weight 200 lb 2 oz BMI 30.4 BP 132/74 Blood Pressure Location Lt brachial Position Sitting Respiration 14 Pulse 55 Pulse Source Pulse Oximeter Temp 97.8 F Temp Source Oral Pulse Oximetry (%) 97 Oxygen Delivery Method Room Air Intake Visit Reasons: f/u chronic conditions Intake Note: Patient is scheduled for chronic condition patient said last year he had eye check and the stamping operator took him had something in the back of left eye and want it checked out. Allergies acetaminophen [Percocet] Allergy (Unknown, Verified 04/11/25 14:27) NAUSEA/TINGLING FACE oxycodone [Percocet] Allergy (Unknown, Verified 04/11/25 14:27) NAUSEA/TINGLING FACE penicillin V Allergy (Unknown, Verified 04/11/25 14:27) DIARRHEA Sulfa (Sulfonamide Antibiotics) Allergy (Unknown, Verified 04/11/25 14:27) rash Sulfacet-R Allergy (Unknown, Uncoded 04/11/25 14:27) rash Tobacco use date assessed: 04/11/25 Dental Screening Dental Screen Date: 04/11/25 Did you have a dental visit in the last 12 months?: Yes Did you have a dental problem in the last 6 months where you did not have access to dental care?: No Was dental information given to patient?: No HPI f/u chronic conditions HPI Details 59 y/o male presents to f/u chronic conditions. Folowing up on MRI imaging of septated liver cysts and gallbladder polyps. Recent ultrasound showed septated cysts approximately 2 x 2 x 2 cm also showed gallbladder polyps. Recommended six-month follow-up for polyps. Patient also had incidental finding of lytic lesions on pelvic crest. He plain x-ray did not see these. Checking MRI of pelvis as well Abdomen MRI 03/30/25 showed: Liver: There is no loss of signal intensity in the liver on opposed phase imaging to suggest steatosis. Multiple hepatic cysts are noted including a 1.4 cm cyst in segment VII, a 1.2 cm cyst in segment VIII, and a 2.0 cm septated cyst in segment IV. Additional smaller cysts are also noted. There is no enhancing liver mass. The hepatic and portal veins are patent. There is no intra- or extrahepatic biliary dilatation. Multiple hepatic cysts as described. No gallbladder polyps were seen. Pelvis MRI 03/30/25 showed: 1. No MR abnormality is seen involving the right iliac crest. Comparison with the prior outside CT is recommended. 2. Small amount of fluid in the right groin. This may be postsurgical in nature. Clinical correlation is recommended. [facility] Medical History Celiac disease Chronic musculoskeletal pain Hx of Lyme disease Polyarthralgia Surgical History H/O sinus surgery H/O neck surgery Hx of hernia repair Family History Mother Pancreatic cancer Father No problems noted. 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 Current occupational exposures/hazards: No Cognitive needs: No Hearing needs: No Vision needs: Yes Questionnaire Thrive Questionnaire Date Thrive assessed: 04/11/25 I am a: Patient What is your living situation today?: I have a steady place to live Within the past 12 months, did the food you bought not last and you didn't have the money to get more?: Never true Within the past 12 months, did you worry whether your food would run out before you got money to buy more?: Never true Do you have trouble paying for medicines?: No Do you have trouble getting transportation to medical appointments?: No Do you have trouble paying your heating and electricity bill?: No Do you have trouble taking care of your child, family member or friend?: No Do you have trouble with day-to-day activities such as bathing, preparing meals, shopping, managing finances, etc.?: No Are you currently unemployed and looking for a job?: No Are you interested in more education?: No Please select the resources that you would like help with: None Currently or been in a relationship where the following occur: No concerns reported THRIVE Score: 0 LINDA-7 AMB Questionnaire LINDA-7 Date LINDA - 7 assessed: 02/07/25 Source: Developed by Drs. Anam Campbell, Radha Nava, Toni Arana and colleagues, with an educational lin from [employer]. Review of Systems Const Denies chills, Denies fatigue, Denies fever(s), Denies headache(s) and Denies weakness ENT Denies dizziness and Denies headache(s) Card Denies dyspnea Resp Denies cough, Denies dyspnea, Denies wheezing and Denies other (shortness of breath) Musc Denies numbness and Denies tingling Neuro Denies dizziness, Denies headache(s), Denies numbness, Denies tingling and Denies weakness Psych Denies anxiety and Denies depression Endo Denies fatigue Aller/Immun Denies wheezing Physical exam (Primary Care) Vital Signs: Last Vital Signs Temp 97.8 F 04/11/25 14:31 Pulse 55 04/11/25 14:31 Resp 14 04/11/25 14:31 BP 132/74 04/11/25 14:31 Pulse Ox 97 04/11/25 14:31 Oxygen Delivery Method Room Air 04/11/25 14:31 BMI result Body Mass Index 30.4 Tobacco/Smoking Status: Tobacco use Status Tobacco use date assessed 04/11/25 04/11/25 14:30 Patient Tobacco Use Status Never used Tobacco 04/11/25 14:30 e-Cigarette/Vaping Use Never Used 04/11/25 14:30 Thrive Assessment: Date of Thrive Assessment Date Thrive assessed 04/11/25 04/11/25 14:30 Currently or been in a relationship where the following occur: No concerns reported Const General: well developed; No acute distress Nutritional Appearance: well nourished Orientation/consciousness: patient oriented x3 [facility] Head: Yes normocephalic and Yes atraumatic Eyes General: appearance normal, both eyes and all related structures Pupils: Equal, round and reactive pupils present EOM: EOMs intact bilaterally Resp Effort & Inspection: normal respiratory effort Neuro General: patient oriented x3 and gait normal Cranial nerves: Yes Equal, round and reactive pupils present Psych Affect: normal affect Coding Level of Care Code Est Pt Level 4 (41274) Diagnoses Gall bladder polyp K82.4 Lytic lesion of bone on x-ray M89.8X9 Liver cyst K76.89 Assessment & Plan Assessment & Plan (1) Gall bladder polyp: Code(s): K82.4 - Cholesterolosis of gallbladder Category: Medical Plan: Patient?had?an?ultrasound?which?showed?gallbladder?polyps However,?recent?MRI?of?the?abdomen?did?not?show?gallbladder?polyps?or?gallstones. The?ultrasound?had?also?shown?liver?cysts?and?recommended?a?six-month?follow-up?so?we?will?reassess?at?that?time (2) Lytic lesion of bone on x-ray: Code(s): M89.8X9 - Other specified disorders of bone, unspecified site Category: Medical Plan: Prior?imaging?has?shown?a?lytic?lesion?on?pelvic?crest X-ray?did?not?reveal?this Recent?MRI?did?not?show?in?that?it?lesion Will?get?a?bone?scan (3) Liver cyst: Code(s): K76.89 - Other specified diseases of liver Category: Medical Plan: Liver?cysts?again?seen?on?MRI, confirming?ultrasound. Some?septated?cysts. No?enhancing?lesions Ultrasound?had?recommended?six-month?follow-up?which?we?will?get Orders: Orders NM bone 3 phase Today M89.8X9 - Other specified disorders of bone, unspecified site US abdomen limited 4 Months K76.89 - Other specified diseases of liver, K82.4 - Cholesterolosis of gallbladder
[2025-04-11 14:31] VITALS: BP 132/74; PULSE 55; RESP 14; TEMP 36.6; O2SAT 97; BMI 30.4
--- OUTSIDE RECORDS SUMMARY | 2025-04-11 15:16 | XMS_ITS | Clinical Summary ---
Author Organization 175 [facility] Address [address] [place] [address] Phone Care Team Providers Care Supervisor Nurse Name Role Phone Suleiman Foreman MD Primary [...] Encounters Date Type Department Care Team Description 04/06/2025 9:45 AM EDT Office Visit General Surgery [address] [address] Obdulio Kim MD Unilateral recurrent inguinal hernia without obstruction or gangrene (Primary Dx) 03/23/2025 Telephone General Surgery [address] [phone] Leesa Martin MA 03/22/2025 1:02 PM EDT Anesthesia Event [facility] OR [address] [place] [phone] rBidgette Diaz MD Swanson BarbaraOTILIA 03/22/2025 12:00 PM EDT - 03/22/2025 2:00 PM EDT Surgery [facility] OR [address] [place] [phone] Obdulio Kim MD DAVINCI REPAIR RECURRENT RIGHT INGUINAL HERNIA W/ MESH [22023 (CPT??)] 03/22/2025 10:42 AM EDT - 03/22/2025 4:56 PM EDT Hospital Encounter [facility] [place] [address] [place] [phone] Obdulio Kim MD Discharge Disposition: Home or Self Care 02/08/2025 Telephone General Surgery [facility] [address] [phone] Obdulio Kim MD FORMS/FMLA 01/19/2025 Telephone General Surgery [facility] [address] [phone] Obdulio Kim MD prior auth (02/15/2025 Dr. Kim) from Last 3 Months Immunizations Name Administration [...] Date Site/Laterality Comments SINUS SURGERY 2006 PROCEDURE: [place] UNLISTED PROCEDURE ACCESSORY SINUSES; COMMENT: polyp removed [...] Sign Reading Time Taken Comments Blood Pressure 121/77 04/06/2025 9:44 AM EDT Pulse 68 04/06/2025 9:44 AM EDT Temperature 36.3 ??C (97.4 ??F) 04/06/2025 9:44 AM ED T Respiratory Rate 16 03/22/2025 3:40 PM EDT Oxygen Saturation 98% 03/22/2025 3:40 PM EDT Inhaled Oxygen Concentration - - Weight 90.3 kg (199 lb) 04/06/2025 9:44 AM EDT Height 172.7 cm (5' 8 ) 04/06/2025 9:44 AM EDT Body Mass Index 30.26 04/06/2025 9:44 AM EDT Plan of Treatment Upcoming Encounters Date Type Department Care Team (Late st Contact Info) Description 07/17/2025 3:00 PM EDT Office Visit General Surgery - [place] 175 [facility] [address] [place] [phone] Obdulio Kim MD [address] [address] Health Maintenance Due Date Last Done Comments [...] this topic Medical Devices Implanted Type Area Garnisher Device Identifier Shelf Expiration Date Model / Serial / Lot Mesh 3dmax Lght Lg 4.1x6.2 R 4.1x6.2in - Sn/A - [id number] Implanted:Qty: 1 on 03/22/2025 by Obdulio Kim MD at [facility] Surgical Mesh Sling Implants Right: Abdomen CR BARD - DAVOL DIV 07/12/2029 [id number] / N/A / [id number] Procedures Procedure Name Priority Date/Time Associated Diagnosis Comments TH AN ENDOTRACHEAL(NO CHARGE) Routine 03/22/2025 1:21 PM EDT GA LAP SURG REPR RECURRENT INGUINAL HERNIA 03/22/2025 [...] and Staff Patient location during procedure: OR Resident/EGG TESTER: Rosario Gutierrez CRNA Performed: resident/EGG TESTER/CAA Performed by: Rosario Gutierrez CRNA Authorized by: [...] difficulty assessment: 1 - vent by mask us Bridgette Diaz MD ANESTHESIA ORDERABLES Fin al Result from Last 3 Months Insurance [facility] Advance Directives * Full Code - [...] currently active code status orders. Care Teams Supervisor Nurse Relationship Specialty Start Date End Date Suleiman Foreman MD [address] [place] [phone] PCP - General Family Medicine 01/05/25
== END 2025-04-11 15:08 | disposition home or self-care (01) ==
LOC: HO.HMCFM 14:25
PROVIDERS: PCP Family Medicine; Visit Provider Family Medicine
DX: K82.4 Cholesterolosis of gallbladder (principal); M89.8X9 Other specified disorders of bone, unspecified site; K76.89 Other specified diseases of liver

== ENCOUNTER → 2025-04-11 14:24 | Outpatient (BNVA) | payer BC, SELFPAY | PROVIDERS: PCP Family Medicine; Visit Provider Family Medicine | DX: Z13.89 Encounter for screening for other disorder (principal) ==

== ENCOUNTER → 2025-05-14 09:54 | Outpatient (REF) | payer BC, SELFPAY ==
--- NOTE | ~2025-05-14 | NM_ITS ---
EXAMINATION: NM BONE SCAN WHOLE BODY HISTORY: M89.8X9 - Other specified disorders of bone, unspecified site. Outside abdominal CT scan dated 12/13/2024 describes a 1.6 cm lytic lesion of the right iliac crest. Outside images are not available for direct comparison. TECHNIQUE: A total body bone scan was performed following the intravenous administration of 30 mCi technetium 99m-MDP. COMPARISON: Correlation is made with an MRI of the pelvis dated 03/30/2025. FINDINGS: There is mild symmetric increased activity at the knees, shoulders, and sternoclavicular joints which is likely degenerative in nature. A focus of mildly increased uptake is seen in the left lateral cervical spine which is likely degenerative in nature. The remainder of the visualized osseous structures demonstrate a normal distribution of activity. Specifically, no abnormal pelvic activity is seen. There is normal bilateral renal uptake. WA/WA bone scan whole body IMPRESSION: Probable degenerative uptake involving the knees, shoulders, sternoclavicular joints, and left neck. No abnormal uptake is identified in the pelvis. Correlation with the prior outside CT is recommended. Electronically signed by: Anam Guardado MD 05/14/2025 02:49 PM EDT
--- OUTSIDE RECORDS SUMMARY | 2025-05-14 10:28 | XMS_ITS | Clinical Summary ---
Author Organization 175 [facility] Address [address] [place] [address] Phone Care Team Providers Care President Commercial Bank Name Role Phone Suleiman Foreman MD Primary [...] MRI lumbar and thoracic spine 09/22/2021 at [facility] shows minimal degenerative changes, mild left foraminal L4-5 disc bulging, no significant foraminal or central stenosis at any level. He does not recall where his last C-spine MRI was done, will call us when he gets home and looks at the disc. I did review an old C-spine MRI at [facility] 02/24/13 that showed mild disc bulging at [...] AM EDT Office Visit General Surgery - [address] [phone] Obdulio Kim MD Unilateral recurrent inguinal hernia without obstruction or gangrene (Primary Dx) 03/23/2025 Telephone General Surgery [address] [phone] Leesa Martin MA 03/22/2025 1:02 PM EDT Anesthesia Event [facility] [place] [address] [place] [address] Bridgette Diaz MD Swanson, Mona, FRONT OFFICE REPRESENTATIVE 03/22/2025 12:00 PM EDT - 03/22/2025 2:[address] [facility] OR [address] [place] [phone] Obdulio Kim MD DAVINCI REPAIR RECURRENT RIGHT INGUINAL HERNIA W/ MESH [[id number] (CPT )] 03/22/2025 10:42 AM EDT - 03/22/2025 4:56 PM EDT Hospital Encounter [facility] OR [address] [place] [phone] Obdulio Kim MD Discharge Disposition: Home or Self Care from Last 3 Months Immunizations Name Administration [...] Date Site/Laterality Comments SINUS SURGERY 2006 PROCEDURE: [place] UNLISTED PROCEDURE ACCESSORY SINUSES; COMMENT: polyp removed [...] 68 04/06/2025 9:44 AM EDT Temperature 36.3 C (97.4 F) 04/06/2025 9:44 AM EDT Respiratory Rate 16 03/22/2025 3:40 PM EDT Oxygen Saturation 98% 03/22/2025 3:40 PM EDT Inhaled Oxygen Concentration - - Weight 90.3 kg (199 lb) 04/06/2025 9:44 AM EDT Height 172.7 cm (5' 8 ) 04/06/2025 9:44 AM EDT Body Mass Index 30.26 04/06/2025 9:44 AM EDT Plan of Treatment Upcoming Encounters Date Type Department Care Team ([facility] st Contact Info) Description 07/17/2025 3:00 PM EDT Office Visit General Surgery - [place] 175 [facility] [address] [place] [phone] Obdulio Kim MD 175 [facility] [address] [place] [phone] Health Maintenance Due Date Last Done Comments [...] this topic Medical Devices Implanted Type Area Safety Relief Valve Technician Device Identifier Shelf Expiration Date Model / Serial / Lot Mesh 3dmax Lght Lg 4.1x6.2 R 4.1x6.2in - Sn/A - [id number] Implanted:Qty: 1 on 03/22/2025 by Obdulio Kim MD at [facility] Surgical Mesh Sling Implants Right: Abdomen CR BARD - DAVOL DIV 07/12/2029 [id number] / N/A / [id number] Procedures Procedure Name Priority Date/Time Associated Diagnosis Comments TH AN ENDOTRACHEAL(NO CHARGE) Routine 03/22/2025 1:21 PM EDT [place] LAP SURG REPR RECURRENT INGUINAL HERNIA 03/22/2025 1:02 PM EDT Unilateral recurrent inguinal hernia without obstruction or gangrene Special Needs Robotic repair recurrent right inguinal hernia w/mesh asking 90 minutes for this case from Last 3 Months Results * TH AN ENDOTRACHEAL(NO CHARGE) (03/22/2025 1:21 PM EDT) Rosairo Fuentes CRNA - 03/22/2025 1:21 PM EDT Rosario Gutierrez CRNA 03/22/2025 1:21 PM General Information and Staff Patient location during procedure: OR Resident/FRONT OFFICE REPRESENTATIVE: Rosario Gutierrez CRNA Performed: resident/FRONT OFFICE REPRESENTATIVE/CAA Performed by: Rosario Gutierrez CRNA Authorized by: [...] al Result from Last 3 Months Insurance [facility] [[email or web address]] Advance Directives * Full Code - Default [...] currently active code status orders. Care Teams President Commercial Bank Relationship Specialty Start Date End Date Suleiman Foreman MD [address] [place] [phone] PCP - General Family Medicine 01/05/25
== END ==
LOC: HO.NUCMED 09:54
PROVIDERS: PCP Family Medicine; Visit Provider Family Medicine
DX: M89.8X9 Other specified disorders of bone, unspecified site (principal)
CPT/HCPCS: 78306; A9503

== ENCOUNTER → 2025-05-14 09:58 | Outpatient (BNV) | payer BC, SELFPAY | PROVIDERS: PCP Family Medicine; Visit Provider Radiology Diagnostic Radiology | DX: M89.8X9 Other specified disorders of bone, unspecified site (principal) | CPT/HCPCS: 78306 ==

== ENCOUNTER 2025-07-02 15:21 | Outpatient (AMB) | payer BC, SELFPAY ==
--- OUTSIDE RECORDS SUMMARY | 2025-07-02 15:54 | XMS_ITS | Encounter Summary ---
Author Organization [facility] Address [address] [place] [address] Care Team Providers Care Turbogenerator Operator Name Role Phone Suleiman Foreman MD Primary Care Provider [phone] Encounter Details Date Type Department Care Team (Late Contact Info) Description 05/14/2025 Lab Requisition [facility] - Main Lab [address] [facility] [place] [address] Marco Bullock PA [address] [place] [address] Testicular hypofunction Social History Tobacco Use Types Packs/Day Years [...] PM EDT Office Visit General Surgery - [place] 175 [facility] [address] [place] [address] Obdulio Kim MD 175 [facility] [address] [place], [place] [phone] documented as of this encounter Procedures Procedure Name Priority Date/Time Associated Diagnosis Comments COMPLETE BLOOD COUNT Routine 05/14/2025 11:12 AM EDT Testicular hypofunction documented in this encounter Results * Complete blood count (05/14/2025 11:12 AM EDT) [facility] Signature WBC 5.3 4.8 - 10.8 K/mcL LAB HEMETOLOGY METHOD 05/14/2025 1:48 PM EDT [facility] RBC 4.90 4.50 - 5.50 M/mcL LAB HEMETOLOGY METHOD 05/14/2025 1:48 PM EDT [facility] Hemoglobin 14.9 13.5 - 17.5 g/dL LAB HEMETOLOGY METHOD 05/14/2025 1:48 PM EDT [facility] Hematocrit 44.4 42.0 - 54.0 % LAB HEMETOLOGY METHOD 05/14/2025 1:48 PM EDT [facility] MCV 91.4 79.0 - 98.0 FL LAB HEMETOLOGY METHOD 05/14/2025 1:48 PM EDT [facility] MCH 30.7 27.0 - 32.0 pcg LAB HEMETOLOGY METHOD 05/14/2025 1:48 PM EDT [facility] MCHC 33.6 32.0 - 37.0 g/dL LAB HEMETOLOGY [facility] RDW 12.4 11.0 - 15.0 % LAB HEMETOLOGY METHOD 05/14/2025 1:48 PM EDT [facility] Platelets 181 130 - 400 K/mcL LAB H[facility]OLOGY METHOD [facility] MPV 11.0 7.0 - 11.0 FL LAB HEMETOLOGY METHOD 05/14/2025 1:48 PM EDT [facility] NRBC 0.0 <1.0 % LAB HEMETOLOGY METHOD 05/14/2025 1:48 PM EDT [facility] NRBC Absolute 0.00 <0.10 K/mcL LAB HEMETOLOGY METHOD 05/14/2025 1:48 PM EDT [facility] Blood Venous blood specimen / Unknown 05/14/2025 11:12 AM EDT 05/14/2025 1:13 PM EDT us Marco R Kobe ZEP[facility]A LAB BLOOD ORDERABLES Final Res ult [facility] [address] [place] [address], documented in this encounter Visit Diagnoses Diagnosis Testicular hypofunction Other testicular hypofunction documented in this encounter Care Teams Turbogenerator Operator Relationship Specialty Start Date End Date Suleiman Foreman MD [address] [place] [phone] PCP - General Family Medicine 01/05/25 documented as of this encounter
== END 2025-07-02 15:27 | disposition home or self-care (01) ==
LOC: HO.HMGAL 15:21
PROVIDERS: PCP Family Medicine; Visit Provider Registered Nurse Emergency
DX: J30.89 Other allergic rhinitis (principal)
CPT/HCPCS: 95117; 95165

== ENCOUNTER 2025-07-25 07:45 | Outpatient (REF) | payer BC, SELFPAY ==
--- NOTE | ~2025-07-25 | US_ITS ---
EXAMINATION: US ABDOMEN LIMITED HISTORY: K76.89 - Other specified diseases of liver TECHNIQUE: Real-time grayscale ultrasound imaging of the right upper quadrant was performed and images were reviewed. COMPARISON: Comparison is made with the prior examination dated 02/05/2025. FINDINGS: Liver: The right lobe of the liver measures 13.9 cm in size. The left lobe of the liver measures 9.2 cm in size. The liver demonstrates coarsened echotexture. Again seen is a 1.0 x 1.0 x 1.3 cm cyst in the right lobe. No intrahepatic biliary ductal dilatation is identified. There is normal hepatopedal flow in the portal vein. Gallbladder and biliary tree: There are tiny polyps in the gallbladder wall. The gallbladder is otherwise unremarkable, without evidence of calculi, wall thickening, or pericholecystic fluid. There is no sonographic Benitez sign. The common bile duct is normal in caliber measuring 6 mm. Right Kidney: The right kidney measures 11.6 cm in length. The right kidney is unremarkable, without evidence of masses, hydronephrosis, or calculi. Pancreas: The pancreas is obscured by bowel gas. Abdominal aorta and inferior vena cava: The visualized portions of the abdominal aorta and inferior vena cava are normal in caliber. There is no free fluid in the right upper quadrant. US/US abdomen limited IMPRESSION: 1. 1.3 cm hepatic cyst. 2. Tiny gallbladder polyps. 3. The pancreas is obscured by bowel gas. Electronically signed by: Anam Guardado MD 07/25/2025 08:26 AM EDT
--- OUTSIDE RECORDS SUMMARY | 2025-07-25 07:48 | XMS_ITS | Encounter Summary ---
Author Organization [facility] Address [address] [place] [address] Care Team Providers Care Sales Attendant Building Materials Name Role Phone Suleiman Foreman MD Primary Care Provider Encounter Details Date Type Department Care Team (Late st Contact Info) Description 05/14/2025 Lab Requisition [facility] - Main Lab [address] [facility] [place] [address] Marco Bullock, KATELYN [address] [place] [address] Testicular hypofunction Social History Tobacco [...] as of this encounter Plan of Treatment Not on file documented as of this encounter Procedures Procedure Name Priority Date/Time Associated Diagnosis Comments COMPLETE BLOOD COUNT Routine 05/14/2025 11:12 AM EDT Testicular hypofunction documented in this encounter Results * Complete blood count (05/14/2025 11:12 AM EDT) WBC 5.3 4.8 - 10.8 K/[facility] LAB HEMETOLOGY METHOD 05/14/2025 1:48 PM EDT [facility] LAB RBC 4.90 4.50 - 5.50 M/mcL LAB HEMETOLOGY METHOD 05/14/2025 1:48 PM EDT [facility] LAB Hemoglobin 14.9 13.5 - 17.5 g/dL LAB HEMETOLOGY METHOD 05/14/2025 1:48 PM EDT [facility] LAB Hematocrit 44.4 42.0 - 54.0 % LAB HEMETOLOGY METHOD 05/14/2025 1:48 PM EDT [facility] LAB MCV 91.4 79.0 - 98.0 FL LAB HEMETOLOGY METHOD 05/14/2025 1:48 PM EDT [facility] LAB MCH 30.7 27.0 - 32.0 pcg LAB HEMETOLOGY METHOD 05/14/2025 1:48 PM EDT [facility] LAB MCHC 33.6 32.0 - 37.0 g/dL LAB HEMETOLOGY METHOD 05/14/2025 1:48 PM EDT [facility] LAB RDW 12.4 11.0 - 15.0 % LAB HEMETOLOGY METHOD 05/14/2025 1:48 PM EDT [facility] LAB Platelets 181 130 - 400 K/mcL LAB HEMETOLOGY METHOD 05/14/2025 1:48 PM EDT [facility] LAB MPV 11.0 7.0 - 11.0 FL LAB HEMETOLOGY METHOD 05/14/2025 1:48 PM EDT [facility] LAB NRBC 0.0 <1.0 % LAB HEMETOLOGY METHOD 05/14/2025 1:48 PM EDT [facility] LAB NRBC Absolute 0.00 <0.10 K/mcL LAB HEMETOLOGY [facility]/14[facility] Blood Venous blood specimen / Unknown 05/14/2025 11:12 AM EDT 05/14/2025 1:13 PM EDT Marco ZEPEDA LAB BLOOD ORDERABLES Final Res [facility] ([facility]) [facility] LAB [address] [place] [address], documented in this encounter Visit Diagnoses Diagnosis Testicular hypofunction Other testicular hypofunction documented in this encounter Care Teams Sales Attendant Building Materials Relationship Specialty Start Date End Date Suleiman Foreman MD [address] [place] [address] Dr Ruvalcaba [place] PCP - General Family Medicine 07/17/25 documented as of this encounter
--- OUTSIDE RECORDS SUMMARY | 2025-07-25 07:48 | XMS_ITS | Clinical Summary ---
Author Organization 175 [facility] Address [address] [place] [address] Phone Care Team Providers Care Trans Router Name Role Phone Suleiman Foreman MD Primary [...] MRI lumbar and thoracic spine [place] [facility] [place] degenerative changes, mild left foraminal L4-5 disc bulging, no significant foraminal or central stenosis at any level. He does not recall where his last C-spine MRI was done, will call us when he gets home and looks at the disc. I did review an old C[place]spine MRI [place] [facility] [place] that showed mild disc bulging at [...] Encounters Date Type Department Care Team Description 07/17/2025 3:00 PM EDT Office Visit General Surgery - [place] [address] [facility] [address] [place] [address] Obdulio Kim MD Unilateral recurrent inguinal hernia without obstruction or gangrene (Primary Dx) 05/14/2025 Lab Requisition [facility] - Main Lab [address] [facility] [place] [address] Marco Bullock PA Testicular hypofunction from Last 3 Months Immunizations Name Administration [...] Date Site/Laterality Comments SINUS SURGERY 2006 PROCEDURE: [place] UNLISTED PROCEDURE ACCESSORY SINUSES; COMMENT: polyp removed [...] Sign Reading Time Taken Comments Blood Pressure 151/88 07/17/2025 2:49 PM EDT Pulse 63 07/17/2025 2:49 PM EDT Temperature 36.3 C (97.4 F) 04/06/2025 9:44 AM EDT Respiratory Rate 16 03/22/2025 3:40 PM EDT Oxygen Saturation 98% 03/22/2025 3:40 PM EDT Inhaled Oxygen Concentration - - Weight 92.5 kg (204 lb) 07/17/2025 2:49 PM EDT Height 172.7 cm (5' 8 ) 07/17/2025 2:49 PM EDT Body Mass Index 31.02 07/17/2025 2:49 PM EDT Plan of Treatment Health Maintenance Due Date Last Done Comments Hepatitis B Vaccines (1 of 3 - 19+ 3-dose series) 1986 Pneumococcal Vaccine: 50+ Years (1 of 1 - PCV) 2017 Cholesterol Screening (Lipid Panel) 10/14/2022 Colorectal Cancer Screening: Colonoscopy 10/14/2022 HIV Screening 10/14/2022 Hepatitis C Screening 10/14/2022 Social Influencers of Health Screening 10/14/2022 Zoster Vaccines (2 of 2) 02/15/2023 12/21/2022 Depression Screening 11/15/2024 COVID-19 Vaccine ( - season) 2025 09/13/2022, 10/05/2021, 03/12/2021, Additional history exists Influenza Vaccine (#1) 2025 , 08/26/2023, 09/13/2022, Additional history exists DTaP,Tdap,and Td Vaccines (2 - Td or Tdap) 04/26/2034 04/26/2024 HIB Vaccines Aged Out No longer eligi [...] this topic Medical Devices Implanted Type Area Dobby Loom Weaver Device Identifier Shelf Expiration Date Model / Serial / Lot Mesh 3dmax Lght Lg 4.1x6.2 R 4.1x6.2in - Sn/A - [id number] Implanted:Qty: 1 on 03/22/2025 by Obdulio Kim MD at [facility] Surgical Mesh Sling Implants Right: Abdomen CR BARD - DAVOL DIV 07/12/2029 [id number] / N/A / [id number] Procedures Procedure Name Priority Date/Time Associated Diagnosis Comments COMPLETE BLOOD COUNT Routine 05/14/2025 11:12 AM EDT Testicular hypofunction from Last 3 Months Results * Complete blood count (05/14/2025 11:12 AM EDT) WBC 5.3 4.8 - 10.8 K/mcL LAB HEMETOLOGY METHOD 05/14/2025 1:48 PM EDT [facility] LAB RBC 4.90 4.50 - 5.50 M/mcL LAB HEMETOLOGY METHOD 05/14/2025 1:48 PM EDT [facility] LAB Hemoglobin 14.9 13.5 - 17.5 g/dL LAB HEMETOLOGY METHOD 05/14/2025 1:48 PM EDT [facility] LAB Hematocrit 44.4 42.0 - 54.0 % LAB HEMETOLOGY METHOD 05/14/2025 1:48 PM EDT [facility] LAB MCV 91.4 79.0 - 98.0 FL LAB HEMETOLOGY METHOD [facility]/14[facility]25 [facility] MCH 30.7 27.0 - 32.0 pcg LAB HEMETOLOGY METHOD 05/14/2025 [facility] MCHC 33.6 32.0 - 37.0 g/dL LAB HEMETOLOGY METHOD 05/14/2025 1:48 PM EDT [facility] LAB RDW 12.4 11.0 - 15.0 % LAB HEMETOLOGY METHOD 05/14/2025 1:48 PM EDT [facility] LAB Platelets 181 130 - 400 K/mcL LAB HEMETOLOGY METHOD 05/14/2025 1:[facility] MPV 11.0 7.0 - 11.0 FL LAB HEMETOLOGY METHOD 05/14/2025 1:48 PM EDT [facility] LAB NRBC 0.0 <1.0 % LAB HEMETOLOGY METHOD 05/14/2025 1:48 PM EDT [facility] LAB NRBC Absolute 0.00 <0.10 K/mcL LAB HEMETOLOGY METHOD 05/14/2025 1:48 PM EDT [facility] LAB Blood Venous blood specimen / Unknown 05/14/2025 11:12 AM EDT 05/14/2025 1:13 PM EDT us Marco ZEPEDA LAB BLOOD ORDERABLES Final Res ult [facility]) [facility] LAB [address] [place] [address], from Last 3 Months Insurance [facility] Advance Directives * Full Code - [...] currently active code status orders. Care Teams Trans Router Relationship Specialty Start Date End Date Suleiman Foreman MD [address] [place] [address] Dr Pete [place] PCP - General Family Medicine 07/17/25
== END 2025-07-25 07:46 | disposition home or self-care (01) ==
LOC: HO.US 07:45
PROVIDERS: PCP Family Medicine; Visit Provider Family Medicine
DX: K76.89 Other specified diseases of liver (principal); K82.4 Cholesterolosis of gallbladder
CPT/HCPCS: 76705

== ENCOUNTER → 2025-07-25 07:47 | Outpatient (BNV) | payer BC, SELFPAY | PROVIDERS: PCP Family Medicine; Visit Provider Radiology Diagnostic Radiology | DX: K76.89 Other specified diseases of liver (principal) | CPT/HCPCS: 76705 ==

== ENCOUNTER 2025-07-30 15:14 | Outpatient (AMB) | payer BC, SELFPAY ==
--- OUTSIDE RECORDS SUMMARY | 2025-07-30 20:42 | XMS_ITS | Encounter Summary ---
Author Organization [facility] Address [address] [place] [address] Care Team Providers Care Lamp Shades Supervisor Name Role Phone Suleiman Foreman MD Primary Care Provider [phone] Encounter Details Date Type Department Care Team (Late st Contact Info) Description 05/14/2025 Lab Requisition [facility] - Main Lab [address] [facility] [place] [address] Marco Bullock, KATELYN [address] [place] [address] Testicular hypofunction Social History Tobacco [...] AM EDT) WBC 5.3 4.8 - 10.8 K/[facility] LAB HEMETOLOGY METHOD 05/14/2025 1:48 PM EDT [facility] ([facility] LAB RBC 4.90 4.50 - 5.50 M/mcL LAB HEMETOLOGY METHOD 05/14/2025 1:[address] [facility] LAB Hemoglobin 14.9 13.5 - 17.5 g/dL LAB HEMETOLOGY METHOD 05/14/2025 1:[address] [facility] LAB Hematocrit 44.4 42.0 - 54.0 % LAB HEMETOLOGY METHOD 05/14/2025 1:[address] [facility] LAB MCV 91.4 79.0 - 98.0 FL LAB HEMETOLOGY METHOD 05/14/2025 1:[address] [facility] LAB MCH 30.7 27.0 - 32.0 pcg LAB HEMETOLOGY METHOD 05/14/2025 1:[address] [facility] LAB MCHC 33.6 32.0 - 37.0 g/dL LAB HEMETOLOGY METHOD 05/14/2025 1:[address] [facility] LAB RDW 12.4 11.0 - 15.0 % LAB HEMETOLOGY METHOD 05/14/2025 1:[address] [facility] LAB Platelets 181 130 - 400 K/mcL LAB HEMETOLOGY METHOD 05/14/2025 1:[address] [facility] LAB MPV 11.0 7.0 - 11.0 FL LAB HEMETOLOGY METHOD 05/14/2025 1:[address] [facility] LAB NRBC 0.0 <1.0 % LAB HEMETOLOGY METHOD 05/14/2025 1:[address] [facility] LAB NRBC Absolute 0.00 <0.10 K/mcL LAB HEMETOLOGY METHOD 05/14[facility]25 [facility] Blood Venous blood specimen / Unknown 05/14/2025 11:12 AM EDT 05/14/2025 1:13 PM EDT Marco ZEPEDA LAB BLOOD ORDERABLES Final Res [facility] ([facility]) [facility] LAB [address] [place] [address], documented in this encounter Visit Diagnoses Diagnosis Testicular hypofunction Other testicular hypofunction documented in this encounter Care Teams Lamp Shades Supervisor Relationship Specialty Start Date End Date Suleiman Foreman MD [address] [place] [address] Dr Ruvalcaba [place] PCP - General Family Medicine 07/17/25 documented as of this encounter
--- OUTSIDE RECORDS SUMMARY | 2025-07-30 20:42 | XMS_ITS | Clinical Summary ---
Author Organization 175 [facility] Address [address] [place] [address] Phone Care Team Providers Care Relationship Management Lead Name Role Phone Suleiman Foreman MD Primary [...] MRI lumbar and [place] [facility] [place] degenerative changes, mild left foraminal L4-5 disc bulging, no significant foraminal or central stenosis at any level. He does not recall where his last C-spine MRI was done, will call us when he gets home and looks at the disc. I did review an old C[place]spine MRI [place] [facility] [place] that showed mild disc bulging at [...] PM EDT Office Visit General Surgery - [place] [address] [facility] [address] [place] [address] Obdulio Kim MD Unilateral recurrent inguinal hernia without obstruction or gangrene (Primary Dx) 05/14/2025 Lab Requisition [facility] - Main Lab 299 [facility] [place] [address] Marco Bullock PA Testicular hypofunction [...] Date Site/Laterality Comments SINUS SURGERY 2006 PROCEDURE: [place] UNLISTED PROCEDURE ACCESSORY SINUSES; COMMENT: polyp removed [...] this topic Medical Devices Implanted Type Area Scientist Propagator Device Identifier Shelf Expiration Date Model / Serial / Lot Mesh 3dmax Lght Lg 4.1x6.2 R 4.1x6.2in - Sn/A - [id number] Implanted:Qty: 1 on 03/22/2025 by Obdulio Kim MD at [facility] Surgical Mesh Sling Implants Right: Abdomen CR BARD - DAVOL DIV 07/12/2029 [id number] / N/A / [id number] Procedures Procedure Name Priority Date/Time Associated Diagnosis Comments COMPLETE BLOOD COUNT Routine 05/14/2025 11:12 AM EDT Testicular hypofunction from Last 3 Months Results * Complete blood count (05/14/2025 11:12 AM EDT) WBC 5.3 4.8 - 10.8 K/mcL LAB HEMETOLOGY METHOD 05/14/2025 1:48 PM EDT [facility] LAB RBC 4.90 4.50 - 5.50 M/mcL LAB HEMETOLOGY METHOD 05/14/2025 1:48 PM EDT [facility] LAB Hemoglobin 14.9 13.5 - 17.5 g/dL LAB HEMETOLOGY METHOD 05/14/2025 1:48 PM EDT [facility] LAB Hematocrit 44.4 42.0 - 54.0 % LAB HEMETOLOGY METHOD 05/14/2025 1:48 PM EDT [facility] LAB MCV 91.4 79.0 - 98.0 FL LAB HEMETOLOGY METHOD [facility]/14[facility]2025 [facility] MCH 30.7 27.0 - 32.0 pcg LAB HEMETOLOGY METHOD 05/14/2025 1:[facility] MCHC 33.6 32.0 - 37.0 g/dL LAB HEMETOLOGY METHOD 05/14/2025 1:48 PM EDT [facility] LAB RDW 12.4 11.0 - 15.0 % LAB HEMETOLOGY METHOD 05/14/2025 1:48 PM EDT [facility] LAB Platelets 181 130 - 400 K/mcL LAB HEMETOLOGY METHOD 05/14/2025 1:[facility] MPV 11.0 7.0 - 11.0 FL LAB HEMETOLOGY METHOD 05/14/2025 1:48 PM EDT [facility] LAB NRBC 0.0 <1.0 % LAB HEMETOLOGY METHOD 05/14/2025 1:48 PM EDT [facility] LAB NRBC Absolute 0.00 <0.10 K/mcL LAB HEMETOLOGY METHOD 05/14/2025 1:48 PM EDT [facility] LAB Blood Venous blood specimen / Unknown 05/14/2025 11:12 AM EDT 05/14/2025 1:13 PM EDT us Marco ZEPEDA LAB BLOOD ORDERABLES Final Res ult [facility]) [facility] LAB [address] [place] [address], from Last 3 Months Insurance [facility] Advance Directives * Full Code - Default [...] currently active code status orders. Care Teams Relationship Management Lead Relationship Specialty Start Date End Date Suleiman Foreman MD [address] [place] [address] Dr Pete [place] PCP - General Family Medicine 07/17/25
== END 2025-07-30 15:15 | disposition home or self-care (01) ==
LOC: HO.HMGAL 15:15
PROVIDERS: PCP Family Medicine; Visit Provider Registered Nurse Emergency
DX: J30.89 Other allergic rhinitis (principal)
CPT/HCPCS: 95117; 95165

== ENCOUNTER 2025-07-31 14:34 | Outpatient (AMB) | payer BC, SELFPAY ==
--- NOTE | 2025-07-31 14:38 | MHC.PC.OV ---
Vital Signs 07/31/25 14:42 Height 5 ft 8 in Weight 202 lb BMI 30.7 BP 120/70 Blood Pressure Location Rt brachial Position Sitting Respiration 12 Pulse 58 Pulse Source Pulse Oximeter Temp 97.6 F Temp Source Temporal Artery Scan Pulse Oximetry (%) 96 Oxygen Delivery Method Room Air Intake Visit Reasons: f/u abd. ultrasound Intake Note: Venancio presents in the office today for a follow up to his abdomen ultrasound. Allergies acetaminophen (Percocet) Allergy (Unknown, Verified 07/31/25 14:40) NAUSEA/TINGLING FACE oxycodone (Percocet) Allergy (Unknown, Verified 07/31/25 14:40) NAUSEA/TINGLING FACE penicillin V Allergy (Unknown, Verified 07/31/25 14:40) DIARRHEA Sulfa (Sulfonamide Antibiotics) Allergy (Unknown, Verified 07/31/25 14:40) rash Sulfacet-R Allergy (Unknown, Uncoded 07/31/25 14:40) rash Tobacco use date assessed: 07/31/25 Dental Screening Dental Screen Date: 07/31/25 Did you have a dental visit in the last 12 months?: Yes Did you have a dental problem in the last 6 months where you did not have access to dental care?: No Was dental information given to patient?: Patient has dentist HPI f/u abd. ultrasound HPI Details 59 y/o male presents to review bone scan to evaluate lytic lesion. Liver?cysts?again?seen?on?MRI Some?septated?cysts. No?enhancing?lesions Ultrasound?had?recommended?six-month?follow-up?which showed: Bone scan showed no uptake in the region of interest No lytic lesion seen on MRI either No further workup necessary Has complaints of ongoing carpal tunnel syndrome. HPI Comments History of Present Illness Details Documentation assistance for Suleiman Foreman MD, was provided by Dell Leyva,? Legal Process Specialist on at 2:47 PM EST. I, Dr. Foreman, have read, observed, and verified documentation. ? PFSH Medical History Celiac disease Chronic musculoskeletal pain Hx of Lyme disease Polyarthralgia Surgical History H/O sinus surgery H/O neck surgery Hx of hernia repair Family History Mother Pancreatic cancer Father No problems noted. 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 Current occupational exposures/hazards: No Cognitive needs: No Hearing needs: No Vision needs: Yes Questionnaire Thrive Questionnaire Date Thrive assessed: 12/27/24 I am a: Patient What is your living situation today?: I have a steady place to live Within the past 12 months, did the food you bought not last and you didn't have the money to get more?: Never true Within the past 12 months, did you worry whether your food would run out before you got money to buy more?: Never true Do you have trouble paying for medicines?: No Do you have trouble getting transportation to medical appointments?: No Do you have trouble paying your heating and electricity bill?: No Do you have trouble taking care of your child, family member or friend?: No Do you have trouble with day-to-day activities such as bathing, preparing meals, shopping, managing finances, etc.?: No Are you currently unemployed and looking for a job?: No Are you interested in more education?: No Please select the resources that you would like help with: None Currently or been in a relationship where the following occur: No concerns reported THRIVE Score: 0 LINDA-7 AMB Questionnaire LINDA-7 Date LINDA - 7 assessed: 02/07/25 Source: Developed by Drs. Anam Campbell, Radha Nava, Toni Arana and colleagues, with an educational lin from [employer]. Review of Systems Const Denies chills, Denies fatigue, Denies fever(s), Denies headache(s) and Denies weakness ENT Denies dizziness and Denies headache(s) Card Denies dyspnea Resp Denies cough, Denies dyspnea, Denies wheezing and Denies other (shortness of breath) Musc Denies numbness and Denies tingling Neuro Denies dizziness, Denies headache(s), Denies numbness, Denies tingling and Denies weakness Psych Denies anxiety and Denies depression Endo Denies fatigue Aller/Immun Denies wheezing Physical exam (Primary Care) Vital Signs: Last Vital Signs Temp 97.6 F 07/31/25 14:42 Pulse 58 07/31/25 14:42 Resp 12 07/31/25 14:42 BP 120/70 07/31/25 14:42 Pulse Ox 96 07/31/25 14:42 Oxygen Delivery Method Room Air 07/31/25 14:42 BMI result Body Mass Index 30.7 Tobacco/Smoking Status: Tobacco use Status Tobacco use date assessed 07/31/25 07/31/25 14:45 Patient Tobacco Use Status Never used Tobacco 07/31/25 14:42 e-Cigarette/Vaping Use Never Used 07/31/25 14:42 Thrive Assessment: Date of Thrive Assessment Date Thrive assessed 12/27/24 07/31/25 14:40 Currently or been in a relationship where the following occur: No concerns reported Const General: well developed; No acute distress Nutritional Appearance: well nourished Orientation/consciousness: patient oriented x3 HENMT Head: Yes normocephalic and Yes atraumatic Eyes General: appearance normal, both eyes and all related structures Pupils: Equal, round and reactive pupils present EOM: EOMs intact bilaterally Resp Effort & Inspection: normal respiratory effort Neuro General: patient oriented x3 and gait normal Cranial nerves: Yes Equal, round and reactive pupils present Psych Affect: normal affect Coding Level of Care Code Est Pt Level 4 (12988) Diagnoses Liver cyst K76.89 Lytic lesion of bone on x-ray M89.8X9 Carpal tunnel syndrome G56.00 Assessment & Plan Assessment & Plan (1) Liver cyst: Code(s): K76.89 - Other specified diseases of liver Category: Medical Plan: Stable appearance of liver cysts on ultrasound Patient would like a 12 month follow-up Ordered (2) Lytic lesion of bone on x-ray: Code(s): M89.8X9 - Other specified disorders of bone, unspecified site Category: Medical Plan: Prior x-ray had shown what appeared to be a lytic lesion of bone and pelvic crest This was not seen on MRI and recent bone scan does not show any uptake No further workup required (3) Carpal tunnel syndrome: Code(s): G56.00 - Carpal tunnel syndrome, unspecified upper limb Category: Medical Plan: Carpal tunnel bilaterally and patient also notes neck and shoulder pain bilaterally Referred to [facility] Plan Patient also has a lipoma at right anterior wrist Soft, fluctuant and mobile. Down ganglion cyst. He can discuss with ortho at his visit Orders: Orders Complete Blood Count Auto Diff Today Z00.00 - Encounter for general adult medical examination without abnormal findings UA CC w/rflx Micro + Cult Today Z00.00 - Encounter for general adult medical examination without abnormal findings TSH reflex Free T4 Today Z00.00 - Encounter for general adult medical examination without abnormal findings IRON PROFILE Today Z00.00 - Encounter for general adult medical examination without abnormal findings Comprehensive [place]. Panel Fast Today Z00.00 - Encounter for general adult medical examination without abnormal findings Lipid Panel Today Z00.00 - Encounter for general adult medical examination without abnormal findings Microalbumin, Random (w Creat) Today I10 - Essential (primary) hypertension Prostate Specific Antigen Scr Today Z12.5 - Encounter for screening for malignant neoplasm of prostate US abdomen limited 11 Months K76.89 - Other specified diseases of liver Referrals Orthopedics Referral G56.00 - Carpal tunnel syndrome, unspecified upper limb, M25.511 - Pain in right shoulder, M25.512 - Pain in left shoulder, M79.641 - Pain in right hand, M79.642 - Pain in left hand
[2025-07-31 14:42] VITALS: BP 120/70; PULSE 58; RESP 12; TEMP 36.4; O2SAT 96; BMI 30.7
--- OUTSIDE RECORDS SUMMARY | 2025-07-31 18:17 | XMS_ITS | Encounter Summary ---
Author Organization [facility] Address [address] [place] [address] Care Team Providers Care Drafting Clerk Name Role Phone Suleiman Foreman MD Primary Care Provider Encounter Details Date Type Department Care Team (Late st Contact Info) Description 05/14/2025 Lab Requisition [facility] - Main Lab [address] [facility] [place] [address] Marco Bullock, KATELYN [address] [place] [address] Testicular hypofunction Social History Tobacco [...] AM EDT) WBC 5.3 4.8 - 10.8 K/[facility] LAB HEMETOLOGY METHOD 05/14/2025 1:48 PM EDT [facility] RBC 4.90 4.50 - 5.50 M/mcL LAB HEMETOLOGY METHOD 05/14/2025 1:48 PM EDT [facility] LAB Hemoglobin 14.9 13.5 - 17.5 g/dL LAB HEMETOLOGY METHOD 05/14/2025 1:48 PM EDT [facility] LAB Hematocrit 44.4 42.0 - 54.0 % LAB HEMETOLOGY METHOD 05/14/2025 1:48 PM EDT [facility] LAB MCV 91.4 79.0 - 98.0 FL LAB HEMETOLOGY METHOD 05/14/2025 1:48 PM EDT [facility] LAB MCH 30.7 27.0 - 32.0 pcg LAB HEMETOLOGY METHOD 05/14/2025 1:48 PM EDT [facility] LAB MCHC 33.6 32.0 - 37.0 g/dL LAB HEMETOLOGY METHOD 05/14/2025 1:48 PM EDT [facility] LAB RDW 12.4 11.0 - 15.0 % LAB HEMETOLOGY METHOD 05/14/2025 1:48 PM EDT [facility] LAB Platelets 181 130 - 400 K/mcL LAB HEMETOLOGY METHOD 05/14/2025 1:48 PM EDT [facility] LAB MPV 11.0 7.0 - 11.0 FL LAB HEMETOLOGY METHOD 05/14/2025 1:48 PM EDT [facility] LAB NRBC 0.0 <1.0 % LAB HEMETOLOGY METHOD 05/14/2025 1:48 PM EDT [facility] LAB NRBC Absolute 0.00 <0.10 K/mcL LAB HEMETOLOGY METHOD [facility] Blood Venous blood specimen / Unknown 05/14/2025 11:12 AM EDT 05/14/2025 1:13 PM EDT Marco ZEPEDA LAB BLOOD ORDERABLES Final [facility] LAB [address] [place] [address], documented in this encounter Visit Diagnoses Diagnosis Testicular hypofunction Other testicular hypofunction documented in this encounter Care Teams Drafting Clerk Relationship Specialty Start Date End Date Suleiman Foreman MD [address] [place] [address] Dr Ruvalcaba Newell [place] PCP - General Family Medicine 07/17/25 documented as of this encounter
--- OUTSIDE RECORDS SUMMARY | 2025-07-31 18:17 | XMS_ITS | Clinical Summary ---
Author Organization 175 [facility] Address [address] [place] [address] Phone Care Team Providers Care Mailing Clerk Name Role Phone Suleiman Foreman MD [...] MRI lumbar and thoracic spine 09/22/2021 at [facility] shows minimal degenerative changes, mild left foraminal L4-5 disc bulging, no significant foraminal or central stenosis at any level. He does not recall where his last C-spine MRI was done, will call us when he gets home and looks at the disc. I did review an old C-spine MRI at [facility] 02/24/13 that showed mild disc bulging at [...] PM EDT Office Visit General Surgery - [place] [address] [facility] [address] [place] [address] Obdulio Kim MD Unilateral recurrent inguinal hernia without obstruction or gangrene (Primary Dx) 05/14/[address] [facility] - Main Lab [address] [facility] [place] [address] Marco Bullock PA Testicular hypofunction [...] Date Site/Laterality Comments SINUS SURGERY 2006 PROCEDURE: [place] UNLISTED PROCEDURE ACCESSORY SINUSES; COMMENT: polyp removed [...] this topic Medical Devices Implanted Type Area Negative Restorer Device Identifier Shelf Expiration Date Model / Serial / Lot Mesh 3dmax Lght Lg 4.1x6.2 R 4.1x6.2in - Sn/A - [id number] Implanted:Qty: 1 on 03/22/2025 by Obdulio Kim MD at [facility] Surgical Mesh Sling Implants Right: Abdomen CR BARD - DAVOL DIV 07/12/2029 [id number] / N/A / [id number] Procedures Procedure Name Priority Date/Time Associated Diagnosis Comments COMPLETE BLOOD COUNT Routine 05/14/2025 11:12 AM EDT Testicular hypofunction from Last 3 Months Results * Complete blood count (05/14/2025 11:12 AM EDT) WBC 5.3 4.8 - 10.8 K/mcL LAB HEMETOLOGY METHOD 05/14/2025 1:48 PM EDT [facility] LAB RBC 4.90 4.50 - 5.50 M/mcL LAB HEMETOLOGY METHOD 05/14/2025 1:48 PM EDT [facility] LAB Hemoglobin 14.9 13.5 - 17.5 g/dL LAB HEMETOLOGY METHOD 05/14/2025 1:48 PM EDT [facility] LAB Hematocrit 44.4 42.0 - 54.0 % LAB HEMETOLOGY METHOD 05/14/2025 1:48 PM EDT [facility] LAB MCV 91.4 79.0 - 98.0 FL LAB HEMETOLOGY METHOD [facility] MCH 30.7 27.0 - 32.0 pcg LAB HEMETOLOGY METHOD 05/14/2025 [facility] MCHC 33.6 32.0 - 37.0 g/dL LAB HEMETOLOGY METHOD 05/14/2025 1:48 PM EDT [facility] LAB RDW 12.4 11.0 - 15.0 % LAB HEMETOLOGY METHOD 05/14/2025 1:48 PM EDT [facility] LAB Platelets 181 130 - 400 K/mcL LAB HEMETOLOGY METHOD 05/14/2025 1[facility] MPV 11.0 7.0 - 11.0 FL LAB HEMETOLOGY METHOD 05/14/2025 1:48 PM EDT [facility] LAB NRBC 0.0 <1.0 % LAB HEMETOLOGY METHOD 05/14/2025 1:48 PM EDT [facility] LAB NRBC Absolute 0.00 <0.10 K/mcL LAB HEMETOLOGY METHOD 05/14/2025 1:48 PM EDT [facility] LAB Blood Venous blood specimen / Unknown 05/14/2025 11:12 AM EDT 05/14/2025 1:13 PM EDT us Marco ZEPEDA LAB BLOOD ORDERABLES Final Res ult [facility]) [facility] LAB [address] [place] [address], from Last 3 Months Insurance [facility] Advance Directives * Full Code [...] currently active code status orders. Care Teams Mailing Clerk Relationship Specialty Start Date End Date Suleiman Foreman MD [address] [place] [address] Dr Pete [place] PCP - General Family Medicine 07/17/25
== END 2025-07-31 15:07 | disposition home or self-care (01) ==
LOC: HO.HMCFM 14:35
PROVIDERS: PCP Family Medicine; Visit Provider Family Medicine
DX: K76.89 Other specified diseases of liver (principal); M89.8X9 Other specified disorders of bone, unspecified site; G56.00 Carpal tunnel syndrome, unspecified upper limb

== ENCOUNTER 2025-08-08 05:58 | Outpatient (REF) | payer BC, SELFPAY ==
--- OUTSIDE RECORDS SUMMARY | 2025-08-08 06:03 | XMS_ITS | Clinical Summary ---
Author Organization 175 [facility] Address [address] [place] [address] Phone Care Team Providers Care Sponge Press Operator Name Role Phone Suleiman Foreman MD [...] MRI lumbar and thoracic spine 09/22/2021 at [facility] shows minimal degenerative changes, mild left foraminal L4-5 disc bulging, no significant foraminal or central stenosis at any level. He does not recall where his last C-spine MRI was done, will call us when he gets home and looks at the disc. I did review an old C-spine MRI at [facility] 02/24/13 that showed mild disc bulging at [...] PM EDT Office Visit General Surgery - [place] [address] [facility] [address] [place] [address] Obdulio Kim MD Unilateral recurrent inguinal hernia without obstruction or gangrene (Primary Dx) 05/14/2025 Lab Requisition [facility] - Main Lab [address] [facility] [place] [address] Marco Bullock PA Testicular hypofunction [...] Date Site/Laterality Comments SINUS SURGERY 2006 PROCEDURE: [place] UNLISTED PROCEDURE ACCESSORY SINUSES; COMMENT: polyp removed [...] this topic Medical Devices Implanted Type Area Aligning Checker Device Identifier Shelf Expiration Date Model / Serial / Lot Mesh 3dmax Lght Lg 4.1x6.2 R 4.1x6.2in - Sn/A - [id number] Implanted:Qty: 1 on 03/22/2025 by Obdulio Kim MD at [facility] Surgical Mesh Sling Implants Right: Abdomen CR BARD - DAVOL DIV 07/12/2029 [id number] / N/A / [id number] Procedures Procedure Name Priority Date/Time Associated Diagnosis Comments COMPLETE BLOOD COUNT Routine 05/14/2025 11:12 AM EDT Testicular hypofunction from Last 3 Months Results * Complete blood count (05/14/2025 11:12 AM EDT) WBC 5.3 4.8 - 10.8 K/mcL LAB HEMETOLOGY METHOD 05/14/2025 1:48 PM EDT [facility] LAB RBC 4.90 4.50 - 5.50 M/mcL LAB HEMETOLOGY METHOD 05/14/2025 1:48 PM EDT [facility] LAB Hemoglobin 14.9 13.5 - 17.5 g/dL LAB HEMETOLOGY METHOD 05/14/2025 1:48 PM EDT [facility] LAB Hematocrit 44.4 42.0 - 54.0 % LAB HEMETOLOGY METHOD 05/14/2025 1:48 PM EDT [facility] LAB MCV 91.4 79.0 - 98.0 FL LAB HEMETOLOGY METHOD 05/14/2025 1:[facility] MCH 30.7 27.0 - 32.0 pcg LAB HEMETOLOGY METHOD 05/14/2025 1:[facility] MCHC 33.6 32.0 - 37.0 g/dL LAB HEMETOLOGY METHOD 05/14/2025 1:48 PM EDT [facility] LAB RDW 12.4 11.0 - 15.0 % LAB HEMETOLOGY METHOD 05/14/2025 1:48 PM EDT [facility] LAB Platelets 181 130 - 400 K/mcL LAB HEMETOLOGY METHOD 05/14/2025 1:[facility] MPV 11.0 7.0 - 11.0 FL LAB HEMETOLOGY METHOD 05/14/2025 1:48 PM EDT [facility] LAB NRBC 0.0 <1.0 % LAB HEMETOLOGY METHOD 05/14/2025 1:48 PM EDT [facility] LAB NRBC Absolute 0.00 <0.10 K/mcL LAB HEMETOLOGY METHOD 05/14/2025 1:48 PM EDT [facility] LAB Blood Venous blood specimen / Unknown 05/14/2025 11:12 AM EDT 05/14/2025 1:13 PM EDT us Marco ZEPEDA LAB BLOOD ORDERABLES Final Res ult [facility] LAB [address] [place] [address], from Last [address] [facility] Advance Directives * Full Code - [...] currently active code status orders. Care Teams Sponge Press Operator Relationship Specialty Start Date End Date Suleiman Foreman MD [address] [place] [address] Dr Pete [place] PCP - General Family Medicine 07/17/25
--- OUTSIDE RECORDS SUMMARY | 2025-08-08 06:03 | XMS_ITS | Encounter Summary ---
Author Organization [facility] Address [address] [place] [address] Care Team Providers Care Feltmaker Name Role Phone Suleiman Foreman MD Primary Care Provider [phone] Encounter Details Date Type Department Care Team (Late st Contact Info) Description 05/14/2025 Lab Requisition [facility] - Main Lab [address] [facility] [place] [address] Marco Bullock, KATELYN [address] [place] [address] Testicular hypofunction Social History Tobacco [...] AM EDT) WBC 5.3 4.8 - 10.8 K/[facility] LAB HEMETOLOGY METHOD 05/14/2025 1:48 PM EDT [facility] RBC 4.90 4.50 - 5.50 M/mcL LAB HEMETOLOGY METHOD 05/14/2025 1:48 PM EDT [facility] LAB Hemoglobin 14.9 13.5 - 17.5 g/dL LAB HEMETOLOGY METHOD 05/14/2025 1:48 PM EDT [facility] LAB Hematocrit 44.4 42.0 - 54.0 % LAB HEMETOLOGY METHOD 05/14/2025 1:48 PM EDT [facility] LAB MCV 91.4 79.0 - 98.0 FL LAB HEMETOLOGY METHOD 05/14/2025 1:48 PM EDT [facility] LAB MCH 30.7 27.0 - 32.0 pcg LAB HEMETOLOGY METHOD 05/14/2025 1:48 PM EDT [facility] LAB MCHC 33.6 32.0 - 37.0 g/dL LAB HEMETOLOGY METHOD 05/14/2025 1:48 PM EDT [facility] LAB RDW 12.4 11.0 - 15.0 % LAB HEMETOLOGY METHOD 05/14/2025 1:48 PM EDT [facility] LAB Platelets 181 130 - 400 K/mcL LAB HEMETOLOGY METHOD 05/14/2025 1:48 PM EDT [facility] LAB MPV 11.0 7.0 - 11.0 FL LAB HEMETOLOGY METHOD 05/14/2025 1:48 PM EDT [facility] LAB NRBC 0.0 <1.0 % LAB HEMETOLOGY METHOD 05/14/2025 1:48 PM EDT [facility] LAB NRBC Absolute 0.00 <0.10 K/mcL LAB HEMETOLOGY METHOD 05/14[facility]25 [facility] Venous blood specimen / Unknown 05/14/2025 11:12 AM EDT 05/14/2025 1:13 PM EDT Marco ZEPEDA LAB BLOOD ORDERABLES Final Res ult [facility] ([facility]) [facility] LAB [address] [place] [address], documented in this encounter Visit Diagnoses Diagnosis Testicular hypofunction Other testicular hypofunction documented in this encounter Care Teams Feltmaker Relationship Specialty Start Date End Date Suleiman Foreman MD [address] [place] [address] Dr Ruvalcaba Higginson [place] PCP - General Family Medicine 07/17/25 documented as of this encounter
[2025-08-08 10:19] LABS: Appearance Urine Clear; Glucose Urine UA Negative (Negative); PH 5.5 (5.0-9.0); Specific Gravity - Urine 1.020 (1.005-1.025)
[2025-08-08 10:34] LABS: MANUAL DIFF FLAG NO
[2025-08-08 10:41] LABS: Hematocrit 44.3 % (42.0-52.0); Hemoglobin 15.3 g/dl (14.0-18.0); Imm Gran Abs Auto 0.01 X10*3/uL (0.00-0.03); Imm Gran Pct Auto 0.2 % (0.0-0.4); Lymphocytes Absolute Auto 2.2 X10*3/uL (1.2-4.9); Mean Corpuscular HGB Conc 34.5 g/dl (31.0-36.0); Mean Corpuscular Hemoglobin 30.7 pg (27.0-33.0); Mean Corpuscular Volume 89.0 fL (80.0-98.0); NRBC Abs Auto 0.000 X10*3/uL (0.0-0.012); NRBC Pct Auto 0.0 /100WBC (0.0-0.2); Platelet Count 171 X10*3/uL (160-400); Red Blood Count 4.98 X10*6/uL (4.60-5.80); White Blood Count 5.2 X10*3/uL (4.8-10.8)
[2025-08-08 11:24] LABS: Alanine Aminotransferase 28 U/L (0-40); Albumin Level 4.5 g/dL (3.5-5.0); Alkaline Phosphatase 63 U/L (39-117); Anion Gap 11 (12-20); Aspartate Amino Transferase 32 U/L (5-37); Blood Urea Nitrogen 19 mg/dL (9-16); Calcium 9.2 mg/dL (8.4-10.2); Carbon Dioxide 25 mmol/L (22-29); Chloride 107 mmol/L (96-108); Cholesterol 185 mg/dL (<200); Estimated Glomerular Filt Rate > 60; HDL Cholesterol 40 mg/dL (>40); Iron 87 mcg/dL (45-160); Percent Iron Saturation 36 % (15-50); Potassium 4.0 mmol/L (3.3-5.1); Sodium 139 mmol/L (135-145); Total Iron Binding Capacity 240 mcg/dL (228-428); Total Protein 7.8 g/dL (6.5-8.0); Triglycerides 86 mg/dL (<150); Unsaturated Iron Binding 153 ug/dL
[2025-08-08 12:17] LABS: Microalbum/Creatinine Ratio Ur 24.6 ug/mg cr (<30)
== END 2025-08-08 05:59 | disposition home or self-care (01) ==
LOC: HO.HMGCLDS 05:58
PROVIDERS: PCP Family Medicine; Visit Provider Family Medicine
DX: Z00.00 Encounter for general adult medical examination without abnormal findings (principal); Z12.5 Encounter for screening for malignant neoplasm of prostate; I10 Essential (primary) hypertension
CPT/HCPCS: 36415; 80053; 80061; 81003; 82043; 82570; 83540; 84153; 84443; 85025

== ENCOUNTER 2025-08-20 15:38 | Outpatient (AMB) | payer BC, SELFPAY ==
--- OUTSIDE RECORDS SUMMARY | 2025-08-20 17:58 | XMS_ITS | Encounter Summary ---
Author Organization [facility] Address [address] [place] [address] Care Team Providers Care Supervisor Laboratory Name Role Phone Suleiman Foreman MD Primary Care Provider Encounter Details Date Type Department Care Team (Late st Contact Info) Description 05/14/2025 Lab Requisition [facility] - Main Lab [address] [facility] [place] [address] Marco Bullock, KATELYN [address] [place] [address] Testicular hypofunction Social History Tobacco Use Types Packs/Day Years Used Date Smoking Tobacco: Never Alcohol Use Standard Drinks/Week Comments Not Currently 0 (1 standard drink = 0.6 oz pur e alcohol) Interpersonal Safety Answer Date Record ed Physical Abuse Unrecognized value 03/22/2025 Verbal Abuse Unrecognized value 03/22/2025 Sex and Gender Information Value Date [...] AM EDT) WBC 5.3 4.8 - 10.8 K/[facility] LAB HEMETOLOGY METHOD 05/14/2025 1:48 PM EDT [facility] LAB RBC 4.90 4.50 - 5.50 M/mcL LAB HEMETOLOGY METHOD 05/14/2025 1:48 PM EDT [facility] LAB Hemoglobin 14.9 13.5 - 17.5 g/dL LAB HEMETOLOGY METHOD 05/14/2025 1:48 PM EDT [facility] LAB Hematocrit 44.4 42.0 - 54.0 % LAB HEMETOLOGY METHOD 05/14/2025 1:48 PM EDT [facility] LAB MCV 91.4 79.0 - 98.0 FL LAB HEMETOLOGY METHOD 05/14/2025 1:48 PM EDT [facility] LAB MCH 30.7 27.0 - 32.0 pcg LAB HEMETOLOGY METHOD 05/14/2025 1:48 PM EDT [facility] LAB MCHC 33.6 32.0 - 37.0 g/dL LAB HEMETOLOGY METHOD 05/14/2025 1:48 PM EDT [facility] LAB RDW 12.4 11.0 - 15.0 % LAB HEMETOLOGY METHOD 05/14/2025 1:48 PM EDT [facility] LAB Platelets 181 130 - 400 K/mcL LAB HEMETOLOGY METHOD 05/14/2025 1:48 PM EDT [facility] LAB MPV 11.0 7.0 - 11.0 FL LAB HEMETOLOGY METHOD 05/14/2025 1:48 PM EDT [facility] LAB NRBC 0.0 <1.0 % LAB HEMETOLOGY METHOD 05/14/2025 1:48 PM EDT [facility] LAB NRBC Absolute 0.00 <0.10 K/mcL LAB HEMETOLOGY METHOD 05/14/2025 1:48 PM [facility] LAB Blood Venous blood specimen / Unknown 05/14/2025 11:12 AM EDT 05/14/2025 1:13 PM EDT us Marco R Byhalia PA LAB BLOOD ORDERABLES Final Res ult [facility]) [facility] LAB [address] [place] [address], documented in this encounter Visit Diagnoses Diagnosis Testicular hypofunction Other testicular hypofunction documented in this encounter Care Teams Supervisor Laboratory Relationship Specialty Start Date End Date Suleiman Foreman MD [address] [place] [address] Dr McnultyyoMATTHEW brizuela PCP - General Family Medicine 07/17/25 documented as of this encounter
--- OUTSIDE RECORDS SUMMARY | 2025-08-20 17:58 | XMS_ITS | Clinical Summary ---
Author Organization 175 [facility] Address [address] [place] [address] Phone Care Team Providers Care Cis Coordinator Name Role Phone Suleiman Foreman MD Primary Care Provider [phone] Allergies Active Allergy Reactions Criticality Noted Date [...] MRI lumbar and thoracic spine 09/22/2021 [place] [facility] shows minimal degenerative changes, mild left foraminal L4-5 disc bulging, no significant foraminal or central stenosis at any level. He does not recall where his last C-spine MRI was done, will call us when he gets home and looks at the disc. I did review an old C-spine MRI at [facility] 02/24/13 that showed mild disc bulging at [...] PM EDT Office Visit General Surgery - [address] [place] [address] Obdulio Kim MD Unilateral recurrent inguinal hernia without obstruction or gangrene (Primary Dx) from Last 3 Months Immunizations Immunization Administration Dates Next Due Influenza Quadravalent, MDCK [...] Date Site/Laterality Comments SINUS SURGERY 2006 PROCEDURE: [place] UNLISTED PROCEDURE ACCESSORY SINUSES; COMMENT: polyp removed [...] Health Maintenance Due Date Last Done Comments Colorectal Cancer Screening: Colonoscopy 1967 Hepatitis B Vaccines (1 of 3 - 19+ 3-dose series) 1986 Pneumococcal Vaccine: 50+ Years (1 of 1 - PCV) 2017 Cholesterol Screening (Lipid Panel) 10/14/2022 HIV Screening 10/14/2022 Hepatitis C Screening 10/14/2022 Social Influencers of Health Screening 10/14/2022 Zoster Vaccines (2 of 2) 02/15/2023 12/21/2022 Depression Screening 11/15/2024 COVID-19 Vaccine ( - season) 2025 09/13/2022, 10/05/2021, 03/12/2021, Additional history exists Influenza Vaccine (#1) 2025 , 08/26/2023, 09/13/2022, Additional history exists DTaP,Tdap,and Td Vaccines (2 - Td or Tdap) 04/26/2034 04/26/2024 RSV Immunization Adult Patients (1 - 1-dose 75+ series) 2042 HIB Vaccines Aged Out No longer eligi [...] this topic Medical Devices Implanted Type Area Sole Assessor Device Identifier Shelf Expiration Date Model / Serial / Lot Mesh 3dmax Lght Lg 4.1x6.2 R 4.1x6.2in - Sn/A - [id number] Implanted:Qty: 1 on 03/22/2025 by Obdulio Kim MD at [facility] Surgical Mesh Sling Implants Right: Abdomen CR BARD - DAVOL DIV 07/12/2029 [id number] / N/A / [id number] Insurance [facility] Advance Directives * Full Code - [...] currently active code status orders. Care Teams Cis Coordinator Relationship Specialty Start Date End Date Suleiman Foreman MD [address] [place] [address] Dr Pete [place] PCP - General Family Medicine 07/17/25
== END 2025-08-20 15:39 | disposition home or self-care (01) ==
LOC: HO.HMGAL 15:38
PROVIDERS: PCP Family Medicine; Visit Provider Registered Nurse Emergency
DX: J30.89 Other allergic rhinitis (principal)
CPT/HCPCS: 95117; 95165

== ENCOUNTER 2025-10-01 14:40 | Outpatient (AMB) | payer BC, SELFPAY ==
--- NOTE | 2025-10-01 14:50 | MHC.PC.OV ---
Vital Signs 10/01/25 14:53 Height 5 ft 8 in Weight 195 lb BMI 29.6 BP 120/70 Blood Pressure Location Lt brachial Position Sitting Respiration 14 Pulse 61 Pulse Source Pulse Oximeter Temp 98.0 F Temp Source Oral Pulse Oximetry (%) 96 Oxygen Delivery Method Room Air Intake Visit Reasons: f/u labs Intake Note: patient is scheduled to discuss lab results pt would also like to discuss how to maintain diverticulosis per pt urologist Hardwood Floor Sander Required: No Allergies acetaminophen (Percocet) Allergy (Unknown, Verified 10/01/25 14:51) NAUSEA/TINGLING FACE oxycodone (Percocet) Allergy (Unknown, Verified 10/01/25 14:51) NAUSEA/TINGLING FACE penicillin V Allergy (Unknown, Verified 10/01/25 14:51) DIARRHEA Sulfa (Sulfonamide Antibiotics) Allergy (Unknown, Verified 10/01/25 14:51) rash Sulfacet-R Allergy (Unknown, Uncoded 07/31/25 14:40) rash Medication List - Last Reconciled 10/01/25 by Suleiman Foreman MD baclofen 10 mg PO BID PRN coQ10 (ubiquinol) (Qunol Wolf CoQ10) 100 mg PO DAILY meloxicam 15 mg PO DAILY 30 days omeprazole 40 mg PO DAILY rosuvastatin 5 mg PO DAILY tadalafil 10 mg PO DAILY PRN testosterone 2 pumps topical DAILY tramadol 50 mg PO BID PRN valacyclovir 500 mg PO DAILY 30 days Tobacco use date assessed: 07/31/25 Dental Screening Dental Screen Date: 07/31/25 HPI f/u labs HPI Details 59 y/o male presents to f/u labs. Labs drawn 08/08/25. Reviewed labs with pt. Eosinophils elevated. Triglycerides 86. TC 185. LDL 128. HDL 40. PSA 2.47. Liver enzymes improved. [facility] Medical History Celiac disease Chronic musculoskeletal pain Hx of Lyme disease Polyarthralgia Surgical History H/O sinus surgery H/O neck surgery Hx of hernia repair Family History Mother Pancreatic cancer Father No problems noted. 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 Current occupational exposures/hazards: No Cognitive needs: No Hearing needs: No Vision needs: Yes Questionnaire Thrive Questionnaire Date Thrive assessed: 12/27/24 I am a: Patient What is your living situation today?: I have a steady place to live Within the past 12 months, did the food you bought not last and you didn't have the money to get more?: Never true Within the past 12 months, did you worry whether your food would run out before you got money to buy more?: Never true Do you have trouble paying for medicines?: No Do you have trouble getting transportation to medical appointments?: No Do you have trouble paying your heating and electricity bill?: No Do you have trouble taking care of your child, family member or friend?: No Do you have trouble with day-to-day activities such as bathing, preparing meals, shopping, managing finances, etc.?: No Are you currently unemployed and looking for a job?: No Are you interested in more education?: No Please select the resources that you would like help with: None Currently or been in a relationship where the following occur: No concerns reported THRIVE Score: 0 LINDA-7 AMB Questionnaire LINDA-7 Date LINDA - 7 assessed: 02/07/25 Source: Developed by Drs. Anam Campbell, Radha Nava, Toni Arana and colleagues, with an educational lin from [employer]. Review of Systems Const Denies chills, Denies fatigue, Denies fever(s), Denies headache(s) and Denies weakness ENT Denies dizziness and Denies headache(s) Card Denies chest pain, Denies lightheadedness, Denies dyspnea and Denies other (Palpitations) Resp Denies cough, Denies dyspnea, Denies wheezing and Denies other ( shortness of breath) Musc Denies numbness and Denies tingling Neuro Denies dizziness, Denies headache(s), Denies numbness, Denies tingling, Denies paresthesias and Denies weakness Psych Denies anxiety and Denies depression Endo Denies fatigue Aller/Immun Denies wheezing Physical exam (Primary Care) Vital Signs: Last Vital Signs Temp 98.0 F 10/01/25 14:53 Pulse 61 10/01/25 14:53 Resp 14 10/01/25 14:53 BP 120/70 10/01/25 14:53 Pulse Ox 96 10/01/25 14:53 Oxygen Delivery Method Room Air 10/01/25 14:53 BMI result Body Mass Index 29.6 Tobacco/Smoking Status: Tobacco use Status Tobacco use date assessed 07/31/25 10/01/25 14:56 Patient Tobacco Use Status Never used Tobacco 10/01/25 14:56 e-Cigarette/Vaping Use Never Used 10/01/25 14:56 Thrive Assessment: Date of Thrive Assessment Date Thrive assessed 12/27/24 10/01/25 14:56 Currently or been in a relationship where the following occur: No concerns reported Const General: no acute distress and well developed Nutritional Appearance: well nourished Orientation/consciousness: patient oriented x3 HENMT Head: Yes normocephalic and Yes atraumatic Eyes General: appearance normal, both eyes and all related structures Pupils: Equal, round and reactive pupils present EOM: EOMs intact bilaterally Resp Effort & Inspection: normal respiratory effort Auscultation: clear to auscultation bilaterally Cardio Rate: regular rate Rhythm: regular rhythm Heart sounds: S1 normal heart sound present, S2 normal heart sound present, no gallops, no murmurs and no rubs Neuro General: patient oriented x3 and gait normal Cranial nerves: Yes Equal, round and reactive pupils present Psych Affect: normal affect Coding Level of Care Code Est Pt Level 4 (74195) Diagnoses Hyperlipidemia E78.5 Elevated liver enzymes R74.8 Celiac disease K90.0 Screening for prostate cancer Z12.5 Diverticulosis K57.90 Assessment & Plan Assessment & Plan (1) Hyperlipidemia: Code(s): E78.5 - Hyperlipidemia, unspecified Category: Medical Plan: LDL cholesterol is too high Work on a diet low in saturated fats and cholesterol. He notes that due to celiac he has difficulty avoiding red meats and fats as he is already avoiding carbohydrates. (2) Elevated liver enzymes: Code(s): R74.8 - Abnormal levels of other serum enzymes Category: Medical Plan: Liver enzymes are back in normal range Continue good hydration (3) Celiac disease: Code(s): K90.0 - Celiac disease Category: Medical Plan: Stable Follow-up with GI as recommended (4) Screening for prostate cancer: Code(s): Z12.5 - Encounter for screening for malignant neoplasm of prostate Category: Medical Plan: PSA is less than 4 He is followed by Urology (5) Diverticulosis: Code(s): K57.90 - Diverticulosis of intestine, part unspecified, without perforation or abscess without bleeding Category: Medical Plan: Patient had questions regarding diverticulosis. He has diverticulosis but no history of diverticulitis No recommendations at this time. Reviewed symptoms of diverticulitis
[2025-10-01 14:53] VITALS: BP 120/70; PULSE 61; RESP 14; TEMP 36.7; O2SAT 96; BMI 29.6
== END 2025-10-01 15:13 | disposition home or self-care (01) ==
LOC: HO.HMCFM 14:41
PROVIDERS: PCP Family Medicine; Visit Provider Family Medicine
DX: E78.5 Hyperlipidemia, unspecified (principal); R74.8 Abnormal levels of other serum enzymes; K90.0 Celiac disease; Z12.5 Encounter for screening for malignant neoplasm of prostate; K57.90 Diverticulosis of intestine, part unspecified, without perforation or abscess without bleeding

== ENCOUNTER 2025-10-03 15:07 | Outpatient (AMB) | payer BC, SELFPAY ==
--- OUTSIDE RECORDS SUMMARY | 2025-10-04 03:40 | XMS_ITS | Data Portability ---
Author Organization [place] - [facility], Allergy Address [address] [address] Care Team Providers Care Automotive Electrician Helper Name Role Phone STEVE GALVIN Primary Care Provider Assessment Encounter Date Assessment Date Assessment LastModified by Organization Details LastModified Time 07/09/2025 07/09/2025 The patient demonstrates no evidence of nasal polyps or abnormal growths upon examination. The nasal passages appear clear, and there are no significant sinus abnormalities. Given the patient's history of prolonged allergy injections, it is recommended to reassess the necessity of continued injections. Typically, allergy injections are administered for five years, and the patient may no longer require them. The patient is advised to consider using Flonase nasal spray or Zyrtec for occasional symptom management. Retesting for allergies can be performed if desired, but the patient appears to be in good condition at present. Follow-up care can be provided if symptoms recur in the future. karlee Not available 07/09/2025 16:40:37 Plan of Treatment Reminders Order Date Submit Date Provider Last Modified By Organization Details Last Modified Time Details Appointments None record ed. Lab None record ed. Referral None record ed. Procedures None record ed. Surgeries None record ed. Imaging None record ed. Medication Orders None record ed. Patient TargetsNo targets recorded. Patient Instructions Encounter Date Encounter Id Patient Instructions Last Modified By Organization Details Last Modified Time 07/09/2025 [id number] - Consider using Flonase nasal spray or Zyrtec D for occasional symptom management. - Allergy retesting can be performed if desired. - Follow-up care is available if symptoms recur in the future. [email or web address] Not available 07/09/2025 14:32:48 Please note: Parts of this encounter note have been generated by AI based on audio conversation. Patient consent was required prior to utilizing this technology. Content review was required prior to finalizing the note. [email or web address] Not available 07/09/2025 14:32:48 Reason for Referral None Reported. Problems Name Problem SNOMED Code Status Onset Date Resolution Date Notes Provider Name and Address Organization Details Recorded Time Perennial allergic rhinitis 812249447 Active 025 GABRIELLA LYNNE MD [address] [address], [place], [address], [facility] - [facility] [place] 14:31:41 Nasal congestion 66032792 Active 025 GABRIELLA LYNNE MD [address], [address], [facility] - [facility] 14:32:04 Problem Notes None recorded. Procedures Surgical History Date Name Laterality Status Provider Name and Address Organization Details Recorded Time JMSNasal/Sinus Endoscopy completed GABRIELLA ASKEW MD [address] [place] [address],[address], [address], [facility] [place] 07/09/2025 14:31:33 nasal polypectomy completed GABRIELLA ASKEW MD [address] [place] [address],[address], [address], [facility] 07/09/2025 14:26:46 Imaging Results None recorded. Procedure Notes None recorded. Medical Equipment None Reported. Allergies No known drug allergies Medications Name Sig Start Date Stop Date Status Note LastModified by Organization Details LastModified Time doxycycline hyclate 100 mg capsule TAKE 1 CAPSULE BY MOUTH TWICE A DAY FOR 7 DAYS 07/09 completed Not Available Not Available Not Available azithromyci n 250 mg tablet TAKE 2 TABLETS BY MOUTH TODAY, THEN TAKE 1 TABLET DAILY FOR 4 DAYS DIRECTED 07/09 completed Not Available Not Available Not Available benzonatate 200 mg capsule TAKE 1 CAPSULE BY MOUTH 3 TIMES A DAY FOR 7 DAYS FOR COUGH 07/09 completed Not Available Not Available Not Available hydrocodone 5 mg-acetamin ophen 325 mg tablet TAKE 1 TABLET BY MOUTH EVERY 6 HOURS NEEDED FOR MODERATE PAIN FOR UP TO 5 DAYS. DAILY MAX: 4 TAB 07/09 completed Not Available Not Available Not Available meloxicam 15 mg tablet TAKE 1 TABLET BY MOUTH EVERY DAY active Not Available Not Available No t Available valacyclovi r 500 mg tablet TAKE 1 TABLET BY MOUTH EVERY DAY active Not Available Not Available No t Available rosuvastati n 5 mg tablet TAKE 1 TABLET BY MOUTH DAILY active Not Available Not Available No t Available tadalafil 10 mg tablet TAKE 1 TABLET BY MOUTH HALF-HOUR PRIOR TO SEXUAL INTERCOUR SE NO MORE THAN ONCE EVERY 72 HOURS active Not Available Not Available No t Available testosteron e 20.25 mg/1.25 gram per pump act.(1.62 %) transdermal gel PLACE 2 PUMPS TO UPPER BACK, CHEST/ARM DAILY ROTATE SITES WASH HANDS AFTER USE active Not Available Not Available No t Available Xiidra 5 % eye drops in a dropperette INSTILL 1 DROP INTO EACH EYE TWICE DAILY, 12 HOURS APART active Not Available Not Available No t Available Vitals Date Recorded Body height Body mass index (BMI) Body weight Systolic And Diastolic Provider Name and Address Organization Details Last Updated DateTime 07/09/2025 172.72 cm 29.6 kg/m2 42480.51 g 132/84 mm[Hg] Micaela Chu [place] - [facility] 07/09/2025 14:15:06 Social History None recorded. Functional Status None recorded. Mental Status None recorded. Family History Nothing Reported Notes:- Father: History of a llergies and sensitivity after discontinuing allergy injections. Medical History No medical history recorded. Past Encounters Encounter ID Performer Location Encounter Start Date Encounter Closed Date Diagnosis/Indication Diagnosis SNOMED-CT Code Diagnosis ICD10 Code Diagnosis IMO Codes Diagnosis Note [id number] GABRIELLA FATIMA MD [facility] [address] [place] [address] 07/09/2025 14:07:09 07/09/2025 14:34:40 Perennial allergic rhinitis 851896530 J30.89 440757 Nasal congestion 0717465 0 R09.81 11437 Health Concerns Section Related Observation LastModified by Organization Detai ls LastModified Time None Recorded Concern Status LastModified by Organization Details LastModified Time None Recorded Advance Directives Directive None Recorded Payers Insurance Date Sequence Insurance Name Policy Number Policy Aguilar Covered Member ID Aguilar Member ID Guarantor Name 07/09/2025 1 [facility] [id number] Verenice Siegel [id number] Venancio Siegel Notes Date Note Type Note Provider Name and Address Organization Details Recorded Time 07/09/2025 text/html Venancio Siegel is a 59-year-old male who presents for evaluation of nasal passages and allergies. He reports a history of two prior surgeries for nasal polyps performed by his previous physician, which significantly improved his symptoms. He has been receiving allergy injections for over 40 years and continues to do so once a month, citing his father's experience of increased sensitivity after discontinuing injections. He occasionally uses Flonase nasal spray and Zyrtec D for symptom management but has not used Flonase in several years. He denies any current serious issues and seeks continuity of care for his allergies following the longterm of his previous physician. GABRIELLA ASKEW MD [address] [place] [address], [place], [address], [facility] 07/09/2025 16:40:49
--- OUTSIDE RECORDS SUMMARY | 2025-10-04 03:40 | XMS_ITS | Continuity of Care Document ---
Author Organization [place] - [facility], [facility] Address [address] [place] [address] Care Team Providers Care Electric Repair Supervisor Name Role Phone GLENIS STEVE Primary Care Provider Assessment Encounter Date Assessment [...] provided if symptoms recur in the future. [email or web address] Not available 07/09/2025 16:40:37 Plan of Treatment [...] By Organization Details Last Modified Time 07/09/2025 80224 - Consider using Flonase nasal spray or [...] Organization Details Recorded Time Perennial allergic rhinitis 644632854 Active 025 GABRIELLA LYNNE MD [address], [address], [facility] - [facility] 14:31:41 Nasal congestion 64991742 Active 025 GABRIELLA LYNNE MD [address], [address], [facility] 14:32:04 Problem Notes None recorded. Procedures Surgical History Date Name Laterality Status Provider Name and Address Organization Details Recorded Time JMSNasal/Sinus Endoscopy completed GABRIELLA ASKEW MD [address] [place] [address],[address], [address], [facility] 07/09/2025 14:31:33 nasal polypectomy completed GABRIELLA ASKEW MD [address] [place] [address],[address], [address], [facility] 07/09/2025 14:26:46 Imaging Results None recorded. Procedure [...] Updated DateTime 07/09/2025 172.72 cm 29.6 kg/m2 09221.51 g 132/84 mm[Hg] Micaela Chu [place] - [facility] 07/09/2025 14:15:06 Social History None recorded. Functional Status None recorded. Mental Status None recorded. Family History Nothing Reported Notes:- Father: History of a llergies and sensitivity after discontinuing allergy injections. Medical History No medical history recorded. Past Encounters Encounter ID Performer Location Encounter Start Date Encounter Closed Date Diagnosis/Indication Diagnosis SNOMED-CT Code Diagnosis ICD10 Code Diagnosis IMO Codes Diagnosis Note [id number] GABRIELLA FATIMA MD [facility] 100 [facility] [address] 07/09/2025 14:07:09 07/09/2025 14:34:40 Perennial allergic rhinitis 403419389 J30.89 810549 Nasal congestion 4517185 0 R09.81 03349 Health Concerns Section Related Observation LastModified by Organization Detai ls LastModified Time None Recorded Concern Status LastModified by Organization Details LastModified Time None Recorded Payers Encounter Date Sequence Insurance Name Policy Number Policy Aguilar Covered Member ID Aguilar Member ID Guarantor Name 07/09/2025 1 [facility] [id number] Verenice Siegel [id number] Venancio Siegel Notes Date Note Type [...] of care for his allergies following the prison of his previous physician. GABRIELLA ASKEW MD [address] [place] [address], [place], [address], [facility] 07/09/2025 16:40:49
== END 2025-10-03 15:07 | disposition home or self-care (01) ==
LOC: HO.HMGAL 15:07
PROVIDERS: PCP Family Medicine; Visit Provider Registered Nurse Emergency
DX: J30.89 Other allergic rhinitis (principal)
CPT/HCPCS: 95117; 95165

== ENCOUNTER 2025-10-29 15:05 | Outpatient (AMB) | payer BC, SELFPAY ==
--- OUTSIDE RECORDS SUMMARY | 2025-10-29 21:37 | XMS_ITS | Data Portability ---
Author Organization [place] - [facility], Allergy Address [address] [address] Care Team Providers Care World Travel Counselor Name Role Phone STEVE GALVIN Primary Care [...] By Organization Details Last Modified Time 07/09/2025 36300 - Consider using Flonase nasal spray or [...] Organization Details Recorded Time Perennial allergic rhinitis 948339280 Active 025 GABRIELLA LYNNE MD [address] [address], [place], [address], [facility] - [facility] [place] 14:31:41 Nasal congestion 38370447 Active 025 GABRIELLA LYNNE MD [address], [address], [facility] - [facility] 14:32:04 Problem Notes None recorded. Procedures Surgical History Date Name Laterality Status Provider Name and Address Organization Details Recorded Time JMSNasal/Sinus Endoscopy completed GABRIELLA ASKEW MD [address] [place] [address],[address], [address], [facility] [place] 07/09/2025 14:31:33 nasal polypectomy completed GABRIELLA ASKEW MD [address] [place] [address],[address], [address], [facility] 07/09/2025 14:26:46 Imaging Results None recorded. Procedure [...] Updated DateTime 07/09/2025 172.72 cm 29.6 kg/m2 18559.51 g 132/84 mm[Hg] Micaela Chu [place] - [facility] 07/09/2025 14:15:06 Social History None recorded. Functional Status None recorded. Mental Status None recorded. Family History Nothing Reported Notes:- Father: History of a llergies and sensitivity after discontinuing allergy injections. Medical History No medical history recorded. Past Encounters Encounter ID Performer Location Encounter Start Date Encounter Closed Date Diagnosis/Indication Diagnosis SNOMED-CT Code Diagnosis ICD10 Code Diagnosis IMO Codes Diagnosis Note [id number] GABRIELLA FATIMA MD [facility] [address] [place] [address] 07/09/2025 14:07:09 07/09/2025 14:34:40 Perennial allergic rhinitis 124931146 J30.89 137261 Nasal congestion 9905790 0 R09.81 46802 Health Concerns Section Related Observation LastModified by Organization Detai ls LastModified Time None Recorded Concern Status LastModified by Organization Details LastModified Time None Recorded Advance Directives Directive None Recorded Payers Insurance Date Sequence Insurance Name Policy Number Policy Aguilar Covered Member ID Aguilar Member ID Guarantor Name 07/09/2025 1 [facility]: O [facility] [id number] Verenice Siegel [id number] Venancio Siegel Notes Date Note Type [...] of care for his allergies following the intermediate of his previous physician. GABRIELLA ASKEW MD [address] [place] [address], [place], [address], [facility] 07/09/2025 16:40:49
--- OUTSIDE RECORDS SUMMARY | 2025-10-29 21:37 | XMS_ITS | Clinical Summary ---
Author Organization 175 [facility] Address [address] [place] [address] Phone Care Team Providers Care Twister Operator Name Role Phone Suleiman Foreman MD [...] MRI lumbar and thoracic spine 09/22/[address] [facility] shows minimal degenerative changes, mild left foraminal L4-5 disc bulging, no significant foraminal or central stenosis at any level. He does not recall where his last C-spine MRI was done, will call us when he gets home and looks at the disc. I did review an old C-spine MRI [place] [facility] 02/24/13 that showed mild disc bulging at [...] minutes, in reviewing history, exam, films, plan. Immunizations Immunization Administration Dates Next Due Influenza [...] on file Sexual Orientation Not on file Last Filed Vital Signs Vital Sign Reading [...] 12/21/2022 Depression Screening 11/15/2024 COVID-19 Vaccine ( season) 2025 09/13/2022, 10/05/2021, 03/12/2021, Additional history [...] this topic Medical Devices Implanted Type Area Bogger Operator Device Identifier Shelf Expiration Date Model / Serial / Lot Mesh 3dmax Lght Lg 4.1x6.2 R 4.1x6.2in - Sn/A - [id number] Implanted:Qty: 1 on 03/22/2025 by Obdulio Kim MD at [facility] Surgical Mesh Sling Implants Right: Abdomen CR BARD - DAVOL DIV 07/12/2029 [id number] / N/A / [id number] Insurance [facility] Advance Directives * Full Code - [...] currently active code status orders. Care Teams Twister Operator Relationship Specialty Start Date End Date Suleiman Foreman MD [address] [place] [address] Dr Pete MA PCP - General Family Medicine 07/17/25
--- OUTSIDE RECORDS SUMMARY | 2025-10-29 21:37 | XMS_ITS | Encounter Summary ---
Author Organization [facility] Address [address] [place] [address] Care Team Providers Care Aircraft Sheet Metal Mechanic Name Role Phone Suleiman Foreman MD Primary Care Provider Encounter Details Date Type Department Care Team (Late st Contact Info) Description 05/14/[address] [facility] - Main Lab [address] [facility] [place] [address] Marco Bullock, KATELYN [address] [place] [address] Testicular hypofunction Social History Tobacco [...] AM EDT) WBC 5.3 4.8 - 10.8 K/[facility] LAB HEMETOLOGY METHOD 05/14/2025 1:48 PM EDT [facility] LAB RBC 4.90 4.50 - 5.50 M/mcL LAB HEMETOLOGY METHOD 05/14/2025 1:48 PM EDT [facility] LAB Hemoglobin 14.9 13.5 - 17.5 g/dL LAB HEMETOLOGY METHOD 05/14/2025 1:48 PM EDT [facility] LAB Hematocrit 44.4 42.0 - 54.0 % LAB HEMETOLOGY METHOD 05/14/2025 1:48 PM EDT [facility] LAB MCV 91.4 79.0 - 98.0 FL LAB HEMETOLOGY METHOD 05/14/2025 1:48 PM EDT [facility] LAB MCH 30.7 27.0 - 32.0 pcg LAB HEMETOLOGY METHOD 05/14/2025 1:48 PM EDT [facility] LAB MCHC 33.6 32.0 - 37.0 g/dL LAB HEMETOLOGY METHOD 05/14/2025 1:48 PM EDT [facility] LAB RDW 12.4 11.0 - 15.0 % LAB HEMETOLOGY METHOD 05/14/2025 1:48 PM EDT [facility] LAB Platelets 181 130 - 400 K/mcL LAB HEMETOLOGY METHOD 05/14/2025 1:48 PM EDT [facility] LAB MPV 11.0 7.0 - 11.0 FL LAB HEMETOLOGY METHOD 05/14/2025 1:48 PM EDT [facility] LAB NRBC 0.0 <1.0 % LAB HEMETOLOGY METHOD 05/14/2025 1:48 PM EDT [facility] LAB NRBC Absolute 0.00 <0.10 K/mcL LAB HEMETOLOGY METHOD 05/14/2025 1:48 PM [facility] LAB Blood Venous blood specimen / Unknown 05/14/2025 11:12 AM EDT 05/14/2025 1:13 PM EDT us Marco [place] LAB BLOOD ORDERABLES Final Res ult [facility] ([facility]) [facility] [address] [place] [address], documented in this encounter Visit Diagnoses Diagnosis Testicular hypofunction Other testicular hypofunction documented in this encounter Care Teams Aircraft Sheet Metal Mechanic Relationship Specialty Start Date End Date Suleiman Foreman MD [address] [place] [address] Dr McnultyyoMATTHEW brizuela PCP - General Family Medicine 07/17/25 documented as of this encounter
== END 2025-10-29 15:07 | disposition home or self-care (01) ==
LOC: HO.HMGAL 15:05
PROVIDERS: PCP Family Medicine; Visit Provider Registered Nurse Emergency
DX: J30.89 Other allergic rhinitis (principal)
CPT/HCPCS: 95117; 95165